=== PATIENT | female | born 2000 | race Two or more races ===

== ENCOUNTER 2023-06-27 10:07 | Emergency (ER) | payer BC, OTHER, SELFPAY ==
[2023-06-27 10:14] VITALS: BP 115/78; PULSE 109; RESP 16; TEMP 36.6; O2SAT 98; BMI 29.3
--- NOTE | 2023-06-27 10:20 | ECG_ITS ---
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
[2023-06-27 10:31] LABS: Basophils Absolute Auto 0.1 10^3/uL (0.0-0.1); Basophils Percent Auto 0.6 % (0.2-2.0); Eosinophils Absolute Auto 0.1 10^3/uL (0.0-0.7); Eosinophils Percent Auto 1.1 % (0.9-7.0); Hematocrit 45.5 % (36.0-48.0); Hemoglobin 14.8 g/dL (12.0-16.0); Immature Granulocytes Abs Auto 0.01 10^3/uL (0.00-0.03); Immature Granulocytes Pct Auto 0.1 % (0.0-0.5); Lymphocytes Absolute Auto 1.8 10^3/uL (1.2-3.8); Mean Corpuscular HGB Conc 32.5 g/dL (29.9-35.2); Mean Corpuscular Hemoglobin 27.7 pg (26.7-34.0); Mean Corpuscular Volume 85.2 fL (81.0-99.0); Mean Platelet Volume 10.1 fL (9.5-13.5); Monocytes Absolute Auto 0.4 10^3/uL (0.3-0.8); Monocytes Percent Auto 5.3 % (1.7-12.0); Neutrophils Absolute Auto 5.7 10^3/uL (1.4-6.5); Neutrophils Percent Auto 70.9 % (43.0-75.0); Platelet Count 320 10^3/uL (150-450); Red Blood Count 5.34 10^6/uL (4.20-5.40); Red Cell Distribution Width 12.5 % (11.0-15.0)
[2023-06-27 10:45] LABS: HCG Qualitative NEGATIVE (NEGATIVE)
[2023-06-27 10:54] LABS: Anion Gap 13.3; BUN Creatinine Ratio 17.2; Calcium 9.2 mg/dL (8.5-10.1); Carbon Dioxide 26.5 mmol/L (21.0-32.0); Chloride 104 mmol/L (98-107); Estimated GFR (African America >60 (>=60); Estimated GFR (Non-African Ame >60 (>=60); Glucose 93 mg/dL (74-106); Potassium 3.8 mmol/L (3.5-5.1); Sodium 140 mmol/L (136-145); Thyroid Stimulating Hormone <0.007 uIU/mL (0.358-3.740)
--- NOTE | 2023-06-27 11:06 | ED_ITS ---
HPI - General Adult General Chief complaint: Dizziness Stated complaint: FAST HEART/ DIZZINESS Time Seen by Provider: 06/27/23 10:16 Source: patient and family Mode of arrival: walk-in Limitations: no limitations History of Present Illness HPI narrative: 22-year-old female presents for palpitations. She has a history of thyroid disorder and is on medication for it. 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 She felt like her heart was racing. No fever or vomiting. She doesn't complain of chest pain or shortness of breath. Related Data Home Medications Medication Instructions Recorded Confirmed hydroxyzine HCl 25 mg tablet 25 mg PO Q8H PRN anxiety 06/27/23 06/27/23 methimazole 5 mg tablet 5 mg PO DAILY 06/27/23 06/27/23 Allergies Allergy/AdvReac Type Severity Reaction Status Date / Time No Known Drug Allergies Allergy Verified 06/27/23 10:19 Review of Systems ROS Narrative A ten point review of systems is negative except as noted above. PFSH PFSH Social History Smoking status: Never smoker Exam Narrative Exam Narrative: Nurses note and vital signs reviewed and patient is not hypoxic. General: The patient appears well and in no apparent distress. Patient is resting comfortably on cart. Skin: Warm, dry, no pallor noted. There is no rash noted. Head: Normocephalic, atraumatic Eye: Normal conjunctiva, no drainage Ears, Nose, Mouth, and Throat: oral mucosa is moist. Nares patent. Cardiovascular: Regular Rate and Rhythm, mild tachycardia Respiratory: Patient is in no distress, no accessory muscle use, lungs are clear to auscultation, no wheezing, rales or rhonchi Back: non-tender GI: soft and nontender Musculoskeletal: The patient has no evidence of calf tenderness, no pitting edema, symmetrical pulses noted bilaterally Neurological: A&O, normal speech Psychiatric: Cooperative Constitutional Vital Signs, click to edit/add: Last Vital Signs Temp 97.8 F 06/27/23 10:14 Pulse 109 H 06/27/23 10:14 Resp 16 06/27/23 10:14 BP 115/78 06/27/23 10:14 Pulse Ox 98 06/27/23 10:14 O2 Del Method Room Air 06/27/23 10:14 Course Vital Signs Vital signs: Vital Signs Temperature 97.8 F 06/27/23 10:14 Pulse Rate 109 H 06/27/23 10:14 Respiratory Rate 16 06/27/23 10:14 Blood Pressure 115/78 06/27/23 10:14 Pulse Oximetry 98 06/27/23 10:14 Oxygen Delivery Method Room Air 06/27/23 10:14 Temperature 97.8 F 06/27/23 10:14 Pulse Rate 109 H 06/27/23 10:14 Respiratory Rate 16 06/27/23 10:14 Blood Pressure 115/78 06/27/23 10:14 Pulse Oximetry 98 06/27/23 10:14 Oxygen Delivery Method Room Air 06/27/23 10:14 Medical Decision Making MDM Narrative Medical decision making narrative: Her workup is essentially negative. Thyroid-stimulating hormone is low and this is expected given her treatment. Her heart rate has come down to the 80s and 90s and she is able to be discharged home. I've no clinical suspicion of a thyroid storm. Treatment diagnosis and follow-up were discussed with the patient. Differential Diagnosis Differential Diagnosis: palpitations, anxiety, hyperthyroidism Lab Data Lab results reviewed: Yes I reviewed the patient's lab results Labs: Lab Results 06/27/23 Range/Units 10:25 WBC 8.0 (4.0-11.0) 10^3/uL RBC 5.34 (4.20-5.40) 10^6/uL Hgb 14.8 (12.0-16.0) g/dL Hct 45.5 (36.0-48.0) % MCV 85.2 (81.0-99.0) fL MCH 27.7 (26.7-34.0) pg MCHC 32.5 (29.9-35.2) g/dL RDW 12.5 (11.0-15.0) % Plt Count 320 (150-450) 10^3/uL MPV 10.1 (9.5-13.5) fL Neut % (Auto) 70.9 (43.0-75.0) % Lymph % (Auto) 22.0 (20.5-60.0) % [place] % (Auto) 5.3 (1.7-12.0) % Eos % (Auto) 1.1 (0.9-7.0) % Baso % (Auto) 0.6 (0.2-2.0) % Neut # (Auto) 5.7 (1.4-6.5) 10^3/uL Lymph # (Auto) 1.8 (1.2-3.8) 10^3/uL [place] # (Auto) 0.4 (0.3-0.8) 10^3/uL Eos # (Auto) 0.1 (0.0-0.7) 10^3/uL Baso # (Auto) 0.1 (0.0-0.1) 10^3/uL Abs Immat Gran (auto) 0.01 (0.00-0.03) 10^3/uL Imm/Tot Granulo (auto) 0.1 (0.0-0.5) % Sodium 140 (136-145) mmol/L Potassium 3.8 (3.5-5.1) mmol/L Chloride 104 (98-107) mmol/L Carbon Dioxide 26.5 (21.0-32.0) mmol/L Anion Gap 13.3 BUN 11.0 (7.0-18.0) mg/dL Creatinine 0.64 (0.55-1.02) mg/dL Est GFR ( Amer) >60 (>=60) Est GFR (Non-Af Amer) >60 (>=60) BUN/Creatinine Ratio 17.2 Glucose 93 (74-106) mg/dL Calcium 9.2 (8.5-10.1) mg/dL TSH <0.007 L (0.358-3.740) uIU/mL Serum HCG, Qual Negative (NEGATIVE) ECG Data Attestation: I personally reviewed and interpreted this ECG as follows: (EKG on my interpretation shows sinus tachycardia with a rate of 125.) Discharge Plan Discharge Chief Complaint: Dizziness Clinical Impression: Palpitations Patient Disposition: Home, Self-Care Time of Disposition Decision: 12:06 Condition: Good Mode of Transportation: Private Vehicle Prescriptions / Home Meds: No Action hydroxyzine HCl 25 mg tablet 25 mg PO Q8H PRN (Reason: anxiety) methimazole 5 mg tablet 5 mg PO DAILY Instructions: Heart Palpitations (DC) Stand Alone Forms: Portal Instructions Referrals: DEON WOODALL [Primary Care Provider] - 1 week
== END 2023-06-27 12:21 | disposition home or self-care (01) ==
PROVIDERS: Emergency Provider Emergency Medicine; PCP Nurse Practitioner Family
DX: R00.2 Palpitations (principal); E07.9 Disorder of thyroid, unspecified
CPT/HCPCS: 36415; 80048; 84443; 84703; 85025; 93005; 99284

== ENCOUNTER 2023-10-10 06:30 | Emergency (ER) | payer BC, OTHER, SELFPAY ==
[2023-10-10] VITALS (17 sets, daily range): BP systolic 118; BP diastolic 85; PULSE 59–80; RESP 12–25; TEMP 36.6; O2SAT 94–100; BMI 29.3
--- OUTSIDE RECORDS SUMMARY | 2023-10-10 07:02 | XMS_ITS | CCD ---
Author Organization [facility] Care Team Providers Care Clinical Provider Trainer Name Role Phone Tari Carmona Unavailable EMERSON ., YULIANA Admitting Unavailable EMERSON ., YULIANA Attending Unavailable GUERO ., BÁRBARA HARKINS Consulting DEON Marlow Primary Care Unavailable HARSHA HURST Consulting Unavailable DILLON ., DR DA SILVA Admitting Unavailable DILLON ., DR DA SILVA Consulting Unavailable DILLON ., DR DA SILVA Attending Unavailable TALISHA, DEON Primary Care Unavailable Deon Steinberg Primary Care Unavailable Blayne Do Attending Unavailable Blayne Do Admitting Unavailable Unavailable Primary Care Provider Kenzie Billy MDnifer Primary Care Provider DEON STEINBERG Attending Unavailab DEON Grove Referring Unavailab AURORA Ruiz Attending Unavailab CHANI Tariq Referring Unavailable DEON STEINBERG Referring Unavailab CHANI Tariq Attending Unavailable Medications Current Medications Medication Drug Class(es) Dates Sig (Normalized) Sig (Original) dextromethorphan hydrobromide 1.5 mg/ml / pyrilamine maleate 1.5 mg/ml oral solution (1 source) Uncompetitive R-mwkwhc-B-aspartate Receptor Antagonist, Sigma-1 Agonist Start: 11-09-2021 take 10 mL by mouth every eight hours [place] DM 7.5-7.5 MG/5ML 10 mL Orally every 8 hours for 5 days Oct, Active Ethinyl Estradiol / norelgestromin (1 source) Progestin, Estrogen Xulane Activ e fluticasone propionate 0.05 mg/actuat metered dose nasal spray (1 source) Corticosteroid Start: 11-09-2021 take 1 spray(s) nasal route once daily Flonase Allergy Relief 50 MCG/ACT 1 spray in each nostril Nasally Once a day for 14 day(s) Oct, Active Completed/Discontinued Medications Medication Drug Class(es) Dates Sig (Normalized) Sig (Original) [id number] 200 actuat albuterol 0.09 mg/actuat metered dose inhaler (1 source) beta2-Adrenergic Agonist Start: 07-24-2021 take 2 puff(s) by inhalation four times daily as needed Albuterol Sulfate HFA 108 (90 Base) MCG/ACT 2 puffs Inhalation qid prn Jul, Not-Taking Ethinyl Estradiol / norgestimate (7 sources) Progestin, Estrogen Start: 06-26-2023 norgestimate-ethiny l estradiol (Ortho-Cyclen) 0.25-35 MG-MCG tablet Indications: Encounter for surveillance of contraceptive pills take 1 tablet by mouth every morning 84 tablet 0 06/26/2023 Active Start: 06-26-2023 take 1 tablet by renia th once daily in the morning norgestimate 0.25 mg-ethinyl estradiol 35 mcg 0.25-35 mg-mcg per tablet Take 1 tablet by mouth every morning. 0 06/26/2023 Active Comment on above: Take 1 tablet by reina th every morning. hydrOXYzine hydrochloride 25 mg oral tablet (7 sources) Antihistamine Start: 06-17-20 23 hydrOXYzine HCl (ATARAX) 25 mg tablet Take 25 mg by mouth as needed. 0 06/17/2023 Active Comment on above: Take 25 mg by mouth as needed. methIMAzole 10 mg oral tablet (13 sources) Thyroid Hormone Synthesis Inhibitor Start: 08-20-19 24 take 1 tablet by mouth twice daily methIMAzole (TAPAZOLE) 10 mg tablet Indications: Hyperthyroidism Take 1 tablet by mouth two times a day. 60 tablet 5 08/20/2023 Active Start: 07-01-2023 take 1 tablet by reina th twice daily methIMAzole (TAPAZOLE) 10 mg tablet Indications: Hyperthyroidism Take 1 tablet by mouth two times a day. 60 tablet 5 07/01/2023 Active Start: 06-10-2023 take 1 tablet by reina th once daily in the morning methIMAzole (TAPAZOLE) 5 mg tablet Take 5 mg by mouth every morning. 0 06/10/2023 Active Comment on above: Take 5 mg by mouth e very morning. Take 1 tablet by reina th two times a day. predniSONE 20 mg oral tablet (1 source) Start: 07-24-19 take 1 tablet by mouth every twelve hours predniSONE 20 MG 1 tablet Orally bid for 5 day(s) Jul, Not-Taking 24 hr propranolol hydrochloride 60 mg extended release oral capsule (6 sources) beta-Adrenergic Coy Start: 08-20-19 take 1 capsule by mouth once daily propranolol ER (INDERAL LA) 60 mg 24 hr capsule Indications: Hyperthyroidism Take 1 capsule by mouth once daily. 30 capsule 5 08/20/2023 Active Start: 07-01-2023 take 1 capsule by mo uth once daily propranolol ER (INDERAL LA) 120 mg 24 hr capsule Indications: Hyperthyroidism Take 1 capsule by mouth once daily. 30 capsule 3 07/01/2023 Active Comment on above: Take 1 capsule by mo uth once daily. Problems Active Problems Problem Classification Problem Date Documented Da te Episodic/Chronic Acute and chronic tonsillitis (7 sources) Chronic adenotonsillitis; Translations: [Chronic tonsillitis and adenoiditis] Onset: 01-06-2023 07-01-2023 Chronic Anxiety disorders (14 sources) Anxiety; Translations: [Anxiety disorder, unspecified] Onset: 01-06-2023 07-01-2023 Chronic Heart valve disorders (7 sources) Mitral valve regurgitation; Translations: [Nonrheumatic mitral (valve) insufficiency] Onset: 01-06-2023 07-01-2023 Chronic Menstrual disorders (7 sources) Disorder of menstruation; Translations: [Irregular menstruation, unspecified] Onset: 01-06-2023 07-01-2023 Chronic Mood disorders (7 sources) Moderate major depression, single episode; Translations: [Major depressive disorder, single episode, moderate] Onset: 01-06-2023 07-01-2023 Chronic Nausea and vomiting (5 sources) Nausea with vomiting, unspecified; Translations: [NAUSEA WITH VOMITING UNSPECIFIED] Onset: 12-24-2021 Episodic Thyroid disorders (15 sources) Hyperthyroidism; Translations: [Thyrotoxicosis, unspecified without thyrotoxic crisis or storm] Onset: 01-06-2023 07-01-2023 Chronic Unclassified (1 source) CONTACT W/AND (SUSP) EXPOS COVID-19; Translations: [CONTACT W/AND (SUSP) EXPOS COVID-19] Onset: 12-24-2021 Unclassified (1 source) Contusion of right forearm, initial encounter; Translations: [Contusion of right forearm, initial encounter] Onset: 01-30-2023 Past or Other Problems Problem Classification Problem Date Documented Da te Episodic/Chronic Immunizations and screening for infectious disease (1 source) Contact with and (suspected) exposure to other viral communicable diseases Onset: 11-09-2021 Resolved: 11-09-2021 Episodic Other upper respiratory infections (5 sources) Acute upper respiratory infection, unspecified; Translations: [ACUTE UP RESPIRATORY INFECTION UNS] Onset: 11-09-2021 Resolved: 11-09-2021 Episodic Viral infection (7 sources) Verruca vulgaris; Translations: [Other viral warts] Onset: 05-29-2023 07-01-2023 Episodic Results Test Name Value Interpretation Reference Range Facility TSH BLOOD (AK,AV,EU,FV,HL,NAREN ,MM,SP)on 10-03-2023 Free T3 [Mass/Vol] 2.7 pg/mL 2.3 - 4.2 0 pg/ml [facility] Free T4 [Mass/Vol] 0.7 ng/dL Abnormal 0.83 - 1. 60 ng/dL [facility] TSH Qn 16.550 m[IU]/L Abnormal 0.270 - 4.200 mIU/L [facility] XR ABDOMEN 2 VIEWon 08-26-19 24 XR ABDOMEN 2 VIEW CLINICAL HISTORY: lower back pain, lower abdominal pain COMPARISON: FINDINGS: The bowel gas pattern is unremarkable. There are no dilated loops of bowel. There are no acute osseous changes. IMPRESSION: There are no acute intra-abdominal changes. ELECTRONICALLY SIGNED BY: Dennis Johnston MD Normal Not Available Isabel 07-31-2023 CHIDI Telephone (ENDOMN) MARÍA ANAYA ([id number]) 2 F Date Time Provider Department 07/31/23 CHANI COLES During your visit today, we recorded the following information about you: Hayes Poultry KillerAkiko 07/31/2023 10:52 AM Signed Updated labs from (location) [facility] Date labs collected 07/23/23 Date scanned in chart 07/31/23 Akiko Koo Compressed [employer] Pile Driver Operator II [facility]-F20 Allergies As of Date: 07/31/2023 (No Known Allergies) Date Reviewed: 07/01/2023 Reviewed by: Ramin Dunne Ma - Fully Assessed Reason for Visit: Outside Lab Results [753] Order(s):TSH AND FT4 MH PANEL [[id number]] Order #: [id number] Prescriptions as of 07/31/2023 - propranolol ER (INDERAL LA) 60 mg 24 hr capsule Take 1 capsule by mouth once daily. - methIMAzole (TAPAZOLE) 10 mg tablet Take 1 tablet by mouth two times a day. - hydrOXYzine HCl (ATARAX) 25 mg tablet Take 25 mg by mouth as needed. - methIMAzole (TAPAZOLE) 5 mg tablet Take 5 mg by mouth every morning. - norgestimate 0.25 mg-ethinyl estradiol 35 mcg 0.25-35 mg-mcg per tablet Take 1 tablet by mouth every morning. Problem List As Of Date 07/31/2023 Noted Resolved Anxiety [F41.9] 01/06/2023 Chronic adenotonsillitis [J35.03] 01/06/2023 Common wart [B07.8] 05/29/2023 Enlarged thyroid [E04.9] 01/06/2023 Major depressive disorder, single episode, mode*01/06/2023 Menstrual disorder [N92.6] 01/06/2023 Panic attacks [F41.0] 01/06/2023 Trace mitral regurgitation by prior echocardiog*01/07/20 23 Hyperthyroidism [E05.90] 07/01/2023 Encounter Status:Closed by CHANI COLES on 07/31/23 Normal [facility] CNPDorothy 07-28-2023 CHIDI Telephone (ENDOMN) MARÍA ANAYA ([id number]) 2 F Date Time Provider Department 07/28/23 CHANI COLES During your visit today, we recorded the following information about you: Andres Alexander 07/28/2023 3:10 PM Signed Called pt to her give number for her lab results. Pt sts she talk to the lab they have lost her has lost lab work and is looking for them now. Pt was instructed to call or send message when labs are found. pt requests a call regarding new medications prescribed pt can be reached via or number on file. Russellmadhu Rbavo Compressed [employer] Pile Driver Operator II [facility] F-20 Allergies As of Date: 07/28/2023 (No Known Allergies) Date Reviewed: 07/01/2023 Reviewed by: Ramin Dunne Ma - Fully Assessed Reason for Visit: Patient Update [1234] Prescriptions as of 07/28/2023 - hydrOXYzine HCl (ATARAX) 25 mg tablet Take 25 mg by mouth as needed. - methIMAzole (TAPAZOLE) 5 mg tablet Take 5 mg by mouth every morning. - norgestimate 0.25 mg-ethinyl estradiol 35 mcg 0.25-35 mg-mcg per tablet Take 1 tablet by mouth every morning. - methIMAzole (TAPAZOLE) 10 mg tablet Take 1 tablet by mouth two times a day. - propranolol ER (INDERAL LA) 120 mg 24 hr capsule Take 1 capsule by mouth once daily. Problem List As Of Date 07/28/2023 Noted Resolved Anxiety [F41.9] 01/06/2023 Chronic adenotonsillitis [J35.03] 01/06/2023 Common wart [B07.8] 05/29/2023 Enlarged thyroid [E04.9] 01/06/2023 Major depressive disorder, single episode, mode*01/06/2023 Menstrual disorder [N92.6] 01/06/2023 Panic attacks [F41.0] 01/06/2023 Trace mitral regurgitation by prior echocardiog*01/07/20 23 Hyperthyroidism [E05.90] 07/01/2023 Encounter Status:Closed by ANDRES ALEXANDER on 07/28/23 Normal [facility] CNCOon 07-16-2023 CNCO Letter Text [facility] CNPNon 07-16-2023 CNPN Telephone (ENDOMN) MARÍA ANAYA ([id number]) 2 F Date Time Provider Department 07/16/23 CHANI COLES ENDOMN During your visit today, we recorded the following information about you: Ania Murray 07/16/2023 10:15 AM Signed Patient requesting to go over 07/01 thyroid tests. Please call and advise at [phone] Ania Murray [employer] Pile Driver Operator II Diabetes AND Endocrinology X-20 Karyn Schuster 07/16/2023 11:48 AM Signed Received document and laboratory results from provider to send to the patient via mail. Mailed to address we have on file. KEILY MCLAUGHLIN Compressed Air Pile Driver Operator II Endocrinology AND Metabolism [place] [facility] X-20 Allergies As of Date: 07/16/2023 (No Known Allergies) Date Reviewed: 07/01/2023 Reviewed by: Ramin Dunne Ma - Fully Assessed Prescriptions as of 07/16/2023 - hydrOXYzine HCl (ATARAX) 25 mg tablet Take 25 mg by mouth as needed. - methIMAzole (TAPAZOLE) 5 mg tablet Take 5 mg by mouth every morning. - norgestimate 0.25 mg-ethinyl estradiol 35 mcg 0.25-35 mg-mcg per tablet Take 1 tablet by mouth every morning. - methIMAzole (TAPAZOLE) 10 mg tablet Take 1 tablet by mouth two times a day. - propranolol ER (INDERAL LA) 120 mg 24 hr capsule Take 1 capsule by mouth once daily. Problem List As Of Date 07/16/2023 Noted Resolved Anxiety [F41.9] 01/06/2023 Chronic adenotonsillitis [J35.03] 01/06/2023 Common wart [B07.8] 05/29/2023 Enlarged thyroid [E04.9] 01/06/2023 Major depressive disorder, single episode, mode*01/06/2023 Menstrual disorder [N92.6] 01/06/2023 Panic attacks [F41.0] 01/06/2023 Trace mitral regurgitation by prior echocardiog*01/07/20 Hyperthyroidism [E05.90] 07/01/2023 Encounter Status:Closed by KARYN SCHUSTER on 07/16/23 Normal [facility] CNCOon 07-01-2023 CNCO Letter Text Letter Text Normal [facility] CNOVon 07-01-2023 CNOV Office Visit (ENDOMN) MARÍA ANAYA ([id number]) 2 F Date Time Provider Department 07/01/23 10:10 AM CHANI COLES ENDOMN During your visit today, we recorded the following information about you: Pulse Blood pressure Weight Height 98/minute 147/76 70.3 kg 1.582 m Last Period 06/29/23 Ramin Dunne Ma 07/01/2023 9:30 AM Signed Thank you for choosing the [facility] Department of Endocrinology, Diabetes and Metabolism. Did you know that you need to call 48 hours in advance of your scheduled visit, if you are unable to make your appointment? The End[facility]inology [facility] Metabolism [place] thanks you for your commitment, because patients not showing to their appointment results in a lost opportunity for patients to receive world class health care at the [facility]. To Cancel an appointment, please choose one of the following: - Call the Appointment Call Center at [phone] - From [employer], Go to Appointments - Cancel Appts If cancelling, consider your need to reschedule to prevent further delays in your care. To Schedule an appointment, please choose one of the following: - Call the Appointment Call Center at [phone] - From [facility], Go to Appointments - Request an Appt Chani Coles MD 07/01/2023 12:35 PM Signed María Anaya is a 22 year old female who is presenting today July 01, 2023 for a Thyroid problem. Referring Physician: Deon Steinberg CNP Reason for visit: Hyperthyroidism X-rays with contrast dyes within last 3 months? no Previous laboratory results: No results found for: VITD25 , TSH , T4 , FTI , FREET4 , FREET3 , MICROSOMAB , THYG , TSI , TBI , T3 , [place] PAST MEDICAL HISTORY Diagnosis Date Hyperthyroidism 07/01/2023 FAMILY HISTORY Problem Relation Age of Onset other (type 2 DM) Mother Hypertension Mother Goiter Mother Hypertension Father other (tachycardia) Sister Thyroid Cancer Maternal Grandmother Diabetes Maternal Grandmother Diabetes Maternal Grandfather Hypertension Paternal Grandfather History reviewed. No pertinent surgical history. HPI Found to be hyperthyroid in May. Had fatigue and tremors before that that had been attributed to anxiety. Review of Systems Thyroid Pain: no Mass Effect: None Energy: reduced Moods: poor Sleep: Terminal insomnia Temp. Intolerance: Heat Intolerance Cardiac: OTHER Tachycardia CV: palpitations racing Gyne: Regular Menses on OCPs Resp: dyspnea GI: No blood in stool, pain with BM, tarry stool, persistent diarrhea or constipation Weight: decreased, 30-40 Lb in past few months Eyes: No Memory: Poor Diaphoresis: Increased. Skin: Negative M/S: negative Neuro: Frequent headaches Social History: Social History Tobacco Use Smoking status: Never Passive exposure: Never Smokeless tobacco: Never Substance Use Topics Alcohol use: Never Drug use: Never Family Hx: Thyroid disease Mother goiter, Mat GM thyroid cancer and Mat Uncle thyroid cancer PAST MEDICAL HISTORY Diagnosis Date Hyperthyroidism 07/01/2023 Physical Exam BP 147/76 Pulse 98 Ht 158.2 cm (5' 2.28 ) Wt 70.3 kg (155 lb) LMP 06/29/2023 BMI 28.09 kg/m? APPEARANCE: Well appearing, alert, in no acute distress. EYES BRAD, extra occular movements normal, 2+ upper lid edema. NECK Supple, no adenopathy; thyroid symmetric, moderately enlarged- 60 grams HEART RRR with normal S1 and S2, 2/6 systolocmurmur, no gallops, no JVD appreciated LUNGS clear to auscultation ABD bowel sounds normoactive, no bruits, soft, non-tender, non-distended, without organomegaly or palpable masses, no tenderness to palpation EXTREMITIES No deformities, No skin discoloration, and No edema NEURO Awake, alert and oriented x 3, Reflexes symmetrical, Faint tremor, Cranial nerves II-XII grossly intact SKIN Skin color, texture, turgor normal, no suspicious rashes or lesions, very mildly moist. Other: Here with her mother. IMPRESSION: Consult Patient is sent at the request of Deon Steinberg CNP for my opinion regarding Hyperthyroidism. My final recommendations will be communicated back to the requesting physician by way of a copy of today's office notes. Impression: Lab from patient phone Jun 05, 2023 TSH <0.01, T3 353 (ref [id number]). Most likely Graves disease. Has mild eye signs despite patient denying eye symptoms. Recommendations: Lab today for free T3 and TSI. Increase methimazole dose to 10 mg bid. Add propranolol-ER- 120 mg for cardiac symptoms. RTN 6 months Lab letter given to the patient to have lab drawn in 3 weeks. Chani Coles MD Endocrinology Staff CC Deon Steinberg CNP Referring Provider: DEON STEINBERG [[id number]] Allergies As of Date: 07/01/2023 (No Known Allergies) Date Reviewed: 07/01/2023 Reviewed by: Asad Dunne Ma (more content not included)... Normal [facility] Isabel 07-01-2023 ANNAN Telephone (ENDOMN) MARÍA ANAYA ([id number]) [birth year] F Date Time Provider Department 07/01/23 CHANI COLES During your visit today, we recorded the following information about you: Karyn Schuster 07/01/2023 12:48 PM Signed Patient's external provider requested patient's most recent endocrinology office notes be faxed to them. Faxed office notes from visit date 07/01/2023 to DEON STEINBERG RETAIL MANAGER IN [employer]INING [phone] Transmitted successfully. KEILY MCLAUGHLIN Compressed Air Pile Driver Operator II Endocrinology AND Metabolism [place] [facility] X-20 Allergies As of Date: 07/01/2023 (No Known Allergies) Date Reviewed: 07/01/2023 Reviewed by: Ramin Dunne Ma - Fully Assessed Reason for Visit: Request for Clinical Notes [Other] Cmt: Chart notes Request Prescriptions as of 07/01/2023 - hydrOXYzine HCl (ATARAX) 25 mg tablet Take 25 mg by mouth as needed. - methIMAzole (TAPAZOLE) 5 mg tablet Take 5 mg by mouth every morning. - norgestimate 0.25 mg-ethinyl estradiol 35 mcg 0.25-35 mg-mcg per tablet Take 1 tablet by mouth every morning. - methIMAzole (TAPAZOLE) 10 mg tablet Take 1 tablet by mouth two times a day. - propranolol ER (INDERAL LA) 120 mg 24 hr capsule Take 1 capsule by mouth once daily. Problem List As Of Date 07/01/2023 Noted Resolved Anxiety [F41.9] 01/06/2023 Chronic adenotonsillitis [J35.03] 01/06/2023 Common wart [B07.8] 05/29/2023 Enlarged thyroid [E04.9] 01/06/2023 Major depressive disorder, single episode, mode*01/06/2023 Menstrual disorder [N92.6] 01/06/2023 Panic attacks [F41.0] 01/06/2023 Trace mitral regurgitation by prior echocardiog*01/07/20 Hyperthyroidism [E05.90] 07/01/2023 Encounter Status:Closed by KARYN SCHUSTER on 07/01/23 [facility] FREE BLDon 07-01-2023 Free T3 [Mass/Vol] 11.2 pg/mL High 2.3 - 4.1 pg/mL [facility] T3Free SerPl-mCncon 07-01-20 23 Free T3 [Mass/Vol] 11.2 pg/mL High 2.3-4.1 [facility] Comment on above: Order Comment: Speci max Type: BLOOD SPECIMEN Ordering Facility: [facility] Address: [address] [place] [address] Performed By: #### 3 051-0 #### [facility] CLIA [id number] [address] [place] [address] [place] THYROID STIMULATING IMMUNOGL OBULIN BLOODon 07-01-2023 Thyroid stimulating immunoglobulins actual/normal (S) [Relative mass conc] 20.20 IU/L High <0.55 IU/L [facility] TSI Qualitative Positive Abnormal Negative [facility] Thyroid stimulating immunoglobulins actual/normal (S) [Relative mass conc] 20.20 IU/L High <0.55 [facility] Comment on above: Order Comment: Specmiky santana Type: BLOOD SPECIMEN Ordering Facility: [facility] Address: [address] [place] [address] Result Comment: Thyr oid Stimulating Immunoglobulin test is used as an aid in diagnosis of autoimmune hyperthyroidism especially in patients with Grave's orbitopathy and dermopathy. Low positive TSH receptor stimulating antibody levels may occasionally be found in patients with autoimmune hypothyroidism. Clinical correlation is required. Performed By: #### T SIGIM #### [facility] CLIA [id number] [address] [place] [address] [place] TSI QUALITATIVE Positive Abnormal Negative [facility] Comment on above: Order Comment: Speci max Type: BLOOD SPECIMEN Ordering Facility: [facility] Address: [address] [place] [address] Performed By: #### T SIGIM #### [facility] CLIA [id number] [address] [place] [address] [place] XR elbow RT min 3V*on 2022 XR elbow RT min 3V* [facility] [address] [place] [address] [place] [address] XRay Report Signed Patient: María Anaya MR#: [id number] : 2000 Acct:[id number] Age/Sex: 22 / F ADM Date: 01/30/23 Loc: ER Room: Type: [facility] ER Attending Dr: Copies to: Blayne Do PA-C Ordering Provider: Blayne Do PA-C Date of Service: 01/30/23 XR/XR elbow RT min 3V*: Extremity Injury, Upper XR elbow RT min 3V* 01/30/2023 7:29 PM SIGNS AND SYMPTOMS: Fall, pain in right elbow PROTOCOL: Frontal, lateral, and oblique radiographs of the right elbow COMPARISON: None FINDINGS: The joint spaces are preserved. There is no fracture or dislocation. No significant soft tissue swelling. No joint effusion. XR/XR elbow RT min 3V* IMPRESSION: No acute bony injury. No joint effusion or significant soft tissue swelling. Impression dictated by: Bruce Arroyo M.D.01/30/2023 8:48 PM Dictation Location: [place] [address] Transcribed By: [facility] 01/30/232047 Dictated By: Bruce Arroyo II, MD 01/30/232044 Signed By: 01/30/232047 [facility] AMYLASEon 11-23-2022 Amylase [Catalytic activity/Vol] 53 U/L Normal 25-115 [facility] Comment on above: Performed By: #### A MY, LIPA, CMP #### [facility] [address] [place] [address] Dr. Baorn Chavira CBC AUTO DIFFon 11-23-2022 BASO # 0.0 103/ul Normal 0.0-0.1 [facility] Comment on above: Performed By: #### C BC #### [facility] [address] [place] [address] Dr. Baron Chavira Basophils/100 WBC (Bld) 0.3 % Normal 0.2-2.0 [facility] Comment on above: Performed By: #### C BC #### [facility] [address] [place] [address] Dr. Baron Chavira EO # 0.1 103/ul Normal 0.0-0.7 [facility] Comment on above: Performed By: #### C BC #### [facility] [address] [place] [address] Dr. Baron Chavira Eosinophils/100 WBC (Bld) 1.4 % Normal 0.9-7.0 [facility] Comment on above: Performed By: #### C BC #### [facility] [address] [place] [address] Dr. Baron Chavira Erythrocyte distribution width (RBC) [Ratio] 12.7 % Normal 11.0-15.0 [facility] Comment on above: Performed By: #### C BC #### [facility] [address] [place] [address] Dr. Baron Chavira Hematocrit (Bld) [Volume fraction] 43.1 % Normal 36.0-48.0 [facility] Comment on above: Performed By: #### C BC #### [facility] [address] [place] [address] Dr. Baron Chavira Hemoglobin (Bld) [Mass/Vol] 14.3 g/dL Normal 12.0-16.[address] [facility] Comment on above: Performed By: #### C BC #### [facility] [address] [place] [address] Dr. Baron Chavira IG # 0.02 10e3/ul Normal 0.00-0.[address] [facility] Comment on above: Performed By: #### C BC #### [facility] [address] [place] [address] Dr. Baron Chavira IG % 0.2 % Normal 0.0-0.[address] [facility] [facility] Comment on above: Performed By: #### C BC #### [facility] [address] [place] [address] Dr. Baron Chavira LYMPH # 2.3 103/ul Normal 1.2-3.[address] [facility] Comment on above: Performed By: #### C BC #### [facility] [address] [place] [address] Dr. Baron Chavira Lymphocytes/100 WBC (Bld) 23.7 % Normal 20.5-60.0 [facility] Comment on above: Performed By: #### C BC #### [facility] [address] [place] [address] Dr. Baron Chavira MANUAL DIFF REQ NO Normal [facility] Comment on above: Performed By: #### C BC #### [facility] [address] [place] [address] Dr. Baron Chavira MCH (RBC) [Entitic mass] 28.4 pg Normal 26.7-34.0 [facility] Comment on above: Performed By: #### C BC #### [facility] [address] [place] [address] Dr. Baron Chavira MCHC (RBC) [Mass/Vol] 33.2 g/dL Normal 29.9-35.2 [facility] Comment on above: Performed By: #### C BC #### [facility] [address] [place] [address] Dr. Baron Chavira MCV (RBC) [Entitic vol] 85.7 fL Normal 81.0-99.0 [facility] Comment on above: Performed By: #### C BC #### [facility] [address] [place] [address] Dr. Baron Chavira MONO # 0.7 103/ul Normal 0.3-0.8 [facility] Comment on above: Performed By: #### C BC #### [facility] [address] [place] [address] Dr. Baron Chavira Monocytes/100 WBC (Bld) 7.2 % Normal 1.7-12.0 [facility] Comment on above: Performed By: #### C BC #### [facility] [address] [place] [address] Dr. Baron Chavira NEUT # 6.5 103/ul Normal 1.4-6.5 [facility] Comment on above: Performed By: #### C BC #### [facility] [address] [place] [address] Dr. Baron Chavira Neutrophils/100 WBC (Bld) 67.2 % Normal 43.0-75.0 [facility] Comment on above: Performed By: #### C BC #### [facility] [address] [place] [address] Dr. Baron Chavira Platelet mean volume (Bld) [Entitic vol] 10.1 fL Normal 9.5-13.5 [facility] Comment on above: Performed By: #### C BC #### [facility] [address] [place] [address] Dr. Baron Chavira PLT 265 103/ul Normal 150-450 [facility] Comment on above: Performed By: #### C BC #### [facility] [address] [place] [address] Dr. Baron Chavira RBC 5.03 106/ul Normal 4.20-5.40 [facility] Comment on above: Performed By: #### C BC #### [facility] [address] [place] [address] Dr. Baron Chavira WBC 9.7 103/ul Normal 4.0-11.0 [facility] Comment on above: Performed By: #### C BC #### [facility] [address] [place] [address] Dr. Baron Chavira LIPASEon 11-23-2022 Lipase [Catalytic activity/Vol] 120.0 U/L Normal 73.0-393.0 [facility] Comment on above: Performed By: #### A SVETLANA LIPA, CMP #### [facility] [address] [place] [address] Dr. Baron Chavira PROF 14(COMP METB)on 023 Albumin [Mass/Vol] 3.1 g/dL Critically low 3.4-5.[address] [facility] Comment on above: Performed By: #### A SVETLANA LIPA, CMP #### [facility] [address] [place] [address] Dr. Baron Chavira Albumin/Globulin [Mass ratio] 0.8 {ratio} Normal [facility] Comment on above: Performed By: #### A SVETLANA LIPAnam, CMP #### [facility] [address] [place] [address] Dr. Baron Chavira ALP [Catalytic activity/Vol] 75 U/L Normal 46-116 [facility] Comment on above: Performed By: #### A SVETLANA LIPA, CMP #### [facility] [address] [address] [address] Baron Chavira ALT [Catalytic activity/Vol] 20 U/L Normal 14-59 [facility] Comment on above: Performed By: #### A SVETLANA LIPA, CMP #### [facility] [address] [address] [address] Baron Chavira Anion gap [Moles/Vol] 11.7 mmol/L Normal [facility] Comment on above: Performed By: #### A SVETLANA LIPA, CMP #### [facility] [address] [place] [address] Dr. Baron Chavira AST [Catalytic activity/Vol] 16 U/L Normal 15-37 [facility] Comment on above: Performed By: #### A SVETLANA LIPA, CMP #### [facility] [address] [place] [address] Dr. Baron Chavira Bilirubin [Mass/Vol] 0.3 mg/dL Normal 0.2-1.0 [facility] Comment on above: Performed By: #### A SVETLANA LIPA, CMP #### [facility] [address] [place] [address] Dr. Baron Chavira Calcium [Mass/Vol] 8.7 mg/dL Normal 8.5-10.1 [facility] Comment on above: Performed By: #### A SVETLANA LIPA, CMP #### [facility] [address] [place] [address] Dr. Baron Chavira Chloride [Moles/Vol] 106 mmol/L Normal 98-107 [facility] Comment on above: Performed By: #### A SVETLANA LIPA, CMP #### [facility] [address] [place] [address] Dr. Baron Chavira CO2 [Moles/Vol] 26.8 mmol/L Normal 21.0-32.0 [facility] Comment on above: Performed By: #### A SVETLANA LIPA, CMP #### [facility] [address] [address] [address] Baron Chavira Creatinine [Mass/Vol] 0.72 mg/dL Normal 0.55-1.02 [facility] Comment on above: Performed By: #### A MY, LIPA, CMP #### [facility] [address] [address] [address] Baron Chavira EGFR-AF POLISH >60 Normal >=60 [facility] Comment on above: Performed By: #### A MY, LIPA, CMP #### [facility] [address] [address] [address] Baron Chavira EGFR-NON AF POLISH >60 Normal >=60 [facility] Comment on above: Performed By: #### A MY, LIPA, CMP #### [facility] [address] [address] [address] Baron Chavira Globulin (S) [Mass/Vol] 3.7 g/dL Normal [facility] Comment on above: Performed By: #### A MY, LIPA, CMP #### [facility] [address] [address] [address] Baron Chavira Glucose [Mass/Vol] 92 mg/dL Normal 74-106 [facility] Comment on above: Performed By: #### A MY, LIPA, CMP #### [facility] [address] [address] [address] Baron Chavira Potassium [Moles/Vol] 3.5 mmol/L Normal 3.5-5.[address] [facility] Comment on above: Performed By: #### A MY, LIPA, CMP #### [facility] [address] [address] [address] Baron Chavira Protein [Mass/Vol] 6.8 g/dL Normal 6.4-8.2 [facility] Comment on above: Performed By: #### A MY, LIPA, CMP #### [facility] [address] [address] [address] Baron Chavira Sodium [Moles/Vol] 141 mmol/L Normal 136-145 [facility] Comment on above: Performed By: #### A MY, LIPA, CMP #### [facility] [address] [place], [place] [address] Dr. Baron Chavira Urea nitrogen [Mass/Vol] 11.0 mg/dL Normal 7.0-18.0 [facility] Comment on above: Performed By: #### A MY, LIPA, CMP #### [facility] [address] [place], [place] [address] Dr. Baron Chavira Urea nitrogen/Creatinine [Mass ratio] 15.3 mg/mg Normal [facility] Comment on above: Performed By: #### A MY, LIPA, CMP #### [facility] [address] [place], [place] [address] Dr. Baron Chavira US Pelvic, Transabdominalon 06-04-2022 US Pelvic, Transabdominal FINDINGS: Uterus 6.1 x 4.9 x 2.5 cm Endometrium 3 mm Right Ovary3.3 x 2.2 x 2.0 cm Left Ovary2.1 x 2.2 x 1.7 cm The uterus is normal in size and orientation. No worrisome mass lesions are seen. Endometrium appears unremarkable. No fluid is seen within the cul-de-sac. Both ovaries appear normal for this age. IMPRESSION: Normal pelvic ultrasound appearance Report reported and signed by Silvino Dillon on 06/05/2022 0658 Normal [facility] [employer] Covid-19 PCR (CVDTB)on SARS-CoV-2 (COVID-19) RNA DEDE+probe Ql (Unsp spec) Not detected Normal NOT DETECTED [facility] Comment on above: Result Comment: When diagnostic testing is negative, the possibility of a false negative should be considered in the context of a patient's recent exposures and the presence of clinical signs and symptoms consistent with SARS-CoV-2. This test is not yet approved or cleared by the [place] FDA. When there are no FDA-approved or cleared tests available, and other criteria are met, FDA can make tests available under an emergency access mechanism called an Emergency Use Authorization (EUA). The EUA for this test is supported by the [place] of Health and Human Service's declaration that circumstances exist to justify the emergency use of in vitro diagnostics for the detection and/or diagnosis of the virus that causes COVID-19. This EUA will remain in effect for the duration of the COVID-19 declaration justifying emergency of IVDs, unless it is terminated or revoked by the FDA (after which the test may no longer be used). Performed By: #### C VDTBH #### [facility] [address] [place] [address] Dr. Baron Chavira GROUP A STREP CULTUREon S. pyogenes Ag Ql (Unsp spec) Culture Observations: NEGATIVE FOR GROUP A STREPTOCOCCUS. Normal The [facility] Comment on above: Performed By: #### S SCRN, GRASTCX #### [facility] [address] [place] [address] Dr. Baron Chavira INFLUENZA A AND B AGon 12-20 INFLUANE SEE BELOW Normal [facility] Comment on above: Result Comment: Nega tive for Flu A protein angiten. Infection due to Flu A cannot be ruled out. Flu A angiten in the sample may be below the detection limit of the test. Performed By: #### I NFLUAB #### [facility] [address] [place] [address] Dr. Baron Chavira INFLUBNEG SEE BELOW Normal [facility] Comment on above: Result Comment: Nega tive for Flu B protein antigen. Infection due to Flu B cannot be ruled out. Flu B antigen in the sample may be below the detection limit of the test. Performed By: #### I NFLUAB #### [facility] [address] [place] [address] Dr. Baron Chavira INFLUENZA A AG Negative Normal NEGATIVE SEE COMMENT [facility] Comment on above: Performed By: #### I NFLUAB #### [facility] [address] [place] [address] Dr. Baron Chavira INFLUENZA B AG Negative Normal NEGATIVE SEE COMMENT [facility] Comment on above: Performed By: #### I NFLUAB #### [facility] [address] [place] [address] Dr. Baron Chavira INTERNAL CONTROLS Within Normal Limits Normal Wi thin Normal Limits [facility] Comment on above: Performed By: #### I NFLUAB #### [facility] [address] [place], [place] [address] Dr. Baron Chavira STREPT SCREENon 12-20-2021 STREP SCREEN A Negative Normal NEGATIVE [facility] Comment on above: Performed By: #### S SCRN, GRASTCX #### [facility] [address] [place], [place] [address] Dr. Baron Chavira Quick Fluon 11-09-2021 FLUAV Ab CF (S) [Titer] Negative [employer] Other FLUBV Ab CF (S) [Titer] Negative [employer] Other US Thyroidon 08-02-2021 US Thyroid HISTORY: Enlarged thyroid gland FINDINGS: Right Lobe: 4.3 x 1.5 x 1.2 cm Left Lobe: 4.2 x 1.4 x 1.1 cm Isthmus (Thickness) 2mm Normal thyroid volume. Slight heterogeneous echotexture, no suspicious nodule or mass. Normal vascularity. IMPRESSION: 1. Slight thyroid heterogeniety, normal volume. 2. No suspicious nodule. Normal echotexture involves the thyroid gland. No significant enlargement is identified. No suspicious cystic or solid mass lesions are seen. IMPRESSION: Normal thyroid ultrasound. RECOMMENDATIONS CANCER RISK (ACR TI-RADS 2018) TR1: no FNA required TR1: 0.3% TR2: no FNA required TR2: 1.5 % TR3>: 1.5 cm follow up, >2.5 cm FNA TR3: 4.8 % Follow up 1, 3, 5 years TR4:>1.0 cm follow up >1.5 cm FNA TR4: 9.1 % Follow up: 1, 2, 3 and 5 years TR5:> 0.5 cm follow up, >1.0 cm FNA TR5: 35% Annual follow up for up to 5 years Biopsy is recommended for suspicious lesions (TR3-TR5) with the above size criteria. If there are multiple nodules, the two with the highest ACR TI-RADS grades should be sampled (rather than the two largest) Interval enlargement on follow up is felt to be significant if there is a increase of 20% and 2 mm in two dimensions, or a 50% increase in volume. If the ACR TI-RAD level increases between scans, and interval scan the following year is again recommended. Report reported and signed by Silvino Dillon on 08/02/2021 1448 Normal [facility] [employer] Vital Signs Date Time Vital Sign Value Performing Clinician Facility 07-01-2023 09:33-0500 Body height 158.2 cm Chani Coles MD Work Phone: [facility] 07-01-2023 09:33-0500 Body weight 70.31 kg Chani Coles MD Work Phone: [facility] 07-01-2023 09:33-0500 Diastolic blood pressure 76 mm[Hg] Chani Coles MD Work Phone: [facility] 07-01-2023 09:33-0500 Heart rate 98 /min Chani Coles MD Work Phone: [facility] 07-01-2023 09:33-0500 Systolic blood pressure 147 mm[Hg] Chani Coles MD Work Phone: [facility] 11-09-2021 16:20-0400 Body height 157.48 cm Tari Carmona Other [employer] Other 11-09-2021 16:20-0400 Body mass index (BMI) [Ratio] 31.64 kg/m2 Tari Carmona Other [employer] Other 11-09-2021 16:20-0400 Body temperature 98 [degF] Tari Carmona Other [employer] Other 11-09-2021 16:20-0400 Body weight 78.47 kg Tari Carmona Other [employer] Other 11-09-2021 16:20-0400 Respiratory rate 18 /min Tari Carmona Other [employer] Other 11-09-2021 16:20-0400 SaO2% (BldA) [Mass fraction] 97 % Tari Carmona Other [employer] Other Encounters Encounter Date Encounter Type Care Provider Facility Start: 10-09-2023 ambulatory Chani Coles MD Work Phone: Endocrinology Start: 10-09-2023 E-mail encounter fro m caregiver Chani Coles MD Work Phone: [facility] Start: 10-09-2023 Telephone encounter Chani prasad MD Work Phone: Endocrinology Comment on above: Outside Lab Results Start: 10-06-2023 ambulatory Chani Coles MD Work Phone: Endocrinology Comment on above: blood results Start: 09-20-2023 ambulatory Chani Coles MD Work Phone: Endocrinology Comment on above: blood work Start: 08-26-2023 End: 08-27-2023 ambulatory DEON STEINBERG Not Available Start: 08-26-2023 Chart abstracting Deon Steinberg YARD HOSTLER Work Phone: [facility] Start: 07-01-2023 Telephone encounter Chani prasad MD Work Phone: Endocrinology Comment on above: Request for Clinical Notes (Chart notes Request) Start: 07-01-2023 End: 07-02-2023 ambulatory CHANI COLES Facility:[facility] Start: 07-01-2023 End: 07-01-2023 Patient encounter procedure Chani Coles MD Work Phone: Endocrinology Comment on above: Hyperthyroidism (Sonia christiano Dx) Start: 06-25-2023 End: 06-26-2023 ambulatory AURORA FLORES Not Available Start: 01-30-2023 End: 01-30-2023 Emergency department patient visit Deon Steinberg Facility:[facility] Start: 11-23-2022 End: 11-23-[address] AVINASH CARRANZA . Facility: Start: 12-20-2021 End: 12-20-2021 ambulatory YULIANA NORMAN . Facility: Start: 11-09-2021 End: 11-09-2021 ambulatory Tari Carmona Other [employer] Other Start: 11-09-2021 Office outpatient vi sit 15 minutes Tari Carmona [facility] Procedures Date Procedure Procedure Detail Performing Clinician Start: 10-02-2023 TSH BLOOD (EU,FV,HL,NAREN,MM,SP) [facility] Provider Plan of Treatment Date Care Activity Detail Author Start: 01-30-2033 Urine microalbumin profile DTaP,Tdap,Td Vaccine (8 - Td or Tdap) [facility] Start: 01-18-2024 Influenza vaccination Influenza Vacc ine (#1) [facility] Comment on above: Postponed from 03/21 (Patient Refused) Start: 08-26-2023 End: 08-26-2023 Patient encounter procedure 08/26/2023 4:00 PM EST Office Visit [facility] [address] [place] [id number] Deon Steinberg NP [address] [place], [place] [id number] [facility] Start: 03-21-2023 Covid-19 Vaccine ( season) Covid-19 Vaccine ( season) [facility] Start: 03-21-2023 Influenza vaccination Influenza Vacc ine (#1) [facility] Start: 2022 Screening for malign ant neoplasm of cervix Pap Testing [facility] Start: 10-18-2019 Annual PCP Team Senior Etl Developer john Disease Visit Annual PCP Team Chronic Disease Visit [facility] Start: 10-18-2019 GC (Gonorrhea) Scree brittni () GC (Gonorrhea) Screening () [facility] Start: 10-18-2019 Hepatitis C screening Hepatitis C Sc reening [facility] Start: 10-18-2019 HIV screening HIV Screening [facility] Start: 10-18-2019 Screening for Chlamy harvey trachomatis Chlamydia Screening () [facility] Start: 2017 Meningococcal B Vacc ine: Consider Based On Risk (1 of 2 - Patient Seeks Protection) Meningococcal B Vaccine: Consider Based On Risk (1 of 2 - Patient Seeks Protection) [facility] Start: 2016 HPV Vaccine (1 - 3-d ose series) HPV Vaccine (1 - 3-dose series) [facility] Start: 10-18-2015 Peds To Adult Transi tion Annual Assessment Peds To Adult Transition Annual Assessment [facility] Start: 2013 Peds To Adult Transi tion Initial Discussion Peds To Adult Transition Initial Discussion [facility] Start: 2010 HPV Vaccine (1 - 2-d ose series) HPV Vaccine (1 - 2-dose series) [facility] Immunizations Immunization Date Immunization Notes Care Provider Fa cility 01-30-2023 tetanus toxoid, redu tete diphtheria toxoid, and acellular pertussis vaccine, adsorbed Chani Coles MD Work Phone: [facility] Work Phone: 01-03-2021 COVID-19 original vaccine, full dose, monovalent (MODERNA) Chani Coles MD Work Phone: [facility] Work Phone: 12-06-2020 COVID-19 original vaccine, full dose, monovalent (MODERNA) Chani Coles MD Work Phone: [facility] Work Phone: 03-02-2019 meningococcal polysaccharide (groups A, C, Y and W-135) diphtheria toxoid conjugate vaccine (MCV4P) Chani Coles MD Work Phone: [facility] Work Phone: 08-07-2017 influenza, injectabl e, quadrivalent, preservative free Chani Coles MD Work Phone: [facility] Work Phone: 08-07-2017 influenza virus vacc ine, unspecified formulation Chani Coles MD Work Phone: [facility] 10-29-2013 diphtheria, tetanus toxoids and pertussis vaccine Chani Coles MD Work Phone: [facility] Work Phone: 10-29-2013 hepatitis A vaccine, pediatric/adolescent dosage, 2 dose schedule Chani Coles MD Work Phone: [facility] Work Phone: 10-29-2013 meningococcal ACWY vaccine, unspecified formulation Chani Coles MD Work Phone: [facility] Work Phone: 02-02-2007 diphtheria, tetanus toxoids and acellular pertussis vaccine, unspecified formulation Chani Coles MD Work Phone: [facility] Work Phone: 02-02-2007 measles, mumps and rubella virus vaccine Chani Coles MD Work Phone: [facility] Work Phone: 02-02-2007 poliovirus vaccine, inactivated Chani Coles MD Work Phone: [facility] Work Phone: 05-10-2003 diphtheria, tetanus toxoids and acellular pertussis vaccine, unspecified formulation Chani Coles MD Work Phone: [facility] Work Phone: 05-10-2003 poliovirus vaccine, inactivated Chani Coles MD Work Phone: [facility] Work Phone: 01-28-2003 haemophilus influenz ae type b vaccine, HbOC conjugate Chani Coles MD Work Phone: [facility] Work Phone: 01-28-2003 pneumococcal conjuga te vaccine, 7 valent Chani Coles MD Work Phone: [facility] Work Phone: 10-29-2002 hepatitis B vaccine, pediatric or pediatric/adolescent dosage Chani Coles MD Work Phone: [facility] Work Phone: 10-29-2002 measles, mumps and rubella virus vaccine Chani Coles MD Work Phone: [facility] Work Phone: 10-29-2002 pneumococcal conjuga te vaccine, 7 valent Chani Coles MD Work Phone: [facility] Work Phone: 05-26-2002 diphtheria, tetanus toxoids and acellular pertussis vaccine, unspecified formulation Chani Coles MD Work Phone: [facility] Work Phone: 05-26-2002 haemophilus influenz ae type b vaccine, HbOC conjugate Chani Coles MD Work Phone: [facility] Work Phone: 05-26-2002 pneumococcal conjuga te vaccine, 7 valent Chani Coles MD Work Phone: [facility] Work Phone: 04-02-2002 diphtheria, tetanus toxoids and acellular pertussis vaccine, unspecified formulation Chani Coles MD Work Phone: [facility] Work Phone: 04-02-2002 haemophilus influenz ae type b vaccine, HbOC conjugate Chani Coles MD Work Phone: [facility] Work Phone: 04-02-2002 pneumococcal conjuga te vaccine, 7 valent Chani Coles MD Work Phone: [facility] Work Phone: 04-02-2002 poliovirus vaccine, inactivated Chani Coles MD Work Phone: [facility] Work Phone: 01-22-2002 diphtheria, tetanus toxoids and acellular pertussis vaccine, unspecified formulation Chani Coles MD Work Phone: [facility] Work Phone: 01-22-2002 haemophilus influenz ae type b conjugate and Hepatitis B vaccine Chani Coles MD Work Phone: [facility] Work Phone: 01-22-2002 poliovirus vaccine, inactivated Chani Coles MD Work Phone: [facility] Work Phone: 2001 hepatitis B vaccine, pediatric or pediatric/adolescent dosage Chani Coles MD Work Phone: [facility] Work Phone: Payers Date Payer Category Payer Self-pay 2022 Private Health Insurance [id number] 2021 Unknown [id number] 2001 Unknown [id number] 2001 Unknown [id number] 2001 Unknown [id number] 2001 Unknown [id number] 2001 Unknown [id number] 1959 [facility] [id number] 1959 Unknown [id number] 1959 Unknown [id number] Unknown [id number] Social History Date Type Detail Facility Unknown if ever smoked [employer] Other Start: 07-01-2023 End: 08-25-2023 [facility]igned At [facility] Start: 05-29-2023 End: 07-01-2023 Tobacco smoking status NHIS Never smoked tobacco [facility] Start: 05-29-2023 End: 07-01-2023 Tobacco use and exposure Smokeless tobacco non-user [facility] Start: 07-01-2023 Alcohol intake Lifetime non-d cynthia (finding) [facility] Start: 07-01-2023 End: 08-25-2023 History of Social function [facility] Healthcare National Score (1-100), lower number is lower risk 65 [facility] Start: 2000 Sex Assigned At Not on file [facility] Start: 06-25-2023 Alcohol intake Ex-drinker (finding) [facility] Healthcare Are you now , , , , never or living with a partner? Refused [facility] Healthcare (I/We) worried whether (my/our) food would run out before (I/we) got money to buy more. DK or Refused [facility] Healthcare Start: 10-02-2022 Gender identity Identifies as female gender (finding) [facility] Healthcare NEGATED: Highlighted rowStart: SALOF History of tobacco use Passive smoker [facility] Clinical Notes 11-09-2021 to 10-09-2023 Telephone Encounter - Chani Coles MD - 10/09/2023 7:01 AM EDTTelephone Encounter - Theresa Trejo - 10/09/2023 6:45 AM EDTTelephone Encounter - Radha Adames RN - 09/22/2023 7:22 AM EST Note Date & Type Note Facility 10-09-2023 Miscellaneous Notes Your thyroid is now low. Reduce methimazole to 1/2 tab daily. Chani Coles MD documented in this encounter [facility] 10-09-2023 Miscellaneous Notes Updated labs from (location) [facility]. Date labs collected 10/02/23. Date scanned in chart 10/09/23. 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 documented in this encounter [facility] 07-01-2023 Miscellaneous Notes Patient's external provider requested patient's most recent endocrinology office notes be faxed to them. Faxed office notes from visit date 07/01/2023 to DEON STEINBERG CNP [phone] Transmitted successfully. KEILY MCLAUGHLIN Compressed [employer] Pile Driver Operator Endocrinology & Metabolism [facility] X-20 documented in this encounter [facility] 07-01-2023 Note HNO ID: [id number] Author: Chani Coles MD Service: ? Author Type: Physician Type: Progress Notes Filed: 07/01/2023 12:35 PM Note Text: María Anaya is a 22 year old female who is presenting today July 01, 2023 for a Thyroid problem. Referring Physician: Deon Steinberg CNP Reason for visit: Hyperthyroidism X-rays with contrast dyes within last 3 months? no Previous laboratory results: No results found for: VITD25 , TSH , T4 , FTI , FREET4 , FREET3 , MICROSOMAB , THYG , TSI , TBI , T3 , [place] PAST MEDICAL HISTORY Diagnosis Date Hyperthyroidism 07/01/2023 FAMILY HISTORY Problem Relation Age of Onset other (type 2 DM) Mother Hypertension Mother Goiter Mother Hypertension Father other (tachycardia) Sister Thyroid Cancer Maternal Grandmother Diabetes Maternal Grandmother Diabetes Maternal Grandfather Hypertension Paternal Grandfather History reviewed. No pertinent surgical history. HPI Found to be hyperthyroid in May. Had fatigue and tremors before that that had been attributed to anxiety. Review of Systems Thyroid Pain: no Mass Effect: None Energy: reduced Moods: poor Sleep: Terminal insomnia Temp. Intolerance: Heat Intolerance Cardiac: OTHER Tachycardia CV: palpitations racing Gyne: Regular Menses on OCPs Resp: dyspnea GI: No blood in stool, pain with BM, tarry stool, persistent diarrhea or constipation Weight: decreased, 30-40 Lb in past few months Eyes: No Memory: Poor Diaphoresis: Increased. Skin: Negative M/S: negative Neuro: Frequent headaches Social History: Social History Tobacco Use Smoking status: Never Passive exposure: Never Smokeless tobacco: Never Substance Use Topics Alcohol use: Never Drug use: Never Family Hx: Thyroid disease Mother goiter, Mat GM thyroid cancer and Mat Uncle thyroid cancer PAST MEDICAL HISTORY Diagnosis Date Hyperthyroidism 07/01/2023 Physical Exam BP 147/76 Pulse 98 Ht 158.2 cm (5' 2.28 ) Wt 70.3 kg (155 lb) LMP 06/29/2023 BMI 28.09 kg/m? APPEARANCE: Well appearing, alert, in no acute distress. EYES BRAD, extra occular movements normal, 2+ upper lid edema. NECK Supple, no adenopathy; thyroid symmetric, moderately enlarged- 60 grams HEART RRR with normal S1 and S2, 2/6 systolocmurmur, no gallops, no JVD appreciated LUNGS clear to auscultation ABD bowel sounds normoactive, no bruits, soft, non-tender, non-distended, without organomegaly or palpable masses, no tenderness to palpation EXTREMITIES No deformities, No skin discoloration, and No edema NEURO Awake, alert and oriented x 3, Reflexes symmetrical, Faint tremor, Cranial nerves II-XII grossly intact SKIN Skin color, texture, turgor normal, no suspicious rashes or lesions, very mildly moist. Other: Here with her mother. IMPRESSION: Consult Patient is sent at the request of Deon Steinberg CNP for my opinion regarding Hyperthyroidism. My final recommendations will be communicated back to the requesting physician by way of a copy of today's office notes. Impression: Lab from patient phone Jun 05, 2023 TSH <0.01, T3 353 (ref [id number]). Most likely Graves disease. Has mild eye signs despite patient denying eye symptoms. Recommendations: Lab today for free T3 and TSI. Increase methimazole dose to 10 mg bid. Add propranolol-ER- 120 mg for cardiac symptoms. RTN 6 months Lab letter given to the patient to have lab drawn in 3 weeks. Chani Coles MD Endocrinology Staff CC Deon Steinberg CNP [facility] 07-01-2023 History of Presen t illness Narrative María Anaya is a 22 year old female who is presenting today July 01, 2023 for a Thyroid problem. Referring Physician: Deon Steinberg CNP Reason for visit: Hyperthyroidism X-rays with contrast dyes within last 3 months? no Previous laboratory results: No results found for: VITD25 , TSH , T4 , FTI , FREET4 , FREET3 , MICROSOMAB , THYG , TSI , TBI , T3 , [place] PAST MEDICAL HISTORY Diagnosis Date Hyperthyroidism 07/01/2023 FAMILY HISTORY Problem Relation Age of Onset other (type 2 DM) Mother Hypertension Mother Goiter Mother Hypertension Father other (tachycardia) Sister Thyroid Cancer Maternal Grandmother Diabetes Maternal Grandmother Diabetes Maternal Grandfather Hypertension Paternal Grandfather History reviewed. No pertinent surgical history. HPI Found to be hyperthyroid in May. Had fatigue and tremors before that that had been attributed to anxiety. Review of Systems Thyroid Pain: no Mass Effect: None Energy: reduced Moods: poor Sleep: Terminal insomnia Temp. Intolerance: Heat Intolerance Cardiac: OTHER Tachycardia CV: palpitations racing Gyne: Regular Menses on OCPs Resp: dyspnea GI: No blood in stool, pain with BM, tarry stool, persistent diarrhea or constipation Weight: decreased, 30-40 Lb in past few months Eyes: No Memory: Poor Diaphoresis: Increased. Skin: Negative M/S: negative Neuro: Frequent headaches Social History: Social History Tobacco Use Smoking status: Never Passive exposure: Never Smokeless tobacco: Never Substance Use Topics Alcohol use: Never Drug use: Never Family Hx: Thyroid disease Mother goiter, Mat GM thyroid cancer and Mat Uncle thyroid cancer PAST MEDICAL HISTORY Diagnosis Date Hyperthyroidism 07/01/2023 Physical Exam BP 147/76 Pulse 98 Ht 158.2 cm (5' 2.28 ) Wt 70.3 kg (155 lb) LMP 06/29/2023 BMI 28.09 kg/m APPEARANCE: Well appearing, alert, in no acute distress. EYES BRAD, extra occular movements normal, 2+ upper lid edema. NECK Supple, no adenopathy; thyroid symmetric, moderately enlarged- 60 grams HEART RRR with normal S1 and S2, 2/6 systolocmurmur, no gallops, no JVD appreciated LUNGS clear to auscultation ABD bowel sounds normoactive, no bruits, soft, non-tender, non-distended, without organomegaly or palpable masses, no tenderness to palpation EXTREMITIES No deformities, No skin discoloration, and No edema NEURO Awake, alert and oriented x 3, Reflexes symmetrical, Faint tremor, Cranial nerves II-XII grossly intact SKIN Skin color, texture, turgor normal, no suspicious rashes or lesions, very mildly moist. Other: Here with her mother. IMPRESSION: Consult Patient is sent at the request of Deon Steinberg CNP for my opinion regarding Hyperthyroidism. My final recommendations will be communicated back to the requesting physician by way of a copy of today's office notes. Impression: Lab from patient phone Jun 05, 2023 TSH <0.01, T3 353 (ref [id number]). Most likely Graves disease. Has mild eye signs despite patient denying eye symptoms. Recommendations: Lab today for free T3 and TSI. Increase methimazole dose to 10 mg bid. Add propranolol-ER- 120 mg for cardiac symptoms. RTN 6 months Lab letter given to the patient to have lab drawn in 3 weeks. Chani Coles MD Endocrinology Staff CC Deon Steinberg CNP documented in this encounter [facility] 07-01-2023 Instructions Uzair Craven, Ramin - 07/01/2023 9:30 AM EST Thank you for choosing the [facility] Department of Endocrinology, Diabetes and Metabolism. Did you know that you need to call 48 hours in advance of your scheduled visit, if you are unable to make your appointment? The Endocrinology and Metabolism [facility] thanks you for your commitment, because patients not showing to their appointment results in a lost opportunity for patients to receive world class health care at the [facility]. To Cancel an appointment, please choose one of the following: - Call the Appointment Call Center at [phone] - From [facility], Go to Appointments - Cancel Appts If cancelling, consider your need to reschedule to prevent further delays in your care. To Schedule an appointment, please choose one of the following: - Call the Appointment Call Center at [phone] - From [facility], Go to Appointments - Request an Appt documented in this encounter [facility] 07-08-2022 Note PROCEDURE: [employer] VCT 64, 5 mm slice axial images were acquired with coronal reconstruction through the abdomen and pelvis without IV contrast HISTORY: Nausea, right lower quadrant pain, FINDINGS: Small to moderate volume of colon stool normally distributed throughout the abdomen and pelvis. Unremarkable small bowel including terminal ileum. Small air filled structure within the right lower quadrant likely reflects a normal appearing appendix. No significant appendiceal inflammation or abscess formation, bowel inflammation or obstruction. No ascites or pelvic fluid. Unremarkable lung bases, liver, spleen, gallbladder, biliary tree, pancreas, adrenal glands. Unremarkable kidneys, collecting systems and bladder. IMPRESSION 1. No significant bowel inflammation, mass or obstruction. Report reported and signed by Silvino Dillon on 07/09/2022 0731 [facility] Sewing Demonstrator 12-20-2021 Note PROCEDURE: XR CHEST 1 V REASON FOR STUDY/CLINICAL HISTORY: COUGH. COMPARISON STUDY: 12/08/2011 TECHNIQUE: Single view(s) of the chest presented for interpretation. FINDINGS: Mild areas of atelectasis and bronchial wall thickening at the right greater than left infrahilar region and lung bases can be appreciated. Normal cardiomediastinal silhouette. No focal consolidation, edema, or large pleural effusion. No pneumothorax. No acute appearing focal significant bony abnormality. IMPRESSION: Mild bibasilar and infrahilar bronchial thickening as described with subtle adjacent atelectatic change. No consolidation, large pleural effusion, or pneumothorax. Electronically authenticated by: HARSHA HURST Date: 2021-12-20 20:[address] [facility] 11-09-2021 Evaluation note Encounter Date Diagnosis Assessment Notes Oct, Contact with and (suspected) exposure to other viral communicable diseases (ICD-10 - Z20.828) Oct, Viral URI with cough (ICD-10 - J06.9) Advised patient that Influenza A/B, rapid COVID antigen, and Strep test were negative today in office. Discussed diagnosis with patient. Will send in rx of [place] and Flonase to use as directed. Encouraged supportive care, including Tylenol/Motrin as needed for body aches/fever, increase fluids and rest, use of cool mist humidifier. Follow-up with PCP tif symptoms do not improve. Immediate eval if respiratory distress, SOB, difficulty breathing, severe headache and neck pain/stiffness, rash, abdominal pain, N/V, poor PO intake, dehydration (should be urinating every 3-6 hours) lethargy, fevers that do not reduce with antipyretic or if any other concerning symptoms arise. Patient verbalizes understanding and is agreeable to treatment plan. Patient left in stable condition Oct, Other Additional time spent conducting pre-visit phone call, screening for symptoms, instructions on social distancing, application and removal of PPE, and cleaning of examination room, equipment and supplies was preformed. Patient education given for testing methodology and results. Patient care instructions given in writting by [facility] Care At Home document [employer] Other Evaluation note* Diagnosis Hyperthyroidism- Primary Thyrotoxicosis without mention of goiter or other cause, without mention of thyrotoxic crisis or storm documented in this encounter [facility] general Narrative - Reported* Type Description Date Medical History Asthma with status a sthmaticus, unspecified asthma severity Surgical History wisdom teeth Hospitalization History pneumonia [employer] Other Summary Purpose Family History No Family History Records FoundNo Family History Records FoundNo Family History Records FoundNo Family History Records FoundNo Family History Records Found Advance Directives No Advanced Directives Records FoundNo Advanced Directives Records FoundNo Advanced Directives Records FoundNo Advanced Directives Records FoundNo Advanced Directives Records Found Additional Source Comments REASON FOR VISIT (unrecogniz ed section and content) Reason Comments Thyroid Problem Reason Comments Request for Clinical Notes Chart notes R equest Reason Comments Outside Lab Results INFORMATION SOURCE (unrecogn ized section and content) DATE CREATED AUTHOR 07/12/2022 [facility] dical Specialist DATE CREATED AUTHOR AUTHOR'S ORGANIZ ATION 11/28/2022 [facility] DATE CREATED AUTHOR AUTHOR'S ORGANIZ ATION 02/13/2023 [facility] DATE CREATED AUTHOR AUTHOR'S ORGANIZ ATION 08/31/2023 [facility] dical Specialists [facility] DATE CREATED AUTHOR AUTHOR'S ORGANIZ ATION 09/22/2023 [facility] Source Comments (unrecognize d section and content) In the event this informatio n is protected by the Federal Confidentiality of Alcohol and Drug Abuse Patient Records regulations: The Federal rules restrict any use of the information to criminally investigate or prosecute any alcohol or drug abuse patient.[facility] the event this information is protected by the Federal Confidentiality of Alcohol and Drug Abuse Patient Records regulations: The Federal rules restrict any use of the information to criminally investigate or prosecute any alcohol or drug abuse patient.[facility] the event this information is protected by the Federal Confidentiality of Alcohol and Drug Abuse Patient Records regulations: The Federal rules restrict any use of the information to criminally investigate or prosecute any alcohol or drug abuse patient.[facility] the event this information is protected by the Federal Confidentiality of Alcohol and Drug Abuse Patient Records regulations: The Federal rules restrict any use of the information to criminally investigate or prosecute any alcohol or drug abuse patient.[facility] the event this information is protected by the Federal Confidentiality of Alcohol and Drug Abuse Patient Records regulations: The Federal rules restrict any use of the information to criminally investigate or prosecute any alcohol or drug abuse patient.[facility] the event this information is protected by the Federal Confidentiality of Alcohol and Drug Abuse Patient Records regulations: The Federal rules restrict any use of the information to criminally investigate or prosecute any alcohol or drug abuse patient.[facility] Care Teams (unrecognized sec tion and content) Clinical Provider Trainer Relationship Specialty Start Date End Date Evelin Gold MD [address] [place] [address] PCP - General Family Medicine 11/26/22 FOR RECORDS PERTAINING TO PATIENTS WHO ARE OR HAVE BEEN ENROLLED IN A CHEMICAL DEPENDENCY/SUBSTANCEABUSE PROGRAM, SOME INFORMATION MAY BE OMITTED. This clinical summary was aggregated from multiple sources. Caution should be exercised in using it in the provision of clinical care. This summary normalizes information from multiple sources, and as a consequence, information in this document may materially change the coding, format and clinical context of patient data. In addition, data may be omitted in some cases. CLINICAL DECISIONS SHOULD BE BASED ON THE PRIMARY CLINICAL RECORDS. [employer] [facility]. provides no warranty or guarantee of the accuracy or completeness of information in this document.
--- NOTE | 2023-10-10 07:15 | ECG_ITS ---
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
--- NOTE | 2023-10-10 07:15 | XR_ITS ---
The [address] [address] Patient Name: MOHINDER ANAYA MRN: [id number] date: 2000 Sex: F Assigned Patient Location: ER Current Patient Location: ER Accession/Order Number: [id number] Exam Date: 10/10/2023 07:47 Report Date: 10/10/2023 08:02 At the request of: AVINASH CARRANZA Procedure: XR chest 1V EXAMINATION: XR chest 1V HISTORY: chest pain COMPARISON: XR chest 12/20/2021 FINDINGS: LUNGS: No significant pulmonary parenchymal abnormalities. VASCULATURE: No increased pulmonary vasculature. PLEURA: No pneumothorax, effusion, or pleural thickening. CARDIAC: No cardiomegaly or cardiac silhouette abnormality. MEDIASTINUM: No visible mass or adenopathy. BONES: No fracture or visible bone lesion. OTHER: Negative. XR/XR chest 1V IMPRESSION: 1. No acute cardiopulmonary process. Electronically authenticated by: BRIGETTE GARZA Date: 10/10/2023 08:02
--- NOTE | 2023-10-10 07:29 | ED_ITS ---
HPI - General Adult General Chief complaint: Recheck/Abnormal Lab/Rx Stated complaint: SHAKES Time Seen by Provider: 10/10/23 06:52 Source: patient Mode of arrival: walk-in Limitations: no limitations History of Present Illness HPI narrative: Patient was diagnosed with Graves' disease in July and has been on methimazole To control her hyperthyroidism. She states that she had previously been on 10 mg twice daily and had been doing well with the T3 and T4 in a normal range. She said that recently her motor boss decreased her dose from 10 mg twice daily to 5 mg daily because the patient's TSH had changed. About a week ago the patient developed intermittent palpitations and shakiness as well as some flushing and feeling hot . She has no chest pain now but admits to feeling more shaky over the last couple of days. She does not take in much caffeine. She does not take any additional stimulants. Related Data Home Medications ?Medication ?Instructions ?Recorded ?Confirmed hydroxyzine HCl 25 mg tablet 25 mg PO Q8H PRN anxiety 06/27/23 10/10/23 methimazole 5 mg tablet 5 mg PO DAILY 06/27/23 10/10/23 norgestimate 0.25 mg-ethinyl tab 10/10/23 estradiol 35 mcg tablet propranolol 60 mg capsule,24 mg PO 10/10/23 hr,extended release Allergies Allergy/AdvReac Type Severity Reaction Status Date / Time No Known Drug Allergies Allergy Verified 10/10/23 06:35 [facility] Medical History (Updated 10/10/23 @ 09:02 by Campbell Cook) Graves disease ?E05.00 - Thyrotoxicosis with diffuse goiter without thyrotoxic crisis or storm (ICD-10) Social History Smoking status: Never smoker Exam Narrative Exam Narrative: Nurses notes and vital signs reviewed and patient is not hypoxic. Afebrile General: Well-appearing and in no apparent distress. Skin: Warm, dry, no pallor noted. No rash. Eye: Pupils are equal, round and EOMI. No scleral icterus. Ears, Nose, Mouth, and Throat: Oral mucosa is moist Cardiovascular: Regular Rate and Rhythm without murmur, gallop or rub. Respiratory: No accessory muscle use or respiratory distress. Lungs are clear to auscultation, no wheezing, rales or rhonchi Musculoskeletal: normal ROM GI: Abdomen is soft, non-distended. Normal bowel sounds. No tenderness to palpation. No rebound, guarding, or rigidity noted. Neurological: A&O x4. No cranial nerve dysfunction observed. No truncal ataxia. Moves all extremities. Sensation intact. Psychiatric: Cooperative and interactive. Normal mood and affect. Constitutional Vital Signs, click to edit/add: Last Vital Signs Temp 97.8 F 10/10/23 06:35 Pulse 68 10/10/23 06:35 Resp 18 10/10/23 06:35 BP 118/85 10/10/23 06:35 Pulse Ox 97 10/10/23 06:35 O2 Del Method Room Air 10/10/23 06:35 Course Vital Signs Vital signs: Vital Signs Temperature 97.8 F 10/10/23 06:35 Pulse Rate 68 10/10/23 06:35 Respiratory Rate 18 10/10/23 06:35 Blood Pressure 118/85 10/10/23 06:35 Pulse Oximetry 97 10/10/23 06:35 Oxygen Delivery Method Room Air 10/10/23 06:35 Temperature 97.8 F 10/10/23 06:35 Pulse Rate 68 10/10/23 06:35 Respiratory Rate 18 10/10/23 06:35 Blood Pressure 118/85 10/10/23 06:35 Pulse Oximetry 97 10/10/23 06:35 Oxygen Delivery Method Room Air 10/10/23 06:35 Medical Decision Making MDM Narrative Medical decision making narrative: 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 Blood drawn and sent for evaluation, Including T3 and T4. The patient received a liter of normal saline IV fluid. TSH elevated at 41. T4 low at 0.64. T3 normal. Patient will send results to her motor boss this morning and see if her med dose needs adjustment. ED return if she worsens but endocrinology follow up was recommended. Lab Data Lab results reviewed: Yes I reviewed the patient's lab results Labs: Lab Results 10/10/23 Range/Units 07:39 WBC 9.5 (4.0-11.0) 10^3/uL RBC 4.66 (4.20-5.40) 10^6/uL Hgb 13.8 (12.0-16.0) g/dL Hct 42.2 (36.0-48.0) % MCV 90.6 (81.0-99.0) fL MCH 29.6 (26.7-34.0) pg MCHC 32.7 (29.9-35.2) g/dL RDW 14.3 (11.0-15.0) % Plt Count 254 (150-450) 10^3/uL MPV 10.9 (9.5-13.5) fL Neut % (Auto) 64.2 (43.0-75.0) % Lymph % (Auto) 28.0 (20.5-60.0) % Franklin % (Auto) 4.5 (1.7-12.0) % Eos % (Auto) 2.5 (0.9-7.0) % Baso % (Auto) 0.6 (0.2-2.0) % Neut # (Auto) 6.1 (1.4-6.5) 10^3/uL Lymph # (Auto) 2.7 (1.2-3.8) 10^3/uL Franklin # (Auto) 0.4 (0.3-0.8) 10^3/uL Eos # (Auto) 0.2 (0.0-0.7) 10^3/uL Baso # (Auto) 0.1 (0.0-0.1) 10^3/uL Abs Immat Gran (auto) 0.02 (0.00-0.03) 10^3/uL Imm/Tot Granulo (auto) 0.2 (0.0-0.5) % Sodium 140 (136-145) mmol/L Potassium 3.6 (3.5-5.1) mmol/L Chloride 102 (98-107) mmol/L Carbon Dioxide 26.1 (21.0-32.0) mmol/L Anion Gap 15.5 BUN 13.0 (7.0-18.0) mg/dL Creatinine 0.91 (0.55-1.02) mg/dL Est GFR ( Amer) >60 (>=60) Est GFR (Non-Af Amer) >60 (>=60) BUN/Creatinine Ratio 14.3 Glucose 95 (74-106) mg/dL Calcium 8.7 (8.5-10.1) mg/dL TSH 41.066 H (0.358-3.740) uIU/mL Free T4 0.64 L (0.76-1.46) ng/dL Free T3 2.92 (2.18-3.98) pg/mL ECG Data Attestation: I personally reviewed and interpreted this ECG as follows: Interpretation: EKG interpretation: Emergency Department physician interpretation. Normal sinus rhythm at 66bpm. Low QRS voltage in chest leads. T wave inversion in lead V2. Normal axis, normal intervals and no ST segment elevation or depression. Discharge Plan Discharge Stand Alone Forms: Portal Instructions Chief Complaint: Recheck/Abnormal Lab/Rx Clinical Impression: Graves' disease Patient Disposition: Home, Self-Care Time of Disposition Decision: 09:02 Prescriptions / Home Meds: No Action norgestimate-ethinyl estradiol 0.25-35 mg-mcg tablet propranolol 60 mg capsule,extended release 24 hr PO hydroxyzine HCl 25 mg tablet 25 mg PO Q8H PRN (Reason: anxiety) methimazole 5 mg tablet 5 mg PO DAILY Print Language: Italian Instructions: Graves Disease (ED) Referrals: DEON WOODALL [Primary Care Provider] - 1 week
[2023-10-10] MEDS: 0.9 % SODIUM CHLORIDE 1,000 ML 999 ML IV (07:38)
[2023-10-10 08:08] LABS: Basophils Absolute Auto 0.1 10^3/uL (0.0-0.1); Basophils Percent Auto 0.6 % (0.2-2.0); Eosinophils Absolute Auto 0.2 10^3/uL (0.0-0.7); Eosinophils Percent Auto 2.5 % (0.9-7.0); Hematocrit 42.2 % (36.0-48.0); Hemoglobin 13.8 g/dL (12.0-16.0); Immature Granulocytes Abs Auto 0.02 10^3/uL (0.00-0.03); Immature Granulocytes Pct Auto 0.2 % (0.0-0.5); Lymphocytes Absolute Auto 2.7 10^3/uL (1.2-3.8); Mean Corpuscular HGB Conc 32.7 g/dL (29.9-35.2); Mean Corpuscular Hemoglobin 29.6 pg (26.7-34.0); Mean Corpuscular Volume 90.6 fL (81.0-99.0); Mean Platelet Volume 10.9 fL (9.5-13.5); Monocytes Absolute Auto 0.4 10^3/uL (0.3-0.8); Monocytes Percent Auto 4.5 % (1.7-12.0); Neutrophils Absolute Auto 6.1 10^3/uL (1.4-6.5); Neutrophils Percent Auto 64.2 % (43.0-75.0); Platelet Count 254 10^3/uL (150-450); Red Blood Count 4.66 10^6/uL (4.20-5.40); Red Cell Distribution Width 14.3 % (11.0-15.0); White Blood Count 9.5 10^3/uL (4.0-11.0)
[2023-10-10 08:09] LABS: Anion Gap 15.5; BUN Creatinine Ratio 14.3; Calcium 8.7 mg/dL (8.5-10.1); Carbon Dioxide 26.1 mmol/L (21.0-32.0); Chloride 102 mmol/L (98-107); Estimated GFR (African America >60 (>=60); Estimated GFR (Non-African Ame >60 (>=60); Glucose 95 mg/dL (74-106); Potassium 3.6 mmol/L (3.5-5.1); Sodium 140 mmol/L (136-145)
[2023-10-10 08:21] LABS: Thyroid Stimulating Hormone 41.066 uIU/mL (0.358-3.740)
[2023-10-10 08:24] LABS: Free T3 2.92 pg/mL (2.18-3.98)
[2023-10-10 08:58] LABS: Free T4 0.64 ng/dL (0.76-1.46)
== END 2023-10-10 09:09 | disposition home or self-care (01) ==
PROVIDERS: Emergency Provider Emergency Medicine; PCP Nurse Practitioner Family
DX: E05.00 Thyrotoxicosis with diffuse goiter without thyrotoxic crisis or storm (principal); Z79.899 Other long term (current) drug therapy
CPT/HCPCS: 36415; 71045; 80048; 84439; 84443; 84481; 85025; 93005; 99285

== ENCOUNTER 2024-02-24 09:28 | Emergency (ER) | payer BC, OTHER, SELFPAY ==
[2024-02-24 09:36] VITALS: BP 119/87; PULSE 78; TEMP 37; O2SAT 100; BMI 30.5
--- OUTSIDE RECORDS SUMMARY | 2024-02-24 10:19 | XMS_ITS | CCD ---
Author Organization [facility] Care Team Providers Care Repairer Wood Furniture Name Role Phone Tari Carmona Unavailable EMERSON Farmer, YULIANA Admitting Unavailable EMERSON Farmer, YULIANA Attending Unavailable GUERO ., BÁRBARA HARKINS Consulting UnavailDEON Redding Primary Care Unavailable HARSHA HURST Consulting Unavailable DILLON ., DR DA SILVA Admitting Unavailable HAY ., DR DA SILVA Consulting Unavailable DILLON ., DR DA SILVA Attending Unavailable IDRIS, DEON Primary Care Unavailable Idris, Deon Primary Care Unavailable Blayne Do Attending Unavailable Blayne Do Admitting Unavailable Unavailable Primary Care Provider Kristen Gold MD, Evelin Primary Care Provider DEON STEINBERG Attending Unavailab DEON [place] Referring Unavailab AURORA Ruiz Attending Unavailab le Unavailable Primary Care Provider UnavailCHANI Malagon Attending Unavailable CHANI COLES Referring Unavailable DEON STEINBERG Referring Unavailab CHANI Tariq Attending Unavailable Medications Current Medications Medication Drug Class(es) Dates Sig (Normalized) Sig (Original) dextromethorphan hydrobromide 1.5 mg/ml / pyrilamine maleate 1.5 mg/ml oral solution (1 source) Uncompetitive G-msdfoe-D-asparta te Receptor Antagonist, Sigma-1 Agonist Start: 11-09-2021 take 10 mL by mouth every eight hours [facility] DM 7.5-7.5 MG/5ML 10 mL Orally every 8 hours for 5 days Oct, Active Ethinyl Estradiol / norelgestromin (1 source) Progestin, Estrogen Xulane Active Ethinyl Estradiol / norgestimate (15 sources) Progestin, Estrogen Start: 06-26-2023 norgestimate-ethin yl estradiol (Ortho-Cyclen) 0.25-35 MG-MCG tablet Indications: Encounter for surveillance of contraceptive pills take 1 tablet by mouth every morning 84 tablet 0 06/26/2023 Active Start: 06-26-2023 take 1 tablet by reina th once daily in the morning norgestimate 0.25 mg-ethinyl estradiol 35 mcg 0.25-35 mg-mcg per tablet Take 1 tablet by mouth every morning. 0 06/26/2023 Active Comment on above: Take 1 tablet by reina th every morning. fluticasone propionate 0.05 mg/actuat metered dose nasal spray (1 source) Corticosteroid Start: 022 take 1 spray(s) nasal route once daily Flonase Allergy Relief 50 MCG/ACT 1 spray in each nostril Nasally Once a day for 14 day(s) Oct, Active hydrOXYzine hydrochloride 25 mg oral tablet (15 sources) Antihistamine Start: 023 hydrOXYzine HCl (ATARAX) 25 mg tablet Take 25 mg by mouth as needed. 0 06/17/2023 Active Comment on above: Take 25 mg by mouth as needed. methIMAzole 10 mg oral tablet (20 sources) Thyroid Hormone Synthesis Inhibitor Start: 024 take 1 tablet by mouth twice daily [...] by reina th two times a day. 24 hr propranolol hydrochloride 60 mg extended release oral capsule (15 sources) beta-Adrenergic Coy Start: 08-20-19 24 End: 12-30-19 24 take 1 capsule by mouth once daily propranolol ER (INDERAL LA) 60 mg 24 hr capsule Indications: Hyperthyroidism Take 1 capsule by mouth once daily. 90 capsule 3 12/30/2023 Active Start: 07-01-2023 take 1 capsule by mo uth once daily propranolol ER (INDERAL LA) 120 mg 24 hr capsule Indications: Hyperthyroidism Take 1 capsule by mouth once daily. 30 capsule 3 07/01/2023 Active Comment on above: Take 1 capsule by mo uth once daily. Completed/Discontinued Medications Medication Drug Class(es) Dates Sig (Normalized) Sig (Original) [id number] 200 actuat albuterol 0.09 mg/actuat metered dose inhaler (1 source) beta2-Adrenergic Agonist Start: 07-24-2021 take 2 puff(s) by inhalation four times daily as needed Albuterol Sulfate HFA 108 (90 Base) MCG/ACT 2 puffs Inhalation qid prn Jul, Not-Taking predniSONE 20 mg oral tablet (1 source) Start: 07-24-2021 take 1 tablet by mouth every twelve hours predniSONE 20 MG 1 tablet Orally bid for 5 day(s) Jul, Not-Taking Problems Active Problems Problem Classification Problem Date Documented Da te Episodic/Chronic Acute and chronic tonsillitis (15 sources) Chronic adenotonsillitis; Translations: [Chronic tonsillitis and adenoiditis] Onset: 01-06-2023 07-01-2023 Chronic Anxiety disorders (20 sources) Anxiety; Translations: [Anxiety disorder, unspecified] Onset: 01-06-2023 07-01-2023 Chronic Heart valve disorders (15 sources) Mitral valve regurgitation; Translations: [Nonrheumatic mitral (valve) insufficiency] Onset: 01-06-2023 07-01-2023 Chronic Mood disorders (15 sources) Moderate major depression, single episode; Translations: [Major depressive disorder, single episode, moderate] Onset: 01-06-2023 07-01-2023 Chronic Nausea and vomiting (5 sources) Nausea with vomiting, unspecified; Translations: [NAUSEA WITH VOMITING UNSPECIFIED] Onset: 12-24-2021 Episodic Nutritional deficiencies (1 source) Vitamin D deficiency; Translations: [Vitamin D deficiency, unspecified] 12-30-2023 Chronic Other nutritional; endocrine; and metabolic disorders (1 source) Obese class I; Translations: [Obesity, unspecified] 12-30-2023 Chronic Thyroid disorders (20 sources) Hyperthyroidism; Translations: [Thyrotoxicosis, unspecified without thyrotoxic crisis or storm] Onset: 01-06-2023 07-01-2023 Chronic Unclassified (1 source) CONTACT W/AND (SUSP) EXPOS COVID-19; Translations: [CONTACT W/AND (SUSP) EXPOS COVID-19] Onset: 12-24-2021 Unclassified (1 source) Contusion of right forearm, initial encounter; Translations: [Contusion of right forearm, initial encounter] Onset: 01-30-2023 Past or Other Problems Problem Classification Problem Date Documented Da te Episodic/Chronic Cardiac dysrhythmias (1 source) Palpitations; Translations: [Palpitations] Onset: 06-27-2023 12-30-2023 Episodic Immunizations and screening for infectious disease (1 source) Contact with and (suspected) exposure to other viral communicable diseases Onset: 11-09-2021 Resolved: 11-09-2021 Episodic Menstrual disorders (15 sources) Disorder of menstruation; Translations: [Irregular menstruation, unspecified] Onset: 01-06-2023 Resolved: 12-30-2023 07-01-2023 Chronic Other upper respiratory infections (5 sources) Acute upper respiratory infection, unspecified; Translations: [ACUTE UP RESPIRATORY INFECTION UNS] Onset: 11-09-2021 Resolved: 11-09-2021 Episodic Viral infection (15 sources) Verruca vulgaris; Translations: [Other viral warts] Onset: 05-29-2023 Resolved: 12-30-2023 07-01-2023 Episodic Results Test Name Value Interpretation Reference Range Facility [facility] 12-30-2023 CNOV Office Visit (ENDOMN) MARÍA ANAYA ([id number]) 2 F Date Time Provider Department 12/30/23 9:40 AM CHANI COLES During your visit today, we recorded the following information about you: Pulse Blood pressure Weight 70/minute 127/64 75.8 kg Ramin DunneCHARITY 12/30/2023 9:13 AM Signed Thank you for choosing the [facility] Department of Endocrinology, Diabetes and Metabolism. Did you know that you need to call 48 hours in advance of your scheduled visit, if you are unable to make your appointment? The [facility]inology [facility] thanks you for your commitment, because patients not showing to their appointment results in a lost opportunity for patients to receive [facility] health care at the [facility]. To Cancel an appointment, please choose one of the following: - Call the Appointment Call Center at [phone] - From [facility], Go to Appointments - Cancel Appts If cancelling, consider your need to reschedule to prevent further delays in your care. To Schedule an appointment, please choose one of the following: - Call the Appointment Call Center at [phone] - From [facility], Go to Appointments - Request an Appt Chani Coles MD 12/30/2023 10:25 AM Signed Answers submitted by the patient for this visit: Core Review of Systems (Submitted on 12/24/2023) Fever : No Night sweats: Yes Recent unintentional weight change: Yes Nasal Congestion: No Hearing Loss: No Vision Disturbance: No A cough: No Difficulty Breathing?: No Chest pain: No Irregular heartbeat: No Leg Swelling: No Nausea: No Diarrhea: No Black tarry stools: No Difficulty Urinating?: No Awaken at Night More Than Once to Urinate?: No Joint pain or stiffness: No Muscle aches: No Leg or Foot Discomfort at Night?: No A rash: No Dizziness: Yes Headaches: Yes Memory Loss: No Seizures: No María Anaya is a 23 year old female who is presenting today December 30, 2023 for a Thyroid problem. Social History Tobacco Use Smoking status: Never Passive exposure: Never Smokeless tobacco: Never Substance Use Topics Alcohol use: Never Drug use: Never Reason for visit: Grave's Disease Previous laboratory results: TSH Date Value 11/10/2023 2.46 IU/ml 10/02/2023 16.550 mIU/L 10/02/2023 16.55 IU/ml 07/23/2023 <0.01 IU/ml Free T4 Date Value 12/10/2023 1.1 ng/dL 11/10/2023 1.2 ng/dL 10/02/2023 0.7 ng/ml 07/23/2023 1.2 FREE T4 (ng/dL) Date Value 10/02/2023 0.7 Free T3 Date Value 11/10/2023 3.1 PG/Ml 10/02/2023 2.7 pg/ml 07/23/2023 2.9 pg/mL 07/01/2023 11.2 pg/mL TSI (IU/L) Date Value 07/01/2023 20.20 Subjective: Weight: increased, 12 Lb in past 6 months Energy: reduced but improving Moods: fair some irritability Sleep: Normal sleep pattern; Temp. Intolerance: Heat Intolerance Diaphoresis: Increased; Memory: Good improving Thyroid Pain: no; Mass Effect: None CV: palpitations racing 90s random or hs Resp: No cough, hemoptysis, asthma, recent chest infection, wheezing; GI: No blood in stool, pain with BM, tarry stool, persistent diarrhea or constipation; REPRODUCTIVE: cycle 28 days on OCPs Eyes: Dryness, Itching, tearing, and pressure; Skin: Very dry. Notes hair loss. M/S: negative ; Neuro: frequent headaches every other day Physical Exam BP 127/64 Pulse 70 Wt 75.8 kg (167 lb) LMP 06/29/2023 BMI 30.27 kg/m? APPEARANCE: Well appearing, alert, in no acute distress, mildly Obese EYES BRAD, extra occular movements normal NECK Supple, no adenopathy; thyroid moderately enlarged HEART RRR with normal S1 and S2, no murmurs, no gallops, no JVD appreciated LUNGS clear to auscultation ABD central adiposity EXTREMITIES No deformities, No skin discoloration, and No edema NEURO Awake, alert and oriented x 3, Reflexes symmetrical and Cranial nerves II-XII grossly intact, No longer has tremor. SKIN Skin color, texture, turgor normal, no suspicious rashes or lesions Impression: This 23 yo is seen in follow-up for hyperthyroidism due to Graves disease. She had lab last month that was euthyroid on methimazole 5 mg daily. She remains on propranolol 60 ER mg. She notes hair loss and has had vitamin D deficiency. Recommendations: Continue methimazole 5 mg daily and propranolol ER 60 mg daily.. Begin Vitamin D 2000 units daily. Repeat lab in 3 months- Lab letter given for outside lab. Can take biotin but hold 3 days prior to lab draw. RTN 6 months. Chani Coles MD Endocrinology Staff Allergies As of Date: 12/30/2023 (No Known Allergies) Date Reviewed: 12/30/2023 Reviewed by: Ramin Dunne MA - Fully Assessed Reason for Visit: Thyroid Problem [110] Cmt: F/u Primary Visit Diagnosis:Hyperthyro idism [E05.90] Other Visit Diagnoses:Class 1 obesity [E66.9] Vitamin D deficiency [E55.9] Order(s):propra (more content not included)... Normal [facility] CNPNon 12-05-2023 CNPN Telephone (ENDOMN) MARÍA ANAYA ([id number]) 2 F Date Time Provider Department 12/05/23 CHANI COLES During your visit today, we recorded the following information about you: Hayes HoAkshat Kathleen 12/05/2023 2:27 PM Signed Mailed lab letter to patients home address on file. Akshat Koo Cut Off Worker II [facility]-F20 Allergies As of Date: 12/05/2023 (No Known Allergies) Date Reviewed: 07/01/2023 Reviewed by: Ramin Dunne MA - Fully Assessed Reason for Visit: lab letter [Other] Prescriptions as of 12/05/2023 - propranolol ER (INDERAL LA) 60 mg [...] every morning. Problem List As Of Date 12/05/2023 Noted Resolved Anxiety [F41.9] 01/06/2023 Chronic adenotonsillitis [J35.03] 01/06/2023 Common wart [B07.8] 05/29/2023 Enlarged thyroid [E04.9] 01/06/2023 Major depressive disorder, single episode, mode*01/06/2023 Menstrual disorder [N92.6] 01/06/2023 Panic attacks [F41.0] 01/06/2023 Trace mitral regurgitation by prior echocardiog*01/07/20 Hyperthyroidism [E05.90] 07/01/2023 Encounter Status:Closed by HAYES HO AKSHAT Wang on 12/05/23 Normal [facility] TSH BLOOD (AK,AV,EU,FV,HL,NAREN ,MM,SP)on 11-11-2023 Free T3 3.1 PG/Ml 2.3 - 4.2 PG/Ml [facility] Free T4 [Mass/Vol] 1.2 ng/dL 0.8 - 1.8 ng/dL [facility] TSH Qn 2.46 m[IU]/L [facility] CNPNon 10-09-2023 CNPN Telephone (ENDOMN) MARÍA ANAYA ([id number]) 2 F Date Time Provider Department 10/09/23 CHANI COLES During your visit today, we recorded the following information about you: Theresa Trejo 10/09/2023 6:47 AM Signed Updated labs from (location) [facility]. Date labs collected 10/02/23. Date scanned in chart 10/09/23. Theresa Dsouza Cut Off Worker [facility], F20 Allergies As of Date: 10/09/2023 (No Known Allergies) Date Reviewed: 07/01/2023 Reviewed by: Ramin Dunne MA - Fully Assessed Reason for Visit: Outside Lab Results [753] Order(s):TSH BLOOD (AK,AV,EU,FV,HL,NAREN,M M,SP) [[id number]] Order #: [id number] Prescriptions as of 10/09/2023 - methIMAzole (TAPAZOLE) 10 mg tablet Take 1 tablet by mouth two times a day. - propranolol ER (INDERAL LA) 60 mg 24 hr capsule Take 1 capsule by mouth once daily. - hydrOXYzine HCl (ATARAX) 25 mg tablet Take 25 mg by mouth as needed. - methIMAzole (TAPAZOLE) 5 mg tablet Take 5 mg by mouth every morning. - norgestimate 0.25 mg-ethinyl estradiol 35 mcg 0.25-35 mg-mcg per tablet Take 1 tablet by mouth every morning. Problem List As Of Date 10/09/2023 Noted Resolved Anxiety [F41.9] 01/06/2023 Chronic adenotonsillitis [J35.03] 01/06/2023 Common wart [B07.8] 05/29/2023 Enlarged thyroid [E04.9] 01/06/2023 Major depressive disorder, single episode, mode*01/06/2023 Menstrual disorder [N92.6] 01/06/2023 Panic attacks [F41.0] 01/06/2023 Trace mitral regurgitation by prior echocardiog*01/07/20 23 Hyperthyroidism [E05.90] 07/01/2023 Encounter Status:Closed by CHANI COLES on 10/09/23 Normal [facility] Laboratory - Chemistry and C hemistry - challengeon 10-03-2023 Free T3 [Mass/Vol] 2.7 pg/mL 2.3 - 4.2 pg/ml [facility] TSH (OUTSIDE )on Free T4 [Mass/Vol] 0.7 ng/ml Abnormal 0.8 - 1.8 0 ng/ml [facility] TSH 16.55 IU/ml Abnormal 0.2 - 5.6 IU/ml [facility] TSH BLOOD (AK,AV,EU,FV,HL,NAREN ,MM,SP)on 10-03-2023 Free T4 [Mass/Vol] 0.7 ng/dL Abnormal 0.83 - 1. 60 ng/dL [facility] TSH Qn 16.550 m[IU]/L Abnormal 0.270 - 4.200 mIU/L [facility] XR ABDOMEN 2 VIEWon 08-26-19 XR ABDOMEN 2 VIEW CLINICAL HISTORY: lower back pain, lower abdominal pain COMPARISON: FINDINGS: The bowel gas pattern is unremarkable. There are no dilated loops of bowel. There are no acute osseous changes. IMPRESSION: There are no acute intra-abdominal changes. ELECTRONICALLY SIGNED BY: Dennis Johnston MD Normal Not Available CNPNon 07-31-2023 CNPN Telephone (ENDOMN) MARÍA ANAYA ([id number]) 2 F Date Time Provider Department 07/31/23 CHANI COLES ENDOMN During your visit today, we recorded the following information about you: Hayes Nurseryman AssistantAkshat Kathleen 07/31/2023 10:52 AM Signed Updated labs from (location) [facility] Date labs collected 07/23/23 Date scanned in chart 07/31/23 Akshat Koo Cut Off Worker II [facility] Allergies As of Date: 07/31/2023 (No Known Allergies) Date Reviewed: 07/01/2023 Reviewed by: Ramin Dunne Ma - Fully Assessed Reason for Visit: Outside Lab Results [753] Order(s):TSH AND FT4 PANEL [[id number]] Order #: [id number] Prescriptions as of 07/31/2023 - propranolol ER [...] Encounter Status:Closed by CHANI COLES on 07/31/23 [facility] Telephone (ENDOMN) MARÍA ANAYA ([id number]) 2 F Date Time Provider Department 07/28/23 CHANI COLES ENDOMN During your visit today, [...] be reached via or number on file. Andres Bravo Cut Off Worker II [facility] F-20 Allergies As of Date: 07/28/2023 (No [...] Status:Closed by ANDRES ALEXANDER on 07/28/23 Normal [facility] CNCOon 07-16-2023 CNCO Letter Text [facility] CNPNon 07-16-2023 CNPN Telephone (ENDOMN) MARÍA ANAYA ([id number]) 2 F Date Time Provider Department 07/16/23 CHANI COLES During your visit today, we recorded the following information about you: Ania Murray 07/16/2023 10:15 AM Signed Patient requesting to go over 07/01 thyroid tests. Please call and advise at [phone] Ania Murray Cut Off Worker II Diabetes [facility] Endocrinology X-20 Karyn Schuster 07/16/2023 11:48 AM Signed Received document and laboratory results from provider to send to the patient via mail. Mailed to address we have on file. KEILY MCLAUGHLIN Cut Off Worker II Endocrinology AND Metabolism [facility] X-20 Allergies As of Date: 07/16/2023 (No [...] 23 Hyperthyroidism [E05.90] 07/01/2023 Encounter Status:Closed by KARYN SCHUSTER on 07/16/23 Normal [facility] CNCOon 07-01-2023 CNCO Letter Text Letter Text [facility] CNOVon 07-01-2023 CNOV Office Visit (ENDOMN) MARÍA ANAYA ([id number]) 2 F Date Time Provider Department 07/01/23 10:10 AM CHANI COLES During your visit today, we recorded the following information about you: Pulse Blood pressure Weight Height 98/minute 147/76 70.3 kg 1.582 m Last Period 06/29/23 Ramin Dunne Ma 07/01/2023 9:30 AM Signed Thank you for choosing the [facility] Department of Endocrinology, Diabetes and Metabolism. Did you know that you need to call 48 hours in advance of your scheduled visit, if you are unable to make your appointment? The End[facility]inology [facility] Metabolism [facility] thanks you for your commitment, because patients not showing to their appointment results in a lost opportunity for patients to receive [facility] health care at the [facility]. To Cancel an appointment, please choose one of the following: - Call the Appointment Call Center at [phone] - From [facility], Go to Appointments - Cancel Appts If cancelling, consider your need to reschedule to prevent further delays in your care. To Schedule an appointment, please choose one of the following: - Call the Appointment Call Center at [phone] - From [facility], Go to Appointments - Request an Appt Chani oCles MD 07/01/2023 12:35 PM Signed María Anaya [...] 05, 2023 TSH <0.01, T3 353 (ref [id number]). Most likely Graves disease. Has mild eye [...] Deon Steinberg CNP Referring Provider: DEON STEINBERG [[id number]] Allergies As of Date: 07/01/2023 (No Known Allergies) Date Reviewed: 07/01/2023 Reviewed by: Asad Dunne Ma (more content not included)... Normal [facility] 07-01-2023 CNPN Telephone (ENDOMN) MARÍA ANAYA ([id number]) 2 F Date Time Provider Department 07/01/23 CHANI COLES ENDOMN During your visit today, we recorded the following information about you: Karyn Schuster 07/01/2023 12:48 PM Signed Patient's external provider requested patient's most recent endocrinology office notes be faxed to them. Faxed office notes from visit date 07/01/2023 to DEON STEINBERG [facility] [phone] Transmitted successfully. KEILY MCLAUGHLIN Cut Off Worker II Endocrinology AND Metabolism [facility] X-20 Allergies As of Date: 07/01/2023 (No [...] echocardiog*01/07/20 Hyperthyroidism [E05.90] 07/01/2023 Encounter Status:Closed by KAYRN SCHUSTER on 07/01/23 Normal [facility] T3 FREE BLDon 07-01-2023 Free T3 [Mass/Vol] 11.2 pg/mL High 2.3 - 4.1 pg/mL [facility] T3Free SerPl-mCncon 07-01-20 Free T3 [Mass/Vol] 11.2 pg/mL High 2.3-4.1 [facility] Comment on above: Order Comment: Speci men Type: BLOOD SPECIMENOrdering Facility: [facility] Address: [address] [place] [address] Performed By: #### 3 [id number] ####[facility] LABCLIA [id number] [place] [address] [place] THYROID STIMULATING IMMUNOGL OBULIN BLOODon 07-01-2023 Thyroid stimulating immunoglobulins actual/normal (S) [Relative mass conc] 20.20 IU/L High <0.55 IU/L [facility] TSI Qualitative Positive Abnormal Negative [facility] Thyroid stimulating immunoglobulins actual/normal (S) [Relative mass conc] 20.20 IU/L High <0.55 [facility] Comment on above: Order Comment: Speci men Type: BLOOD SPECIMENOrdering Facility: [facility] Address: [address] [place] [address] Result Comment: Thyr oid Stimulating Immunoglobulin test is used as an aid in diagnosis of autoimmune hyperthyroidism especially in patients with Grave's orbitopathy and dermopathy. Low positive TSH receptor stimulating antibody levels may occasionally be found in patients with autoimmune hypothyroidism. Clinical correlation is required. Performed By: #### T SIGIM ####[facility] LABCLIA [id number] [place] [address] [place] TSI QUALITATIVE Positive Abnormal Negative [facility] Comment on above: Order Comment: Speci men Type: BLOOD SPECIMENOrdering Facility: [facility] Address: [address] [place] [address] Performed By: #### T SIGIM ####[facility] LABCLIA [id number] [place] [address] [place] XR elbow RT min 3V*on 2022 XR elbow RT min 3V* [facility] [place] [address] [place] [address] XRay Report Signed Patient: María Anaya MR#: [id number] : 2000 Acct:[id number] Age/Sex: 22 / F ADM Date: 01/30/23 Loc: ER Room: Type: [facility] ER Attending Dr: Copies to: Blayne Do [...] Bruce Arroyo M.D.01/30/2023 8:48 PM Dictation Location: [place] [address] Transcribed By: SHREYA 01/30/232047 Dictated By: Bruce Arroyo II, MD 01/30/232044 Signed By: 01/30/232047 Normal [facility] AMYLASEon 11-23-2022 Amylase [Catalytic activity/Vol] 53 U/L Normal 25-115 [facility] Comment on above: Performed By: #### A MY, LIPA, CMP #### [facility] [address] [place] [address] [address] Baron Chavira CBC AUTO DIFFon 11-23-2022 BASO # 0.0 103/ul Normal 0.0-0.1 [facility] Comment on above: Performed By: #### C BC #### [facility] [address] [place] [address] Dr. Baron Chavira Basophils/100 WBC (Bld) 0.3 % Normal 0.2-2.0 [facility] Comment on above: Performed By: #### C BC #### [facility] [address] [place] [address] Dr. Baron Chavira EO # 0.1 103/ul Normal 0.0-0.7 [facility] Comment on above: Performed By: #### C BC #### [facility] [address] [place] [address] Dr. Baron Chavira Eosinophils/100 WBC (Bld) 1.4 % Normal 0.9-7.0 [facility] Comment on above: Performed By: #### C BC #### [facility] [address] [place] [address] Dr. Baron Chavira Erythrocyte distribution width (RBC) [Ratio] 12.7 % Normal 11.0-15.0 [facility] Comment on above: Performed By: #### C BC #### [facility] [address] [place] [address] Dr. Baron Chavira Hematocrit (Bld) [Volume fraction] 43.1 % Normal 36.0-48.0 [facility] Comment on above: Performed By: #### C BC #### [facility] [address] [place] [address] Dr. Baron Chavira Hemoglobin (Bld) [Mass/Vol] 14.3 g/dL Normal 12.0-16.0 [facility] Comment on above: Performed By: #### C BC #### [facility] [address] [place] [address] Dr. Baron Chavira IG # 0.02 10e3/ul Normal 0.00-0.03 [facility] Comment on above: Performed By: #### C BC #### [facility] [address] [place] [address] Dr. Baron Chavira IG % 0.2 % Normal 0.0-0.5 [facility] Comment on above: Performed By: #### C BC #### [facility] [address] [place] [address] Dr. Baron Chavira LYMPH # 2.3 103/ul Normal 1.2-3.8 [facility] Comment on above: Performed By: #### C BC #### [facility] [address] [place] [address] Dr. Baron Chavira Lymphocytes/100 WBC (Bld) 23.7 % Normal 20.5-60.0 [facility] Comment on above: Performed By: #### C BC #### [facility] [address] [place] [address] Dr. Baron Chavira MANUAL DIFF REQ NO Normal [facility] Comment on above: Performed By: #### C BC #### [facility] [address] [place] [address] Dr. Baron Chavira MCH (RBC) [Entitic mass] 28.4 pg Normal 26.7-34.0 [facility] Comment on above: Performed By: #### C BC #### [facility] [address] [place] [address] Dr. Baron Chavira MCHC (RBC) [Mass/Vol] 33.2 g/dL Normal 29.9-35.2 [facility] Comment on above: Performed By: #### C BC #### [facility] [address] [place] [address] Dr. Baron Chavira MCV (RBC) [Entitic vol] 85.7 fL Normal 81.0-99.0 [facility] Comment on above: Performed By: #### C BC #### [facility] [address] [place] [address] Dr. Baron Chavira MONO # 0.7 103/ul Normal 0.3-0.8 [facility] Comment on above: Performed By: #### C BC #### [facility] [address] [place] [address] Dr. Baron Chavira Monocytes/100 WBC (Bld) 7.2 % Normal 1.7-12.0 [facility] Comment on above: Performed By: #### C BC #### [facility] [address] [place] [address] Dr. Baron Chavira NEUT # 6.5 103/ul Normal 1.4-6.5 [facility] Comment on above: Performed By: #### C BC #### [facility] [address] [place] [address] Dr. Baron Chavira Neutrophils/100 WBC (Bld) 67.2 % Normal 43.0-75.0 [facility] Comment on above: Performed By: #### C BC #### [facility] [address] [place] [address] Dr. Baron Chavira Platelet mean volume (Bld) [Entitic vol] 10.1 fL Normal 9.5-13.5 [facility] Comment on above: Performed By: #### C BC #### [facility] [address] [place] [address] Dr. Baron Chavira PLT 265 103/ul Normal 150-450 [facility] Comment on above: Performed By: #### C BC #### [facility] [address] [place] [address] Dr. Baron Chavira RBC 5.03 106/ul Normal 4.20-5.40 [facility] Comment on above: Performed By: #### C BC #### [facility] [address] [place] [address] Dr. Baron Chavira WBC 9.7 103/ul Normal 4.0-11.0 [facility] Comment on above: Performed By: #### C BC #### [facility] [address] [place] [address] Dr. Baron Chavira LIPASEon 05-06-2023 Lipase [Catalytic activity/Vol] 120.0 U/L Normal 73.0-393.0 [facility] Comment on above: Performed By: #### A MY, LIPA, CMP #### [facility] [address] [address] [address] Baron Chavira PROF 14(COMP METB)on 023 Albumin [Mass/Vol] 3.1 g/dL Critically low 3.4-5.0 [facility] Comment on above: Performed By: #### A MY, LIPA, CMP #### [facility] [address] [address] [address] Baron Chavira Albumin/Globulin [Mass ratio] 0.8 {ratio} Normal [facility] Comment on above: Performed By: #### A MY, LIPA, CMP #### [facility] [address] [address] [address] Baron Chavira ALP [Catalytic activity/Vol] 75 U/L Normal 46-116 [facility] Comment on above: Performed By: #### A MY, LIPA, CMP #### [facility] [address] [address] [address] Baron Chavira ALT [Catalytic activity/Vol] 20 U/L Normal 14-59 [facility] Comment on above: Performed By: #### A MY, LIPA, CMP #### [facility] [address] [address] [address] Baron Chavira Anion gap [Moles/Vol] 11.7 mmol/L Normal [facility] Comment on above: Performed By: #### A MY, LIPA, CMP #### [facility] [address] [address] [address] Baron Chavira AST [Catalytic activity/Vol] 16 U/L Normal 15-37 [facility] Comment on above: Performed By: #### A MY, LIPA, CMP #### [facility] [address] [address] [address] Baron Chavira Bilirubin [Mass/Vol] 0.3 mg/dL Normal 0.2-1.0 [facility] Comment on above: Performed By: #### A MY LIPA, CMP #### [facility] [address] [address] [address] Baron Chavira Calcium [Mass/Vol] 8.7 mg/dL Normal 8.5-10.1 [facility] Comment on above: Performed By: #### A MY, LIPA, CMP #### [facility] [address] [place] [address] Dr. Baron Chavira Chloride [Moles/Vol] 106 mmol/L Normal 98-107 [facility] Comment on above: Performed By: #### A MY LIPA, CMP #### [facility] [address] [place] [address] Dr. Baron Chavira CO2 [Moles/Vol] 26.8 mmol/L Normal 21.0-32.0 [facility] Comment on above: Performed By: #### A MY LIPA, CMP #### [facility] [address] [place] [address] Dr. Baron Chavira Creatinine [Mass/Vol] 0.72 mg/dL Normal 0.55-1.02 [facility] Comment on above: Performed By: #### A SVETLANA LIPA, CMP #### [facility] [address] [place] [address] Dr. Baron Chavira EGFR-AF POLISH >60 Normal >=[address] [facility] Comment on above: Performed By: #### A SVETLANA LIPA, CMP #### [facility] [address] [place] [address] Dr. Baron Chavira EGFR-NON AF POLISH >60 Normal >=60 [facility] Comment on above: Performed By: #### A MY LIPA, CMP #### [facility] [address] [place] [address] Dr. Baron Chavira Globulin (S) [Mass/Vol] 3.7 g/dL Normal [facility] Comment on above: Performed By: #### A MY LIPA, CMP #### [facility] [address] [place] [address] Dr. Baron Chavira Glucose [Mass/Vol] 92 mg/dL Normal 74-106 [facility] Comment on above: Performed By: #### A ARLENE MOTA, CMP #### [facility] [address] [place] [address] Dr. Baron Chavira Potassium [Moles/Vol] 3.5 mmol/L Normal 3.5-5.1 [facility] Comment on above: Performed By: #### A ARLENE MOTA, CMP #### [facility] [address] [address] [address] Baron Chavira Protein [Mass/Vol] 6.8 g/dL Normal 6.4-8.2 [facility] Comment on above: Performed By: #### A ARLENE MOTA, CMP #### [facility] [address] [place] [address] Dr. Baron Chavira Sodium [Moles/Vol] 141 mmol/L Normal 136-145 [facility] Comment on above: Performed By: #### A ARLENE MOTA, CMP #### [facility] [address] [place] [address] Dr. Baron Chavira Urea nitrogen [Mass/Vol] 11.0 mg/dL Normal 7.0-18.0 [facility] Comment on above: Performed By: #### A ARLENE MOTA, CMP #### [facility] [address] [place] [address] Dr. Baron Chavira Urea nitrogen/Creatinine [Mass ratio] 15.3 mg/mg Normal [facility] Comment on above: Performed By: #### A ARLENE MOTA, CMP #### [facility] [address] [place] [address] Dr. 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 Performed By: #### C VDTBH #### [facility] [address] [place] [address] Dr. Baron Chavira GROUP A STREP CULTUREon S. pyogenes Ag Ql (Unsp spec) Culture Observations: NEGATIVE FOR GROUP A STREPTOCOCCUS. Normal [facility] Comment on above: Performed By: #### S SCRN, GRASTCX #### [facility] [address] [place] [address] Dr. Baron Chavira INFLUENZA A AND B AGon 12-20 [facility] SEE BELOW Normal [facility] Comment on above: Result Comment: Nega tive for Flu A protein angiten. Infection due to Flu A cannot be ruled out. Flu A angiten in the sample may be below the detection limit of the test. Performed By: #### I NFLUAB #### [facility] [address] [place] [address] Dr. Baron Chavira INFLUBNEGH SEE BELOW Normal [facility] Comment on above: Result Comment: Nega tive for Flu B protein antigen. Infection due to Flu B cannot be ruled out. Flu B antigen in the sample may be below the detection limit of the test. Performed By: #### I NFLUAB #### [facility] [address] [place] [address] Dr. Baron Chavira INFLUENZA A AG Negative Normal NEGATIVE SEE COMMENT [facility] Comment on above: Performed By: #### I NFLUAB #### [facility] [address] [place] [address] Dr. Baron Chavira INFLUENZA B AG Negative Normal NEGATIVE SEE COMMENT [facility] Comment on above: Performed By: #### I NFLUAB #### [facility] [address] [place] [address] Dr. Baron Chavira INTERNAL CONTROLS Within Normal Limits Normal Wi thin Normal Limits [facility] Comment on above: Performed By: #### I NFLUAB #### [facility] [address] [place] [address] Dr. Baron Chavira STREPT SCREENon 12-20-2021 STREP SCREEN A Negative Normal NEGATIVE [facility] Comment on above: Performed By: #### S SCRN, GRASTCX #### [facility] [address] [place] [address] Dr. Baron Chavira Quick Fluon 11-09-2021 FLUAV Ab CF (S) [Titer] Negative [employer] Other FLUBV Ab CF (S) [Titer] Negative [employer] [facility] [employer] Other [place] Thyroidon 08-02-2021 US Thyroid HISTORY: [...] by Silvino Dillon on 08/02/2021 1448 Normal [facility] [employer] Work[employer] Vital Signs Date Time Vital Sign Value Performing Clinician Facility 12-30-2023 09:13-0400 Body mass index (BMI) [Ratio] 30.27 kg/m2 Chani Coles MD Work Phone: [facility] 12-30-2023 09:13-0400 Body weight 75.75 kg Chani Coles MD Work Phone: [facility] 12-30-2023 09:13-0400 Diastolic blood pressure 64 mm[Hg] Chani Coles MD Work Phone: [facility] 12-30-2023 09:13-0400 Heart rate 70 /min Chani Coles MD Work Phone: [facility] 12-30-2023 09:13-0400 Systolic blood pressure 127 mm[Hg] Chani Coles MD Work Phone: [facility] 07-01-2023 09:33-0500 Body height 158.2 cm Chani Coles MD Work Phone: [facility] 07-01-2023 09:33-0500 Body weight 70.31 kg Chani Coles MD Work Phone: [facility] 07-01-2023 09:33-0500 Diastolic blood pressure 76 mm[Hg] Chani Coles MD Work Phone: [facility] 07-01-2023 09:33-0500 Heart rate 98 /min Chani Coles MD Work Phone: [facility] 07-01-2023 09:33-0500 Systolic blood pressure 147 mm[Hg] Chani Coles MD Work Phone: [facility] 11-09-2021 16:20-0400 Body height 157.48 cm Tari Carmona Other [employer] Other 11-09-2021 16:20-0400 Body mass index (BMI) [Ratio] 31.64 kg/m2 Tari Carmona Other [employer] Other 11-09-2021 16:20-0400 Body temperature 98 [degF] Tari Carmona Other [employer] Other 11-09-2021 16:20-0400 Body weight 78.47 kg Tari Carmona Other [employer] Other 11-09-2021 16:20-0400 Respiratory rate 18 /min Tari Carmona Other [employer] Other 11-09-2021 16:20-0400 SaO2% (BldA) [Mass fraction] 97 % Tari Carmona Other [employer] Other Encounters Encounter Date Encounter Type Care Provider Facility Start: 12-30-2023 End: 12-30-2023 ambulatory CHANI COLES Facility:[facility] Start: 12-30-2023 End: 12-30-2023 Patient encounter procedure Chani Coles MD Work Phone: Endocrinology Comment on above: Hyperthyroidism (Sonia christiano Dx); Class 1 obesity; Vitamin D deficiency Start: 12-05-2023 ambulatory Chani Coles MD Work Phone: Endocrinology Comment on above: blood work Start: 12-05-2023 Telephone encounter Chani prasad MD Work Phone: Endocrinology Comment on above: lab letter Start: 12-04-2023 ambulatory Chani Coles MD Work Phone: Endocrinology Comment on above: eyes Start: 11-26-2023 Refill Chani Coles MD Work Phone: Endocrinology Comment on above: Refill Request Start: 11-17-2023 ambulatory Chani Coles MD Work Phone: Endocrinology Comment on above: blood work Start: 10-09-2023 ambulatory Chani Coles MD Work Phone: Endocrinology Start: 10-09-2023 E-mail encounter fro m caregiver Chani Coles MD Work Phone: [facility] Start: 10-09-2023 Telephone encounter Chani prasad MD Work Phone: Endocrinology Comment on above: Outside Lab Results Start: 10-06-2023 ambulatory Chani Coles MD Work Phone: Endocrinology Comment on above: blood results Start: 09-20-2023 ambulatory Chani Coles MD Work Phone: Endocrinology Comment on above: blood work Refill Request Start: 08-26-2023 End: 08-27-2023 ambulatory DEON STEINBERG Not Available Start: 08-26-2023 Chart abstracting Deon Steinberg NUCLEAR MEDICINE SPECIALIST Work Phone: [facility] Start: 07-31-2023 ambulatory Chani Coles MD Work Phone: Endocrinology Comment on above: Thyroid Start: 07-31-2023 E-mail encounter fro m caregiver Chani Coles MD Work Phone: [facility] Start: 07-01-2023 Telephone encounter Chani prasad MD Work Phone: Endocrinology Comment on above: Request for Clinical Notes (Chart notes Request) Start: 07-01-2023 End: 07-01-2023 Patient encounter procedure Chani Coles MD Work Phone: Endocrinology Comment on above: Hyperthyroidism (Sonia christiano Dx) Start: 07-01-2023 End: 07-01-2023 ambulatory CHANI COLES Facility:[facility] Start: 06-25-2023 End: 06-26-2023 ambulatory AURORA FLORES Not Available Start: 01-30-2023 End: 01-30-2023 Emergency department patient visit Deon Steinberg Facility:[facility] Start: 11-23-2022 End: 11-23-[address] AVINASH CARRANZA . Facility:[facility] Start: 12-20-2021 End: 12-20-2021 ambulatory YULIANA NORMAN . Facility:[facility] Start: 11-09-2021 End: 11-09-2021 ambulatory Tari Carmona Other [employer] Other Start: 11-09-2021 Office outpatient vi sit 15 minutes Tari Carmona [facility] Procedures Date Procedure Procedure Detail Performing Clinician Start: 11-10-2023 TSH BLOOD (EU,FV,HL,NAREN,MM,SP) [facility] Start: 10-02-2023 Thyrotropin [Units/v olume] in Serum or Plasma [facility] Start: 10-02-2023 TSH BLOOD (EU,FV,HL,NAREN,MM,SP) [facility] Provider Plan of Treatment Date Care Activity Detail Author Start: 01-30-2033 Urine microalbumin profile DTaP,Tdap,Td Vaccine (8 - Td or Tdap) [facility] Start: 06-22-2024 End: 06-22-2024 Patient encounter procedure 06/22/2024 11:40 AM EST Office Visit Endocrinology [address] [place], [place] [id number] Chani Coles MD [address] [place] [address] 6m follow up Endocrinology Comment on above: 6m follow up Start: 03-21-2024 Influenza vaccination Influenz a Vaccine (Season Ended) [facility] Start: 01-18-2024 Influenza vaccination Influenza Vacc ine (#1) [facility] Comment on above: Postponed from 03/21 (Patient Refused) Start: 12-30-2023 End: 12-30-2023 Patient encounter procedure 12/30/2023 9:40 AM EDT Office Visit Endocrinology [address] [place] [address] Chani Coles MD [address] [place] [address] 6 month follow up Endocrinology Comment on above: 6 month follow up Start: 12-10-2023 End: 12-10-2023 Patient encounter procedure 12/10/2023 2:00 PM EDT Office Visit [facility] [address] [place] [address] Driss Hartman MD [address] [place] [address] Graves' eye disease [E05.00] Ophthalmology Comment on above: Graves' eye disease [E05.00] Start: 08-26-2023 End: 08-26-2023 Patient encounter procedure 08/26/2023 4:00 PM EST Office Visit [facility] [address] [place] [address] Deon Steinberg NP [address] [place] [address] [facility] Start: 03-21-2023 Covid-19 Vaccine ( season) Covid-19 Vaccine ( season) [facility] Start: 03-21-2023 Influenza vaccination Influenza Vacc ine (#1) [facility] Start: 2022 Screening for malign ant neoplasm of cervix [facility] Start: 10-18-2019 Annual PCP Team [employer] john Disease Visit Annual PCP Team Chronic Disease Visit [facility] Start: 10-18-2019 GC (Gonorrhea) Chelsey elkins (18-24) GC (Gonorrhea) Screening (18-24) [facility] Start: 10-18-2019 Hepatitis C screening Hepatitis C Sc reening [facility] Start: 10-18-2019 HIV screening HIV Screening [facility] Start: 10-18-2019 Screening for Chlamy harvey trachomatis Chlamydia Screening () [facility] Start: 2017 Meningococcal B Vacc ine: Consider Based On Risk (1 of 2 - Patient Seeks Protection) Meningococcal B Vaccine: Consider Based On Risk (1 of 2 - Patient Seeks Protection) [facility] Start: 2016 HPV Vaccine (1 - 3-d ose series) HPV Vaccine (1 - 3-dose series) [facility] Start: 10-18-2015 Peds To Adult Transi tion Annual Assessment Peds To Adult Transition Annual Assessment [facility] Start: 2013 Peds To Adult Transi tion Initial Discussion Peds To Adult Transition Initial Discussion [facility] Start: 2010 HPV Vaccine (1 - 2-d ose series) HPV Vaccine (1 - 2-dose series) [facility] Immunizations Immunization Date Immunization Notes Care Provider Fa cility 01-30-2023 tetanus toxoid, redu tete diphtheria toxoid, and acellular pertussis vaccine, adsorbed Chani Coles MD Work Phone: [facility] Work Phone: 01-03-2021 COVID-19 original vaccine, full dose, monovalent (MODERNA) Chani Coles MD Work Phone: [facility] Work Phone: 12-06-2020 COVID-19 original vaccine, full dose, monovalent (MODERNA) Chani Coles MD Work Phone: [facility] Work Phone: 03-02-2019 meningococcal polysaccharide (groups A, C, Y and W-135) diphtheria toxoid conjugate vaccine (MCV4P) Chani Coles MD Work Phone: [facility] Work Phone: 08-07-2017 influenza, injectabl e, quadrivalent, preservative free Chani Coles MD Work Phone: [facility] Work Phone: 08-07-2017 influenza virus vacc ine, unspecified formulation Chani Coles MD Work Phone: [facility] 10-29-2013 diphtheria, tetanus toxoids and pertussis vaccine Chani Coles MD Work Phone: [facility] Work Phone: 10-29-2013 hepatitis A vaccine, pediatric/adolescent dosage, 2 dose schedule Chani Coles MD Work Phone: [facility] Work Phone: 10-29-2013 meningococcal ACWY vaccine, unspecified formulation Chani Coles MD Work Phone: [facility] Work Phone: 02-02-2007 diphtheria, tetanus toxoids and acellular pertussis vaccine, unspecified formulation Chani Coles MD Work Phone: [facility] Work Phone: 02-02-2007 measles, mumps and rubella virus vaccine Chani Coles MD Work Phone: [facility] Work Phone: 02-02-2007 poliovirus vaccine, inactivated Chani Coles MD Work Phone: [facility] Work Phone: 05-10-2003 diphtheria, tetanus toxoids and acellular pertussis vaccine, unspecified formulation Chani Coles MD Work Phone: [facility] Work Phone: 05-10-2003 poliovirus vaccine, inactivated Chani Coles MD Work Phone: [facility] Work Phone: 01-28-2003 haemophilus influenz ae type b vaccine, HbOC conjugate Chani Coles MD Work Phone: [facility] Work Phone: 01-28-2003 pneumococcal conjuga te vaccine, 7 valent Chani Coles MD Work Phone: [facility] Work Phone: 10-29-2002 hepatitis B vaccine, pediatric or pediatric/adolescent dosage Chani Coles MD Work Phone: [facility] Work Phone: 10-29-2002 measles, mumps and rubella virus vaccine Chani Coles MD Work Phone: [facility] Work Phone: 10-29-2002 pneumococcal conjuga te vaccine, 7 valent Chani Coles MD Work Phone: [facility] Work Phone: 05-26-2002 diphtheria, tetanus toxoids and acellular pertussis vaccine, unspecified formulation Chani Colse MD Work Phone: [facility] Work Phone: 05-26-2002 haemophilus influenz ae type b vaccine, HbOC conjugate Chani Coles MD Work Phone: [facility] Work Phone: 05-26-2002 pneumococcal conjuga te vaccine, 7 valent Chani Coles MD Work Phone: [facility] Work Phone: 04-02-2002 diphtheria, tetanus toxoids and acellular pertussis vaccine, unspecified formulation Chani Coles MD Work Phone: [facility] Work Phone: 04-02-2002 haemophilus influenz ae type b vaccine, HbOC conjugate Chani Coles MD Work Phone: [facility] Work Phone: 04-02-2002 pneumococcal conjuga te vaccine, 7 valent Chani Coles MD Work Phone: [facility] Work Phone: 04-02-2002 poliovirus vaccine, inactivated Chani Coles MD Work Phone: [facility] Work Phone: 01-22-2002 diphtheria, tetanus toxoids and acellular pertussis vaccine, unspecified formulation Chani Coles MD Work Phone: [facility] Work Phone: 01-22-2002 haemophilus influenz ae type b conjugate and Hepatitis B vaccine Chani Coles MD Work Phone: [facility] Work Phone: 01-22-2002 poliovirus vaccine, inactivated Chani Coles MD Work Phone: [facility] Work Phone: 2001 hepatitis B vaccine, pediatric or pediatric/adolescent dosage Chani Coles MD Work Phone: [facility] Work Phone: Payers Date Payer Category Payer Self-pay 2022 Private Health Insurance [id number] 2021 Unknown [id number] 2001 Unknown [id number] 2000 Unknown [id number] 2.16.84 [id number] 2001 Unknown [id number] 2.16.84 [id number] 2001 Unknown [id number] 2.16.84 [id number] 2001 Unknown [id number] 1958 [facility] ANNEL [id number] 1958 Unknown [id number]. [id number] 1958 Unknown [id number] Unknown [id number] 2.16.8 [id number] Social History Date Type Detail Facility Unknown if ever smoked [facility] Other Start: 07-01-2023 End: 12-30-2023 Sex Assigned At [facility] Start: 05-29-2023 End: 07-01-2023 Tobacco smoking status NHIS Never smoked tobacco [facility] Start: 05-29-2023 End: 07-01-2023 Tobacco use and exposure Smokeless tobacco non-user [facility] Start: 07-01-2023 End: 12-30-2023 Alcohol intake Lifetime non-drinker (finding) [facility] Start: 07-01-2023 End: 12-30-2023 History of Social function [facility] National Score (1-100), lower number is lower risk 65 [facility] Start: 2001 Sex Assigned At Not on file [facility] Start: 06-25-2023 Alcohol intake Ex-drinker (finding) [facility] Are you now , , , , never or living with a partner? Refused [facility] (I/We) worried whether (my/our) food would run out before (I/we) got money to buy more. DK or Refused [facility] Start: 10-02-2022 Gender identity Identifies as female gender (finding) [facility] NEGATED: Highlighted rowStart: JILLIAN History of tobacco use Passive smoker [facility] Clinical Notes 11-09-2021 to 12-30-2023 Chani Coles MD - 12/30/2023 9:31 AM EDTPatient InstructionsTelefouzia Koo Nurseryman AssistantAkshat Ho - 12/05/2023 2:25 PM EDTTelephone Encounter - Theresa Trejo - 10/09/2023 6:45 AM EDT Note Date & Type Note Facility 12-30-2023 Note HNO ID: [id number] Author: CHANI COLES MD Service: ? Author Type: Physician Type: Progress Notes Filed: 12/30/2023 10:25 Note Text: Answers submitted by the patient for this visit: Core Review of Systems (Submitted on 12/24/2023) Fever : No Night sweats: Yes Recent unintentional weight change: Yes Nasal Congestion: No Hearing Loss: No Vision Disturbance: No A cough: No Difficulty Breathing?: No Chest pain: No Irregular heartbeat: No Leg Swelling: No Nausea: No Diarrhea: No Black tarry stools: No Difficulty Urinating?: No Awaken at Night More Than Once to Urinate?: No Joint pain or stiffness: No Muscle aches: No Leg or Foot Discomfort at Night?: No A rash: No Dizziness: Yes Headaches: Yes Memory Loss: No Seizures: No María Anaya is a 23 year old female who is presenting today December 30, 2023 for a Thyroid problem. Social History Tobacco Use Smoking status: Never Passive exposure: Never Smokeless tobacco: Never Substance Use Topics Alcohol use: Never Drug use: Never Reason for visit: Grave's Disease Previous laboratory results: TSH Date Value 11/10/2023 2.46 IU/ml 10/02/2023 16.550 mIU/L 10/02/2023 16.55 IU/ml 07/23/2023 <0.01 IU/ml Free T4 Date Value 12/10/2023 1.1 ng/dL 11/10/2023 1.2 ng/dL 10/02/2023 0.7 ng/ml 07/23/2023 1.2 FREE T4 (ng/dL) Date Value 10/02/2023 0.7 Free T3 Date Value 11/10/2023 3.1 PG/Ml 10/02/2023 2.7 pg/ml 07/23/2023 2.9 pg/mL 07/01/2023 11.2 pg/mL TSI (IU/L) Date Value 07/01/2023 20.20 Subjective: Weight: increased, 12 Lb in past 6 months Energy: reduced but improving Moods: fair some irritability Sleep: Normal sleep pattern; Temp. Intolerance: Heat Intolerance Diaphoresis: Increased; Memory: Good improving Thyroid Pain: no; Mass Effect: None CV: palpitations racing 90s random or hs Resp: No cough, hemoptysis, asthma, recent chest infection, wheezing; GI: No blood in stool, pain with BM, tarry stool, persistent diarrhea or constipation; REPRODUCTIVE: cycle 28 days on OCPs Eyes: Dryness, Itching, tearing, and pressure; Skin: Very dry. Notes hair loss. M/S: negative ; Neuro: frequent headaches every other day Physical Exam BP 127/64 Pulse 70 Wt 75.8 kg (167 lb) LMP 06/29/2023 BMI 30.27 kg/m? APPEARANCE: Well appearing, alert, in no acute distress, mildly Obese EYES BRAD, extra occular movements normal NECK Supple, no adenopathy; thyroid moderately enlarged HEART RRR with normal S1 and S2, no murmurs, no gallops, no JVD appreciated LUNGS clear to auscultation ABD central adiposity EXTREMITIES No deformities, No skin discoloration, and No edema NEURO Awake, alert and oriented x 3, Reflexes symmetrical and Cranial nerves II-XII grossly intact, No longer has tremor. SKIN Skin color, texture, turgor normal, no suspicious rashes or lesions Impression: This 23 yo is seen in follow-up for hyperthyroidism due to Graves disease. She had lab last month that was euthyroid on methimazole 5 mg daily. She remains on propranolol 60 ER mg. She notes hair loss and has had vitamin D deficiency. Recommendations: Continue methimazole 5 mg daily and propranolol ER 60 mg daily.. Begin Vitamin D 2000 units daily. Repeat lab in 3 months- Lab letter given for outside lab. Can take biotin but hold 3 days prior to lab draw. RTN 6 months. Chani Coles MD Endocrinology Staff [facility] 12-30-2023 History of Presen t illness Narrative Answers submitted by the patient for this visit: Core Review of Systems (Submitted on 12/24/2023) Fever : No Night sweats: Yes Recent unintentional weight change: Yes Nasal Congestion: No Hearing Loss: No Vision Disturbance: No A cough: No Difficulty Breathing?: No Chest pain: No Irregular heartbeat: No Leg Swelling: No Nausea: No Diarrhea: No Black tarry stools: No Difficulty Urinating?: No Awaken at Night More Than Once to Urinate?: No Joint pain or stiffness: No Muscle aches: No Leg or Foot Discomfort at Night?: No A rash: No Dizziness: Yes Headaches: Yes Memory Loss: No Seizures: No María Anaya is a 23 year old female who is presenting today December 30, 2023 for a Thyroid problem. Social History Tobacco Use Smoking status: Never Passive exposure: Never Smokeless tobacco: Never Substance Use Topics Alcohol use: Never Drug use: Never Reason for visit: Grave's Disease Previous laboratory results: TSH Date Value 11/10/2023 2.46 IU/ml 10/02/2023 16.550 mIU/L 10/02/2023 16.55 IU/ml 07/23/2023 <0.01 IU/ml Free T4 Date Value 12/10/2023 1.1 ng/dL 11/10/2023 1.2 ng/dL 10/02/2023 0.7 ng/ml 07/23/2023 1.2 FREE T4 (ng/dL) Date Value 10/02/2023 0.7 Free T3 Date Value 11/10/2023 3.1 PG/Ml 10/02/2023 2.7 pg/ml 07/23/2023 2.9 pg/mL 07/01/2023 11.2 pg/mL TSI (IU/L) Date Value 07/01/2023 20.20 Subjective: Weight: increased, 12 Lb in past 6 months Energy: reduced but improving Moods: fair some irritability Sleep: Normal sleep pattern; Temp. Intolerance: Heat Intolerance Diaphoresis: Increased; Memory: Good improving Thyroid Pain: no; Mass Effect: None CV: palpitations racing 90s random or hs Resp: No cough, hemoptysis, asthma, recent chest infection, wheezing; GI: No blood in stool, pain with BM, tarry stool, persistent diarrhea or constipation; REPRODUCTIVE: cycle 28 days on OCPs Eyes: Dryness, Itching, tearing, and pressure; Skin: Very dry. Notes hair loss. M/S: negative ; Neuro: frequent headaches every other day Physical Exam BP 127/64 Pulse 70 Wt 75.8 kg (167 lb) LMP 06/29/2023 BMI 30.27 kg/m APPEARANCE: Well appearing, alert, in no acute distress, mildly Obese EYES BRAD, extra occular movements normal NECK Supple, no adenopathy; thyroid moderately enlarged HEART RRR with normal S1 and S2, no murmurs, no gallops, no JVD appreciated LUNGS clear to auscultation ABD central adiposity EXTREMITIES No deformities, No skin discoloration, and No edema NEURO Awake, alert and oriented x 3, Reflexes symmetrical and Cranial nerves II-XII grossly intact, No longer has tremor. SKIN Skin color, texture, turgor normal, no suspicious rashes or lesions Impression: This 23 yo is seen in follow-up for hyperthyroidism due to Graves disease. She had lab last month that was euthyroid on methimazole 5 mg daily. She remains on propranolol 60 ER mg. She notes hair loss and has had vitamin D deficiency. Recommendations: Continue methimazole 5 mg daily and propranolol ER 60 mg daily.. Begin Vitamin D 2000 units daily. Repeat lab in 3 months- Lab letter given for outside lab. Can take biotin but hold 3 days prior to lab draw. RTN 6 months. Chani Coles MD Endocrinology Staff documented in this encounter [facility] 12-30-2023 Instructions Ramin Dunne MA - 12/30/2023 9:13 AM EDT Thank you for choosing the [facility] Department of Endocrinology, Diabetes and Metabolism. Did you know that you need to call 48 hours in advance of your scheduled visit, if you are unable to make your appointment? [facility] thanks you for your commitment, because patients not showing to their appointment results in a lost opportunity for patients to receive world class health care at the [facility]. To Cancel an appointment, please choose one of the following: - Call the Appointment Call Center at [phone] - From [facility], Go to Appointments - Cancel Appts If cancelling, consider your need to reschedule to prevent further delays in your care. To Schedule an appointment, please choose one of the following: - Call the Appointment Call Center at [phone] - From [facility], Go to Appointments - Request an Appt documented in this encounter [facility] 12-05-2023 Telephone encounter Note Mailed lab letter to patients home address on file. Akshat Koo Cut Off Worker II [facility] 12-05-2023 Miscellaneous Notes Mailed lab letter to patients home address on file. Akshat Koo Cut Off Worker II [facility] documented in this encounter [facility] 11-27-2023 Telephone encounter Note Requester: Pharmacy Patients last Endocrinology visit occurred 07/01/23. Follow-up evaluation has been established Upcoming Endocrinology Appointments - Next 365 Days Visit Type Date Time Department EST MANJULA PATIENT 12/30/2023 9:40 AM ENDO MAIN . Requested Prescriptions Pending Prescriptions Disp Refills propranolol ER (INDERAL LA) 60 mg 24 hr capsule 30 capsule 5 Sig: Take 1 capsule by mouth once daily. If patient is due for an appointment please route to provider for refill consideration and also to the endo scheduling pool. PSS NOTE: Patient needs scheduled appointment No [facility] 11-27-2023 Miscellaneous Notes Requester: Pharmacy Patients last Endocrinology visit occurred 07/01/23. Follow-up evaluation has been established Upcoming Endocrinology Appointments - Next 365 Days Visit Type Date Time Department EST MANJULA PATIENT 12/30/2023 9:40 AM ENDO MAIN . Requested Prescriptions Pending Prescriptions Disp Refills propranolol ER (INDERAL LA) 60 mg 24 hr capsule 30 capsule 5 Sig: Take 1 capsule by mouth once daily. If patient is due for an appointment please route to provider for refill consideration and also to the endo scheduling pool. PSS NOTE: Patient needs scheduled appointment No documented in this encounter [facility] 10-09-2023 Miscellaneous Notes Your thyroid is now low. Reduce methimazole to 1/2 tab daily. Chani Coles MD documented in this encounter [facility] 10-09-2023 Miscellaneous Notes Updated labs from (location) [facility]. Date labs collected 10/02/23. Date scanned in chart 10/09/23. Theresa Dsouza Cut Off Worker [facility], F20 documented in this encounter [facility] 09-22-2023 Miscellaneous Notes Sent patient letter for repeat thyroid labs. documented in this encounter [facility] 07-01-2023 Miscellaneous Notes Patient's external provider requested patient's most recent endocrinology office notes be faxed to them. Faxed office notes from visit date 07/01/2023 to DEON STEINBERG CNP [phone] Transmitted successfully. KEILY MCLAUGHLIN Cut Off Worker II [facility]ology [facility] X-20 documented in this encounter [facility] 07-01-2023 Note HNO ID: [id number] Author: Chani Coles MD Service: ? Author [...] 05, 2023 TSH <0.01, T3 353 (ref [id number]). Most likely Graves disease. Has mild eye signs despite patient denying eye symptoms. Recommendations: Lab today for free T3 and TSI. Increase methimazole dose to 10 mg bid. Add propranolol-ER- 120 mg for cardiac symptoms. RTN 6 months Lab letter given to the patient to have lab drawn in 3 weeks. Chani Coles MD Endocrinology Staff CC Deon Steinberg CNP [facility] 07-01-2023 History of Presen t illness [...] 05, 2023 TSH <0.01, T3 353 (ref [id number]). Most likely Graves disease. Has mild eye [...] Deon Steinberg CNP documented in this encounter [facility] 07-01-2023 Instructions Ramin Dunne Ma - 07/01/2023 9:30 AM EST Thank you for choosing the [facility] Department of Endocrinology, Diabetes and Metabolism. Did you know that you need to call 48 hours in advance of your scheduled visit, if you are unable to make your appointment? [facility] thanks you for your commitment, because patients not showing to their appointment results in a lost opportunity for patients to receive [facility] health care at the [facility]. To Cancel an appointment, please choose one of the following: - Call the Appointment Call Center at [phone] - From [facility], Go to Appointments - Cancel Appts If cancelling, consider your need to reschedule to prevent further delays in your care. To Schedule an appointment, please choose one of the following: - Call the Appointment Call Center at [phone] - From [facility], Go to Appointments - Request an Appt documented in this encounter [facility] 07-08-2022 Note PROCEDURE: [employer] VCT 64, 5 mm slice axial images [...] signed by Silvino Dillon on 07/09/2022 0731 [facility] Cinder Worker 12-20-2021 Note PROCEDURE: XR CHEST 1 V [...] by: HARSHA HURST Date: 2021-12-20 20:47 [facility] 11-09-2021 Evaluation note Encounter Date Diagnosis Assessment Notes Oct, Contact with and (suspected) exposure to other viral communicable diseases (ICD-10 - Z20.828) Oct, Viral URI with cough (ICD-10 - J06.9) Advised patient that Influenza A/B, rapid COVID antigen, and Strep test were negative today in office. Discussed diagnosis with patient. Will send in rx of [facility] and Flonase to use as directed. Encouraged [...] Patient care instructions given in writting by [facility] document [facility] Other Evaluation note* Diagnosis Hyperthyroidism- Primary Thyrotoxicosis without mention of goiter or other cause, without mention of thyrotoxic crisis or storm [facility] Diagnosis Hyperthyroidism Thyrotoxicosis without mention of goiter or other cause, without mention of thyrotoxic crisis or storm [facility] Diagnosis Hyperthyroidism Thyrotoxicosis without mention of goiter or other cause, without mention of thyrotoxic crisis or storm [facility] Diagnosis Graves' eye disease- Primary Toxic diffuse goiter without mention of thyrotoxic crisis or storm Hyperthyroidism Thyrotoxicosis without mention of goiter or other cause, without mention of thyrotoxic crisis or storm [facility] Diagnosis Hyperthyroidism- Primary Thyrotoxicosis without mention of goiter or other cause, without mention of thyrotoxic crisis or storm Class 1 obesity Vitamin D deficiency Unspecified vitamin D deficiency documented in this encounter [facility] general Narrative - Reported* Type Description Date Medical History Asthma with status a sthmaticus, unspecified asthma severity Surgical History wisdom teeth Hospitalization History pneumonia [facility] Other Summary Purpose Family History No Family History Records FoundNo Family History Records FoundNo Family History Records FoundNo Family History Records FoundNo Family History Records Found Advance Directives No Advanced Directives Records FoundNo Advanced Directives Records FoundNo Advanced Directives Records FoundNo Advanced Directives Records FoundNo Advanced Directives Records Found Reason for Referral Specialty Diagnoses / Procedures Referred By Ginna parikh Referred To Contact Ophthalmology Diagnoses Hyperthyroidism Graves' eye disease Procedures CONSULT TO OPHTHALMOLOGY OFFICE/OUTPATIENT [facility] 60 MINUTES Chani Coles MD [address] [place] [address] Referral ID Status Reason Start Date Expiration Date Visits Requested Visits Authorized [id number] Authorized PCP Requested Referral 12/05/2023 12/04/2024 1 1 Additional Source Comments REASON FOR VISIT (unrecogniz ed section and content) Reason Comments Thyroid Problem Reason Comments Request for Clinical Notes Chart notes R equest Reason Comments Outside Lab Results Reason Onset Date Comments Refill Request 09/20/2023 Reason Onset Date Comments Refill Request 11/26/2023 Reason Comments lab letter Reason Comments Thyroid Problem F/u INFORMATION SOURCE (unrecogn ized section and content) DATE CREATED AUTHOR 07/12/2022 [facility] dical Specialist DATE CREATED AUTHOR AUTHOR'S ORGANIZ ATION 11/28/2022 [facility] DATE CREATED AUTHOR AUTHOR'S ORGANIZ ATION 02/13/2023 [facility] DATE CREATED AUTHOR AUTHOR'S ORGANIZ ATION 08/31/2023 [facility] dical Specialists [facility] DATE CREATED AUTHOR AUTHOR'S ORGANIZ ATION 12/31/2023 [facility] Source Comments (unrecognize d section and content) In the event this informatio n is protected by the Federal Confidentiality of Alcohol and Drug Abuse Patient Records regulations: The Federal rules restrict any use of the information to criminally investigate or prosecute any alcohol or drug abuse patient.[facility] the event this information is protected by the Federal Confidentiality of Alcohol and Drug Abuse Patient Records regulations: The Federal rules restrict any use of the information to criminally investigate or prosecute any alcohol or drug abuse patient.[facility] the event this information is protected by the Federal Confidentiality of Alcohol and Drug Abuse Patient Records regulations: The Federal rules restrict any use of the information to criminally investigate or prosecute any alcohol or drug abuse patient.[facility] the event this information is protected by the Federal Confidentiality of Alcohol and Drug Abuse Patient Records regulations: The Federal rules restrict any use of the information to criminally investigate or prosecute any alcohol or drug abuse patient.[facility] the event this information is protected by the Federal Confidentiality of Alcohol and Drug Abuse Patient Records regulations: The Federal rules restrict any use of the information to criminally investigate or prosecute any alcohol or drug abuse patient.[facility] the event this information is protected by the Federal Confidentiality of Alcohol and Drug Abuse Patient Records regulations: The Federal rules restrict any use of the information to criminally investigate or prosecute any alcohol or drug abuse patient.[facility] the event this information is protected by the Federal Confidentiality of Alcohol and Drug Abuse Patient Records regulations: The Federal rules restrict any use of the information to criminally investigate or prosecute any alcohol or drug abuse patient.[facility] the event this information is protected by the Federal Confidentiality of Alcohol and Drug Abuse Patient Records regulations: The Federal rules restrict any use of the information to criminally investigate or prosecute any alcohol or drug abuse patient.[facility] the event this information is protected by the Federal Confidentiality of Alcohol and Drug Abuse Patient Records regulations: The Federal rules restrict any use of the information to criminally investigate or prosecute any alcohol or drug abuse patient.[facility] the event this information is protected by the Federal Confidentiality of Alcohol and Drug Abuse Patient Records regulations: The Federal rules restrict any use of the information to criminally investigate or prosecute any alcohol or drug abuse patient.[facility] the event this information is protected by the Federal Confidentiality of Alcohol and Drug Abuse Patient Records regulations: The Federal rules restrict any use of the information to criminally investigate or prosecute any alcohol or drug abuse patient.[facility] the event this information is protected by the Federal Confidentiality of Alcohol and Drug Abuse Patient Records regulations: The Federal rules restrict any use of the information to criminally investigate or prosecute any alcohol or drug abuse patient.[facility] the event this information is protected by the Federal Confidentiality of Alcohol and Drug Abuse Patient Records regulations: The Federal rules restrict any use of the information to criminally investigate or prosecute any alcohol or drug abuse patient.[facility] the event this information is protected by the Federal Confidentiality of Alcohol and Drug Abuse Patient Records regulations: The Federal rules restrict any use of the information to criminally investigate or prosecute any alcohol or drug abuse patient.[facility] Care Teams (unrecognized sec tion and content) Repairer [employer] Furniture Relationship Specialty Start Date End Date Evelin Gold MD [address] [place] [address] PCP - General Family Medicine 11/26/22 FOR [...] BE BASED ON THE PRIMARY CLINICAL RECORDS. [employer] [facility]. provides no warranty or guarantee of the accuracy or completeness of information in this document.
--- NOTE | 2024-02-24 12:12 | ED_ITS ---
HPI HPI - General Adult General Chief complaint: Nausea/Vomiting/Diarrhea Stated complaint: URTI COMPLAINTS/ SHORTNESS OF BREATH Time Seen by Provider: 02/24/24 09:41 Source: patient Mode of arrival: walk-in Limitations: no limitations History of Present Illness HPI narrative: 23-year-old female with history of asthma to the emergency department chief complaint of nasal congestion, sore throat, cough. She reports that she has had some mild wheezing. She reports that the drainage and coughing has made her vomit once. She denies . Does not usually use any medications for as thma. No hospitalizations for asthma. She denies any fever, sweats, chills. She denies any chest pain or shortness of breath. Related Data Home Medications ?Medication ?Instructions ?Recorded ?Confirmed hydroxyzine HCl 25 mg tablet 25 mg PO Q8H PRN anxiety 06/27/23 02/24/24 methimazole 5 mg tablet 5 mg PO DAILY 06/27/23 02/24/24 norgestimate 0.25 mg-ethinyl 1 tab PO DAILY 10/10/23 02/24/24 estradiol 35 mcg tablet propranolol 60 mg capsule,24 60 mg PO Q24H 10/10/23 02/24/24 hr,extended release Previous Rx's ?Medication ?Instructions ?Recorded albuterol sulfate 90 mcg/actuation 2 inh inhalation Q4H PRN shortness 02/24/24 aerosol inhaler (Ventolin HFA) of breath or wheezing #8.5 grams bdezmycvlruolxv-ixkqlbuweemaxus-OF 5 ml PO Q4H PRN cold symptoms #118 02/24/24 2 mg-30 mg-10 mg/5 mL oral syrup mL (Bromfed DM) ondansetron 4 mg disintegrating 4 mg PO Q8H PRN nausea and 02/24/24 tablet vomiting 4 days #16 tabs prednisone 20 mg tablet 40 mg (2 x 20 mg) PO DAILY 5 days 02/24/24 #10 tabs Allergies Allergy/AdvReac Type Severity Reaction Status Date / Time No Known Drug Allergies Allergy Verified 10/10/23 06:35 Opioid HPI Opioid Management Most Recent Opioid Data: No Data to Display Review of Systems ROS Status of ROS 10 or more systems reviewed and unremark able except as noted in history and below [facility] Medical History (Updated 02/24/24 @ 09:47 by Kareem Maloney MD) Graves disease ?E05.00 - Thyrotoxicosis with diffuse goiter without thyrotoxic crisis or storm (ICD-10) Social History Smoking status: Never smoker Exam Narrative Exam Narrative: VITALS: I have reviewed the triage vital signs. GENERAL: Well developed, well appearing adult female in no acute distress. NEURO: Alert and oriented. Moves all extremities. Face is symmetric and expressive. EYES: PERRL. No scleral icterus or conjunctival injection. No discharge. HENT: Normocephalic, atraumatic. Hearing is grossly intact. Nasal congestion with clear discharge. Mild posterior pharyngeal erythema. Mucous membranes moist. NECK: No JVD. Patient moves neck without restriction. CARDIO: Rhythm regular. Normal rate. No murmur, rub, or gallop. Pulses equal bilaterally in the upper and lower extremity. No lower extremity edema. PULM: trace Wheezing. No conversational dyspnea. No splinting, stridor, or accessory muscle use. GI/: Abdomen is soft and non-tender. Normoactive bowel sounds. EXTREMITIES: Symmetric muscle bulk. No joint swelling. No clubbing, cyanosis, or deformity. SKIN: Warm and dry. Normal turgor. No rash or lesions appreciated. PSYCH: Mood, affect, and interaction is appropriate to the setting. Constitutional Vital Signs, click to edit/add: Last Vital Signs Temp 98.6 F 02/24/24 09:36 Pulse 78 02/24/24 09:36 Resp 18 02/24/24 09:36 BP 119/87 02/24/24 09:36 Pulse Ox 100 02/24/24 09:36 O2 Del Method Room Air 02/24/24 09:36 Course Vital Signs Vital signs: Vital Signs Temperature 98.6 F 02/24/24 09:36 Pulse Rate 78 02/24/24 09:36 Respiratory Rate 18 02/24/24 09:36 Blood Pressure 119/87 02/24/24 09:36 Pulse Oximetry 100 02/24/24 09:36 Oxygen Delivery Method Room Air 02/24/24 09:36 Temperature 98.6 F 02/24/24 09:36 Pulse Rate 78 02/24/24 09:36 Respiratory Rate 18 02/24/24 09:36 Blood Pressure 119/87 02/24/24 09:36 Pulse Oximetry 100 02/24/24 09:36 Oxygen Delivery Method Room Air 02/24/24 09:36 Medical Decision Making MDM Narrative Medical decision making narrative: Well-appearing 23-year-old female to the emergency department chief complaint of URI symptoms. Onset 3 days ago. Vital stable, the patient is afebrile. She does have some very trace wheezing on exam. No indication for antibiotics at this time. Symptomatic medications for home. Prednisone and albuterol for her mild asthma exacerbation. Bromfed for symptoms. Zofran for her nausea and vomiting. Return precautions were discussed. All questions were answered. The patient was discharged home [facility] DATA #[id number]: Appropriate Treatment for Patients with URI [x] The patient was diagnosed with upper respiratory infection and was not prescribed or dispensed an antibiotic. [[facility]ATIS[facility] PERFORMANCE] Medical Records Medical records reviewed: Yes I reviewed the patient's medical records Discharge Plan Discharge Stand Alone Forms: Portal Instructions Chief Complaint: Nausea/Vomiting/Diarrhea Clinical Impression: Asthma exacerbation, Upper respiratory infection Patient Disposition: Home, Self-Care Time of Disposition Decision: 09:47 Condition: Good Mode of Transportation: Private Vehicle Prescriptions / Home Meds: New prednisone 20 mg tablet 40 mg PO DAILY 5 Days Qty: 10 0RF ondansetron 4 mg tablet,disintegrating 4 mg PO Q8H PRN (Reason: nausea and vomiting) 4 Days Qty: 16 0RF albuterol sulfate [Ventolin HFA] 90 mcg/actuation HFA aerosol inhaler 2 inh inhalation Q4H PRN (Reason: shortness of breath or wheezing) Qty: 8.5 0RF ashpozhoehkhzhs-kaksmhivb-QB [Bromfed DM] 2-30-10 mg/5 mL syrup 5 ml PO Q4H PRN (Reason: cold symptoms) Qty: 118 0RF No Action norgestimate-ethinyl estradiol 0.25-35 mg-mcg tablet 1 tab PO DAILY propranolol 60 mg capsule,extended release 24 hr 60 mg PO Q24H hydroxyzine HCl 25 mg tablet 25 mg PO Q8H PRN (Reason: anxiety) methimazole 5 mg tablet 5 mg PO DAILY Print Language: Pashto Instructions: Upper Respiratory Infection (ED), Acute Bronchitis (ED) Additional Instructions: Call the office of your primary care doctor to arrange for follow-up within the above-stated timeframe. Your ED visit was focused on your acute issue and does not replace primary care. You should review your labs, imaging, and diagnoses from this ED visit with your primary care physician. There may be non-emergent/ incidental findings that need further evaluation. You should review your vital signs including blood pressure with your PCP. If you were prescribed medications you should discuss possible side-effects and drug interactions with your pharmacist. Call 911 or go to the nearest Emergency Department if you develop any new or worsening symptoms. Seek immediate medical attention if you develop: worsening shortness of breath, difficulty breathing, chest pain, nausea, vomiting, weakness, numbness, tingling, excessive sweating, loss of motion in your arms or legs, or any new or worsening symptoms. Referrals: DEON WOODALL [Primary Care Provider] - 1 week Discharge Date/Time: 02/24/24 10:23
== END 2024-02-24 10:23 | disposition home or self-care (01) ==
LOC: ER 10:07
PROVIDERS: Emergency Provider Student in an Organized Health Care Education/Training Program; PCP Nurse Practitioner Family
DX: J06.9 Acute upper respiratory infection, unspecified (principal); J45.901 Unspecified asthma with (acute) exacerbation
CPT/HCPCS: 99283

== ENCOUNTER 2024-10-26 11:30 | Emergency (ER) | payer BC, OTHER, SELFPAY ==
[2024-10-26 11:40] VITALS: BP 126/94; PULSE 64; TEMP 36.6; O2SAT 99; BMI 30.5
--- NOTE | 2024-10-26 11:57 | ED_ITS ---
HPI HPI - General Adult General Chief complaint: Nausea/Vomiting/Diarrhea Stated complaint: VOMITING, DIARRHEA, ABDOMINAL PAIN Time Seen by Provider: 10/26/24 11:37 Source: patient Mode of arrival: walk-in History of Present Illness HPI narrative: 24-year-old female presents to the emergency department for nausea vomiting and diarrhea. It started 2 days ago and she thinks it might be due to a medication, semaglutide, that she took an injection of the day it started. She has not been around any ill people. She has been on that medication previously but a different type and this was the first dose of this particular medication. No hematemesis or fever. Related Data Home Medications ?Medication ?Instructions ?Recorded ?Confirmed methimazole 5 mg tablet 5 mg PO DAILY 06/27/23 10/26/24 propranolol 60 mg capsule,24 60 mg PO Q24H 10/10/23 10/26/24 hr,extended release Previous Rx's ?Medication ?Instructions ?Recorded ondansetron 4 mg disintegrating 4 mg PO Q6H PRN nausea and 10/26/24 tablet vomiting #20 tabs Allergies Allergy/AdvReac Type Severity Reaction Status Date / Time No Known Drug Allergies Allergy Verified 10/26/24 11:40 Opioid HPI Opioid Management Most Recent Opioid Data: No Data to Display Review of Systems ROS Narrative A ten point review of systems is negative except as noted above. [facility] Medical History (Updated 10/26/24 @ 13:28 by Lonnie Russell MD) Graves disease ?E05.00 - Thyrotoxicosis with diffuse goiter without thyrotoxic crisis or storm (ICD-10) Social History Smoking status: Never smoker Little interest or pleasure in doing things: not at all Feeling down, depressed, or hopeless: not at all Exam Narrative Exam Narrative: Nurses note and vital signs reviewed and patient is not hypoxic. General: The patient appears well and in no apparent distress. Patient is resting comfortably on cart. Skin: Warm, dry, no pallor noted. There is no rash noted. Head: Normocephalic, atraumatic Eye: Normal conjunctiva, no drainage Ears, Nose, Mouth, and Throat: oral mucosa is moist. Nares patent. Cardiovascular: Regular Rate and Rhythm Respiratory: Patient is in no distress, no accessory muscle use, lungs are clear to auscultation, no wheezing, rales or rhonchi Back: non-tender GI: Soft and nontender Musculoskeletal: The patient has no evidence of calf tenderness, no pitting edema, symmetrical pulses noted bilaterally Neurological: A&O, normal speech Psychiatric: Cooperative Constitutional Vital Signs, click to edit/add: Last Vital Signs Temp 98 F 10/26/24 11:40 Pulse 64 10/26/24 11:40 Resp 16 10/26/24 11:40 BP 126/94 H 10/26/24 11:40 Pulse Ox 99 10/26/24 11:40 O2 Del Method Room Air 10/26/24 11:40 Course Vital Signs Vital signs: Vital Signs Temperature 98 F 10/26/24 11:40 Pulse Rate 64 10/26/24 11:40 Respiratory Rate 16 10/26/24 11:40 Blood Pressure 126/94 H 10/26/24 11:40 Pulse Oximetry 99 10/26/24 11:40 Oxygen Delivery Method Room Air 10/26/24 11:40 Temperature 98 F 10/26/24 11:40 Pulse Rate 64 10/26/24 11:40 Respiratory Rate 16 10/26/24 11:40 Blood Pressure 126/94 H 10/26/24 11:40 Pulse Oximetry 99 10/26/24 11:40 Oxygen Delivery Method Room Air 10/26/24 11:40 Medical Decision Making MDM Narrative Medical decision making narrative: Laboratory analysis is unremarkable. She is feeling improved with IV fluids and Zofran and she was given a prescription for Zofran. The possibility that this is due to the semaglutide is discussed with the patient. She will follow-up with her physician. Treatment diagnosis and follow-up were discussed thoroughly. Differential Diagnosis Differential Diagnosis: Dehydration, acute kidney injury, gastroenteritis, medication side effect Lab Data Lab results reviewed: Yes I reviewed the patient's lab results Labs: Lab Results 10/26/24 Range/Units 12:05 WBC 13.8 H (4.0-11.0) 10^3/uL RBC 5.30 (4.20-5.40) 10^6/uL Hgb 16.2 H (12.0-16.0) g/dL Hct 46.9 (36.0-48.0) % MCV 88.5 (81.0-99.0) fL MCH 30.6 (26.7-34.0) pg MCHC 34.5 (29.9-35.2) g/dL RDW 12.3 (11.0-15.0) % Plt Count 343 (150-450) 10^3/uL MPV 9.8 (9.5-13.5) fL Neut % (Auto) 80.7 H (43.0-75.0) % Lymph % (Auto) 13.5 L (20.5-60.0) % [place] % (Auto) 4.9 (1.7-12.0) % Eos % (Auto) 0.4 L (0.9-7.0) % Baso % (Auto) 0.3 (0.2-2.0) % Neut # (Auto) 11.1 H (1.4-6.5) 10^3/uL Lymph # (Auto) 1.9 (1.2-3.8) 10^3/uL [place] # (Auto) 0.7 (0.3-0.8) 10^3/uL Eos # (Auto) 0.1 (0.0-0.7) 10^3/uL Baso # (Auto) 0.0 (0.0-0.1) 10^3/uL Abs Immat Gran (auto) 0.03 (0.00-0.03) 10^3/uL Imm/Tot Granulo (auto) 0.2 (0.0-0.5) % Sodium 138 (136-145) mmol/L Potassium 3.2 L (3.5-5.1) mmol/L Chloride 101 (98-107) mmol/L Carbon Dioxide 24.1 (21.0-32.0) mmol/L Anion Gap 16.1 BUN 16.0 (7.0-18.0) mg/dL Creatinine 1.01 (0.55-1.02) mg/dL Est GFR ( Amer) >60 (>=60 mL/min/1.73m^2) Est GFR (Non-Af Amer) >60 (>=60 mL/min/1.73m^2) BUN/Creatinine Ratio 15.8 Glucose 85 (74-106) mg/dL Calcium 9.4 (8.5-10.1) mg/dL Serum HCG, Qual Negative (NEGATIVE) Discharge Plan Discharge Chief Complaint: Nausea/Vomiting/Diarrhea Clinical Impression: Nausea, vomiting, and diarrhea Patient Disposition: Home, Self-Care Time of Disposition Decision: 13:28 Condition: Good Mode of Transportation: Private Vehicle Prescriptions / Home Meds: New ondansetron 4 mg tablet,disintegrating 4 mg PO Q6H PRN (Reason: nausea and vomiting) Qty: 20 0RF No Action propranolol 60 mg capsule,extended release 24 hr 60 mg PO Q24H methimazole 5 mg tablet 5 mg PO DAILY Print Language: Slovak Instructions: Acute Nausea and Vomiting (ED), Acute Diarrhea (ED) Referrals: DEON WOODALL [Primary Care Provider] - 1 week
--- OUTSIDE RECORDS SUMMARY | 2024-10-26 11:59 | XMS_ITS | CCD ---
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 Comment on above: Performed By: #### C BC #### [facility] [address] [place] [address] Dr. Baron Chavira Hematocrit (Bld) [Volume fraction] 43.1 % Normal 36.0-48.0 [facility] Comment on above: Performed By: #### C BC #### [facility] [address] [place] [address] Dr. Baron Chavira Hemoglobin (Bld) [Mass/Vol] 14.3 g/dL Normal 12.0-16.0 [facility] Comment on above: Performed By: #### C BC #### [facility] [address] [place] [address] Dr. Baron Chavira IG # 0.02 10e3/ul Normal 0.00-0.03 [facility] Comment on above: Performed By: #### C BC #### [facility] [address] [place] [address] Dr. Baron Chavira IG % 0.2 % Normal 0.0-0.5 [facility] Comment on above: Performed By: #### C BC #### [facility] [address] [place] [address] Dr. Baron Chavira LYMPH # 2.3 103/ul Normal 1.2-3.8 [facility] Comment on above: Performed By: #### C BC #### [facility] [address] [place] [address] Dr. Baron Chavira Lymphocytes/100 WBC (Bld) 23.7 % Normal 20.5-60.0 [facility] Comment on above: Performed By: #### C BC #### [facility] [address] [place] [address] Dr. Baron Chavira MANUAL DIFF REQ NO Normal [facility] Comment on above: Performed By: #### C BC #### [facility] [address] [place] [address] Dr. Baron Chavira MCH (RBC) [Entitic mass] 28.4 pg Normal 26.7-34.0 [facility] Comment on above: Performed By: #### C BC #### [facility] [address] [place] [address] Dr. Baron Chavira MCHC (RBC) [Mass/Vol] 33.2 g/dL Normal 29.9-35.2 [facility] Comment on above: Performed By: #### C BC #### [facility] [address] [place] [address] Dr. Baron Chavira MCV (RBC) [Entitic vol] 85.7 fL Normal 81.0-99.0 [facility] Comment on above: Performed By: #### C BC #### [facility] [address] [place] [address] Dr. Baron Chavira MONO # 0.7 103/ul Normal 0.3-0.8 [facility] Comment on above: Performed By: #### C BC #### [facility] [address] [place] [address] Dr. Baron Chavira Monocytes/100 WBC (Bld) 7.2 % Normal 1.7-12.0 [facility] Comment on above: Performed By: #### C BC #### [facility] [address] [place] [address] Dr. Baron Chavira NEUT # 6.5 103/ul Normal 1.4-6.5 [facility] Comment on above: Performed By: #### C BC #### [facility] [address] [place] [address] Dr. Baron Chavira Neutrophils/100 WBC (Bld) 67.2 % Normal 43.0-75.0 [facility] Comment on above: Performed By: #### C BC #### [facility] [address] [place] [address] Dr. Baron Chavira Platelet mean volume (Bld) [Entitic vol] 10.1 fL Normal 9.5-13.5 [facility] Comment on above: Performed By: #### C BC #### [facility] [address] [place] [address] Dr. Baron Chavira PLT 265 103/ul Normal 150-450 [facility] Comment on above: Performed By: #### C BC #### [facility] [address] [place] [address] Dr. Baron Chavira RBC 5.03 106/ul Normal 4.20-5.40 [facility] Comment on above: Performed By: #### C BC #### [facility] [address] [place] [address] Dr. Baron Chavira WBC 9.7 103/ul Normal 4.0-11.0 [facility] Comment on above: Performed By: #### C BC #### [facility] [address] [place] [address] Dr. Baron Chavira LIPASEon 11-23-2022 Lipase [Catalytic activity/Vol] 120.0 U/L Normal 73.0-393.0 [facility] Comment on above: Performed By: #### A MY, LIPA, CMP #### [facility] [address] [place] [address] Dr. Baron Chavira PROF 14(COMP METB)on 023 Albumin [Mass/Vol] 3.1 g/dL Critically low 3.4-5.0 [facility] e [facility] Comment on above: Performed By: #### A MY, LIPA, CMP #### [facility] [address] [place] [address] Dr. Baron Chavira Albumin/Globulin [Mass ratio] 0.8 {ratio} Normal [facility] Comment on above: Performed By: #### A MY, LIPA, CMP #### [facility] [address] [place] [address] Dr. Baron Chavira ALP [Catalytic activity/Vol] 75 U/L Normal 46-116 [facility] Comment on above: Performed By: #### A MY, LIPA, CMP #### [facility] [address] [place] [address] Dr. Baron Chavira ALT [Catalytic activity/Vol] 20 U/L Normal 14-59 [facility] Comment on above: Performed By: #### A MY, LIPA, CMP #### [facility] [address] [place] [address] Dr. Baron Chavira Anion gap [Moles/Vol] 11.7 mmol/L Normal [facility] Comment on above: Performed By: #### A MY, LIPA, CMP #### [facility] [address] [place] [address] Dr. Baron Chavira AST [Catalytic activity/Vol] 16 U/L Normal 15-37 [facility] Comment on above: Performed By: #### A MY, LIPA, CMP #### [facility] [address] [place] [address] Dr. Baron Chavira Bilirubin [Mass/Vol] 0.3 mg/dL Normal 0.2-1.0 [facility] Comment on above: Performed By: #### A MY, LIPA, CMP #### [facility] [address] [place] [address] Dr. Baron Chavira Calcium [Mass/Vol] 8.7 mg/dL Normal 8.5-10.1 [facility] Comment on above: Performed By: #### A MY, LIPA, CMP #### [facility] [address] [place] [address] Dr. Baron Chavira Chloride [Moles/Vol] 106 mmol/L Normal 98-107 [facility] Comment on above: Performed By: #### A MY, LIPA, CMP #### [facility] [address] [place] [address] Dr. Baron Chavira CO2 [Moles/Vol] 26.8 mmol/L Normal 21.0-32.0 [facility] Comment on above: Performed By: #### A SVETLANA LIPA, CMP #### [facility] [address] [address] [address] Baron Chavira Creatinine [Mass/Vol] 0.72 mg/dL Normal 0.55-1.02 [facility] Comment on above: Performed By: #### A SVETLANA LIPA, CMP #### [facility] [address] [address] [address] Baron Chavira EGFR-AF KAZAKH >60 Normal >=60 [facility] Comment on above: Performed By: #### A SVETLANA LIPA, CMP #### [facility] [address] [address] [address] Baron Chavira EGFR-NON AF KAZAKH >60 Normal >=60 [facility] Comment on above: Performed By: #### A SVETLANA LIPA, CMP #### [facility] [address] [address] [address] Baron Chavira Globulin (S) [Mass/Vol] 3.7 g/dL Normal [facility] Comment on above: Performed By: #### A SVETLANA LIPA, CMP #### [facility] [address] [address] [address] Baron Chavira Glucose [Mass/Vol] 92 mg/dL Normal 74-106 [facility] Comment on above: Performed By: #### A SVETLANA LIPA, CMP #### [facility] [address] [address] [address] Baron Chavira Potassium [Moles/Vol] 3.5 mmol/L Normal 3.5-5.1 [facility] Comment on above: Performed By: #### A SVETLANA LIPA, CMP #### [facility] [address] [address] [address] Baron Chavira Protein [Mass/Vol] 6.8 g/dL Normal 6.4-8.2 [facility] Comment on above: Performed By: #### A MY, LIPA, CMP #### [facility] [address], [place] [address] Dr. Baron Chavira Sodium [Moles/Vol] 141 mmol/L Normal 136-145 [facility] Comment on above: Performed By: #### A MY LIPA, CMP #### [facility] [address], [place] [address] Dr. Baron Chavira Urea nitrogen [Mass/Vol] 11.0 mg/dL Normal 7.0-18.0 [facility] Comment on above: Performed By: #### A MY, LIPA, CMP #### [facility] [address], [place] [address] Dr. Baron Chavira Urea nitrogen/Creatinine [Mass ratio] 15.3 mg/mg Normal [facility] Comment on above: Performed By: #### A MY LIPA, CMP #### [facility] [address], [place] [address] Dr. Baron Chavira US Pelvic, Transabdominalon 06-04-2022 [...] by Silvino Dillon on 06/05/2022 0658 Normal [facility] [employer] Board Certified Orthotist Covid-19 PCR (CVDTBH)on SARS-CoV-2 (COVID-19) RNA DEDE+probe Ql (Unsp spec) Not detected Normal NOT DETECTED [facility] Comment on above: Result Comment: When diagnostic [...] for this test is supported by the [employer] of Health and Human Service's declaration that [...] used). Performed By: #### C VDTBH #### [facility] [address] [place] [address] Dr. Baron Chavira GROUP A STREP CULTUREon S. pyogenes Ag Ql (Unsp spec) Culture Observations: NEGATIVE FOR GROUP A STREPTOCOCCUS. Normal [facility] Comment on above: Performed By: #### S SCRN, GRASTCX #### [facility] [address] [place] [address] Dr. Baron Chavira INFLUENZA A AND B AGon 12-20 INFLUANEGH SEE BELOW Normal [facility] Comment on above: Result Comment: Nega tive for Flu A protein angiten. Infection due to Flu A cannot be ruled out. Flu A angiten in the sample may be below the detection limit of the test. Performed By: #### I NFLUAB #### [facility] [address] [place] [address] Dr. aBron Chavira INFLUBNEG SEE BELOW Normal [facility] Comment on above: Result Comment: Nega tive for Flu B protein antigen. Infection due to Flu B cannot be ruled out. Flu B antigen in the sample may be below the detection limit of the test. Performed By: #### I NFLUAB #### [facility] [address] [place] [address] Dr. Baron Chavira INFLUENZA A AG Negative Normal NEGATIVE SEE COMMENT [facility] Comment on above: Performed By: #### I NFLUAB #### [facility] [address] [place] [address] Dr. Baron Chavira INFLUENZA B AG Negative Normal NEGATIVE SEE COMMENT [facility] Comment on above: Performed By: #### I NFLUAB #### [facility] [address], [place] [address] Dr. Baron Chavira INTERNAL CONTROLS Within Normal Limits Normal Wi thin Normal Limits [facility] Comment on above: Performed By: #### I NFLUAB #### [facility] [address], [place] [address] Dr. Baron Chavira STREPT SCREENon 12-20-2021 STREP SCREEN A Negative Normal NEGATIVE [facility] Comment on above: Performed By: #### S SCRN, GRASTCX #### [facility] [address], [place] [address] Dr. Baron Chavira Quick Fluon 11-09-2021 FLUAV Ab CF (S) [Titer] Negative [employer] Other FLUBV Ab CF (S) [Titer] Negative [employer] Other [place] Thyroidon 08-02-2021 [place] Thyroid HISTORY: [...] by Silvino Dillon on 08/02/2021 1448 Normal [facility] Specialist Vital Signs Date Time Vital Sign Value Performing Clinician Facility 08-18-2024 14:33-0500 Body mass index (BMI) [Ratio] 32.01 kg/m2 Radha George [facility] Work Phone: [facility] 08-18-2024 14:33-0500 Body temperature 97.5 [degF] Radha George [facility] Work Phone: [facility] 08-18-2024 14:33-0500 Body weight 79.38 kg Radha Hoffmanntrick [facility] Work Phone: [facility] 08-18-2024 14:33-0500 Diastolic blood pressure 74 mm[Hg] Rdaha George [facility] Work Phone: [facility] 08-18-2024 14:33-0500 Systolic blood pressure 122 mm[Hg] Radha Barrettk [facility] Work Phone: [facility] 06-22-2024 11:06-0500 Body mass index (BMI) [Ratio] 32.13 kg/m2 Chani Coles MD Work Phone: [facility] 06-22-2024 11:06-0500 Body weight 80.4 kg Chani Coles MD Work Phone: [facility] 06-22-2024 11:06-0500 Diastolic blood pressure 65 mm[Hg] Chani Coles MD Work Phone: [facility] 06-22-2024 11:06-0500 Heart rate 62 /min Chani Coles MD Work Phone: [facility] 06-22-2024 11:06-0500 Systolic blood pressure 122 mm[Hg] Chani Coles MD Work Phone: [facility] 05-04-2024 16:01-0400 Body mass index (BMI) [Ratio] 32.37 kg/m2 Radha George [facility] Work Phone: [facility] 05-04-2024 16:01-0400 Body temperature 97.39 [degF] Radha George [facility] Work Phone: [facility] 05-04-2024 16:01-0400 Body weight 80.29 kg Radha George [facility] Work Phone: [facility] 05-04-2024 16:01-0400 Diastolic blood pressure 74 mm[Hg] Radha George [facility] Work Phone: [facility] 05-04-2024 16:01-0400 Systolic blood pressure 118 mm[Hg] Radha George [facility] Work Phone: [facility] 04-07-2024 09:57-0400 Body mass index (BMI) [Ratio] 31.75 kg/m2 Radha George [facility] Work Phone: [facility] 04-07-2024 09:57-0400 Body temperature 97.39 [degF] Radha George [facility] Work Phone: [facility] 04-07-2024 09:57-0400 Body weight 78.74 kg Radha George [facility] Work Phone: [facility] 04-07-2024 09:57-0400 Diastolic blood pressure 74 mm[Hg] Radha George [facility] Work Phone: [facility] 04-07-2024 09:57-0400 Systolic blood pressure 116 mm[Hg] Radha George [facility] Work Phone: [facility] 12-30-2023 09:13-0400 Body mass index (BMI) [Ratio] 30.27 kg/m2 Chani Coles MD Work Phone: [facility] 12-30-2023 09:13-0400 Body weight 75.75 kg Chani Coles MD Work Phone: [facility] 12-30-2023 09:13-0400 Diastolic blood pressure 64 mm[Hg] Chani Coles MD Work Phone: [facility] 12-30-2023 09:13-0400 Heart rate 70 /min Chani Coles MD Work Phone: [facility] 12-30-2023 09:13-0400 Systolic blood pressure 127 mm[Hg] Chani Coles MD Work Phone: [facility] 07-01-2023 09:33-0500 Body height 158.2 cm Chani Coles MD Work Phone: [facility] 07-01-2023 09:33-0500 Body weight 70.31 kg Chani Coles MD Work Phone: [facility] 07-01-2023 09:33-0500 Diastolic blood pressure 76 mm[Hg] Chani Coles MD Work Phone: [facility] 07-01-2023 09:33-0500 Heart rate 98 /min Chani Coles MD Work Phone: [facility] 07-01-2023 09:33-0500 Systolic blood pressure 147 mm[Hg] Chani Coles MD Work Phone: [facility] 11-09-2021 16:20-0400 Body height 157.48 cm Tari Carmona Other [employer] Other 11-09-2021 16:20-0400 Body mass index (BMI) [Ratio] 31.64 kg/m2 Tari Carmona Other [employer] Other 11-09-2021 16:20-0400 Body temperature 98 [degF] Tari Carmona Other [employer] Other 11-09-2021 16:20-0400 Body weight 78.47 kg Tari Carmona Other [employer] Other 11-09-2021 16:20-0400 Respiratory rate 18 /min Tari Carmona Other [employer] Other 11-09-2021 16:20-0400 SaO2% (BldA) [Mass fraction] 97 % Tari Carmona Other [employer] Other Encounters Encounter Date Encounter Type Care Provider Facility Start: 10-25-2024 End: 10-25-2024 ambulatory Chani Coles MD Work Phone: Endocrinology Comment on above: nausea Start: 10-21-2024 End: 10-22-2024 Refill Chani Coles MD Work Phone: Endocrinology Comment on above: Refill Request Start: 10-06-2024 End: 10-06-2024 ambulatory Chani Coles MD Work Phone: Endocrinology Comment on above: blood work Start: 09-16-2024 End: 09-16-2024 Refill Chani Coles MD Work Phone: Endocrinology Comment on above: Refill Request Start: 09-16-2024 End: 09-16-2024 Refill Chani Coles MD Work Phone: Endocrinology Comment on above: Refill Request Start: 08-18-2024 End: 08-18-2024 ambulatory RADHA GEORGE Not Available Start: 08-18-2024 End: 08-18-2024 Office outpatient visit 25 minutes Radha George NP Work Phone: [facility] Comment on above: Influenza A (Primary Dx); Pain of toe, unspecified laterality; Right foot pain; Wheezing Start: 08-18-2024 End: 08-18-2024 ambulatory RADHA GEORGE Not Available Start: 08-17-2024 End: 08-17-2024 Emergency department patient visit EVELIN Pyle MAO [facility] Start: 08-07-2024 End: 08-09-2024 Refill Chani Coles MD Work Phone: Endocrinology Comment on above: Refill Request Start: 07-28-2024 End: 07-28-2024 ambulatory Chani Coles MD Work Phone: Endocrinology Comment on above: medication Start: 07-07-2024 End: 07-07-2024 Refill Chani Coles MD Work Phone: Endocrinology Comment on above: Refill Request Start: 06-22-2024 End: 06-22-2024 ambulatory CHANI COLES Facility:[facility] Start: 06-22-2024 End: 06-22-2024 Patient encounter procedure Chani Coles MD Work Phone: Endocrinology Comment on above: Hyperthyroidism (Sonia christiano Dx); Graves disease; 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 Start: 05-04-2024 End: 05-04-2024 Office outpatient visit 25 minutes Radha George [facility] Work Phone: [facility] Comment on above: Insomnia, unspecifie d type (Primary Dx); Major depressive disorder, single episode, moderate (HCC) (CMS/HCC); Anxiety; Graves disease (CMS/HCC) Start: 05-04-2024 End: 05-04-2024 ambulatory RADHA GEORGE Not Available Start: 05-04-2024 End: 05-04-2024 Bamboo flowsheet Radha George [facility] Work Phone: [facility] Start: 05-04-2024 End: 05-04-2024 Bamboo flowsheet Radha George [facility] Work Phone: [facility] Start: 04-30-2024 End: 04-30-2024 Telephone encounter Chani Coles MD Work Phone: Endocrinology Comment on above: Results Start: 04-15-2024 End: 04-15-2024 Telephone encounter Britney Garland [facility] Comment on above: Results Start: 04-13-2024 End: 04-13-2024 ambulatory RADHA Anam GEORGE Not Available Start: 04-07-2024 End: 04-07-2024 Bamboo flowsheet Radha A George [facility] Work Phone: [facility] Start: 04-07-2024 End: 04-07-2024 Bamboo flowsheet Radha A George [facility] Work Phone: [facility] Start: 04-07-2024 End: 04-07-2024 Office outpatient visit 25 minutes Radha A George [facility] Work Phone: [facility] Comment on above: Enlarged thyroid (CM S/HCC) (Primary Dx); Graves disease (CMS/HCC); Major depressive disorder, single episode, moderate (HCC) (CMS/HCC) Start: 04-07-2024 End: 04-07-2024 ambulatory RADHA WARDPATRICK Not Available Start: 03-30-2024 End: 03-31-2024 ambulatory Chani Coles MD Work Phone: Endocrinology Comment on above: vitamins Start: 03-22-2024 End: 03-24-2024 ambulatory Chani Coles MD Work Phone: Endocrinology Comment on above: blood work Start: 12-30-2023 End: 12-30-2023 ambulatory CHANI COLES Facility:[facility] Start: 12-30-2023 End: 12-30-2023 Patient encounter procedure [...] m caregiver Chani Coles MD Work Phone: [facility] Start: 10-09-2023 Telephone encounter Chani prasad MD Work Phone: Endocrinology Comment on above: Outside Lab Results Start: 10-06-2023 ambulatory Chani Coles MD Work Phone: Endocrinology Comment on above: blood results Start: 09-20-2023 ambulatory Chani Coles MD Work Phone: Endocrinology Comment on above: blood work Refill Request Start: 08-26-2023 End: 08-26-2023 ambulatory DEON STEINBERG Not Available Start: 08-26-2023 Chart abstracting Deon Steinberg [facility] Work Phone: [facility] Start: 07-31-2023 ambulatory Chani Coles MD Work Phone: Endocrinology Comment on above: Thyroid Start: 07-31-2023 E-mail encounter fro m caregiver Chani Coles MD Work Phone: [facility] Start: 07-01-2023 Telephone encounter Chani prasad MD Work Phone: Endocrinology Comment on above: Request for Clinical Notes (Chart notes Request) Start: 07-01-2023 End: 07-01-2023 Patient encounter procedure Chani Coles MD Work Phone: Endocrinology Comment on above: Hyperthyroidism (Sonia christiano Dx) Start: 01-30-2023 End: 01-30-2023 Emergency department patient visit Deon Steinberg Facility:[facility] Start: 11-23-2022 End: 11-23-[address] AVINASH CARRANZA . Facility:[facility] Start: 12-20-2021 End: 12-20-2021 ambulatory YULIANA NORMAN . Facility:[facility] Start: 11-09-2021 End: 11-09-2021 ambulatory Tari Carmona Other [employer] Other Start: 11-09-2021 Office outpatient vi sit 15 minutes Tari Carmona [facility] Procedures Date Procedure Procedure Detail Performing Clinician Start: 08-18-2024 STATUS COVID-19/FLU Chr isty A Doris [facility] Work Phone: Start: 11-10-2023 TSH BLOOD (EU,FV,HL,NAREN,MM,SP) [facility] Provider Start: 10-02-2023 Thyrotropin [Units/volume] in Serum or Plasma [facility] Provider Start: 10-02-2023 TSH BLOOD (EU,FV,HL,NAREN,MM,SP) [facility] Provider Plan of Treatment Date Care Activity Detail Author Start: 01-30-2033 Urine microalbumin profile DTaP,Tdap,Td Vaccine (8 - Td or Tdap) [facility] Start: 12-21-2024 End: 12-21-2024 Patient encounter procedure 12/21/2024 11:10 AM EDT Office Visit Endocrinology [address] [place] [address] Chani Coles MD [address] [id number] 6 months (around 12/21/2024) for graves, obesity Endocrinology Comment on above: 6 months (around 12/21/2024) for graves, o besity Start: 12-21-2024 End: 12-21-2024 Patient encounter procedure Endocrinology Comment on above: 6 months (around 12/21/2024) for graves, o besity Start: 08-18-2024 End: 08-18-2025 XR Foot - right 3 Views XR foot 3+ views right Imaging Routine Right foot pain Expected: 08/18/2024, Expires: 08/18/2025 [facility] Work Phone: Comment on above: Expected: 08/18/2024, Expires: Start: 06-22-2024 End: 06-22-2024 Patient encounter procedure 06/22/2024 11:40 AM EST Office Visit Endocrinology [id number] [place] [address] Chani Coles MD [address] [place] [address] 6m follow up Endocrinology Comment on above: 6m follow up Start: 06-02-2024 Influenza vaccination Influenza Vaccine (#1) [facility] Comment on above: Postponed from 03/21/2024 (Patient Refus ed) Start: 05-04-2024 End: 05-04-2024 Patient encounter procedure 05/04/2024 4:00 PM EDT Office Visit [facility] [address] [place] [id number] Radha George NP [address] [place] [address] Arrived [facility] Comment on above: Arrived Start: 04-07-2024 End: 04-07-2025 US Thyroid gland US thyroid Imaging Routine Enlarged thyroid (CMS/HCC) Expected: 04/07/2024, Expires: 04/07/2025 [facility] Work Phone: Comment on above: Expected: 04/07/2024, Expires: Start: 04-07-2024 End: 04-07-2024 Patient encounter procedure 04/07/2024 10:00 AM EDT Office Visit [facility] [address] [place] [address] Radha George NP [address] [place] [address] Arrived [facility] Comment on above: Arrived Start: 03-24-2024 End: 06-23-2024 THYROID STIMULATING IMMUNOGLOBULIN BLOOD THYROID STIMULATING IMMUNOGLOBULIN BLOOD Lab Routine Hyperthyroidism Expected: 03/24/2024 (Approximate), Expires: 06/23/2024 [facility] Comment on above: Expected: 03/24/2024 (Approximate), Expi res: 06/23/2024 Start: 03-24-2024 End: 06-23-2024 Thyrotropin [Units/volume] in Serum or Plasma THYROID STIMULATING HORMONE Lab Routine Hyperthyroidism Expected: 03/24/2024 (Approximate), Expires: 06/23/2024 [facility] Work Phone: Comment on above: Expected: 03/24/2024 (Approximate), Expi res: 06/23/2024 Start: 03-24-2024 End: 06-23-2024 Thyroxine (T4) free [Mass/volume] in Serum or Plasma T4 FREE/FREE THYROXINE Lab Routine Hyperthyroidism Expected: 03/24/2024 (Approximate), Expires: 06/23/2024 [facility] Comment on above: Expected: 03/24/2024 (Approximate), Expi res: 06/23/2024 Start: 03-24-2024 End: 06-23-2024 Triiodothyronine (T3) Free [Mass/volume] in Serum or Plasma T3, FREE Lab Routine Hyperthyroidism Expected: 03/24/2024 (Approximate), Expires: 06/23/2024 [facility] Comment on above: Expected: 03/24/2024 (Approximate), Expi res: 06/23/2024 Start: 03-21-2024 Covid-19 Vaccine ( season) Covid-19 Vaccine () [facility] Start: 03-21-2024 Covid-19 Vaccine () Covid-19 Vaccine ( season) [facility] Start: 03-21-2024 Influenza vaccination [facility] Start: 01-18-2024 Influenza vaccination Influenza Vaccine (#1) [facility] Comment on above: Postponed from 03/21/2023 (Patient Refus ed) Start: 12-30-2023 End: 12-30-2023 Patient encounter procedure 12/30/2023 9:40 AM EDT Office Visit Endocrinology [address] [place] [address] Chani Coles MD [address] [place] [address] 6 month follow up Endocrinology Comment on above: 6 month follow up Start: 12-10-2023 End: 12-10-2023 Patient encounter procedure 12/10/2023 2:00 PM EDT Office Visit [facility] [address] [id number] Driss Hartman MD [address] [place] [address] Graves' eye disease [E05.00] Ophthalmology Comment on above: Graves' eye disease [E05.00] Start: 08-26-2023 End: 08-26-2023 Patient encounter procedure 08/26/2023 4:00 PM EST Office Visit [facility] [address] [place] [address] Deon Steinberg NP [address], [place] [id number] [facility] Start: 03-21-2023 Covid-19 Vaccine ( season) Covid-19 Vaccine ( season) [facility] Start: 03-21-2023 Influenza vaccination Influenza Vaccine (#1) [facility] Start: 2022 Screening for malignant neoplasm of cervix [facility] Start: 10-18-2019 Annual PCP Team Chronic Disease Visit Annual PCP Team Chronic Disease Visit [facility] Start: 10-18-2019 GC (Gonorrhea) Screening (18-24) GC (Gonorrhea) Screening (18-24) [facility] Start: 10-18-2019 Hepatitis C screening Hepatitis C Screening [facility] Start: 10-18-2019 HIV screening HIV Screening [facility] Start: 10-18-2019 Screening for Chlamydia trachomatis Chlamydia Screening (18-24) [facility] Start: 2017 Meningococcal B Vaccine (1 of 2 - Standard) Meningococcal B Vaccine (1 of 2 - Standard) [facility] Start: 2017 Meningococcal B Vaccine: Consider Based On Risk (1 of 2 - Patient Seeks Protection) Meningococcal B Vaccine: Consider Based On Risk (1 of 2 - Patient Seeks Protection) [facility] Start: 2016 HPV Vaccine (1 - 3-dose series) HPV Vaccine (1 - 3-dose series) [facility] Start: 10-18-2015 Peds To Adult Transition Annual Assessment Peds To Adult Transition Annual Assessment [facility] Start: 2013 Peds To Adult Transition Initial Discussion Peds To Adult Transition Initial Discussion [facility] Start: 2010 HPV Vaccine (1 - 2-dose series) HPV Vaccine (1 - 2-dose series) [facility] Immunizations Immunization Date Immunization Notes Care Provider [facility] 01-30-2023 tetanus toxoid, redu tete diphtheria toxoid, and acellular pertussis vaccine, adsorbed Chani Coles MD Work Phone: [facility] Work Phone: 01-03-2021 COVID-19 original vaccine, full dose, monovalent (MODERNA) Chani Coles MD Work Phone: [facility] Work Phone: 12-06-2020 COVID-19 original vaccine, full dose, monovalent (MODERNA) Chani Coles MD Work Phone: [facility] Work Phone: 03-02-2019 meningococcal polysaccharide (groups A, C, Y and W-135) diphtheria toxoid conjugate vaccine (MCV4P) Chani Coles MD Work Phone: [facility] Work Phone: 08-07-2017 influenza, injectabl e, quadrivalent, preservative free Chani Coles MD Work Phone: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 the last 12 months IGF: None on file in the last 12 months Prolactin: None on file in the last 12 months [facility] 07-07-2024 Miscellaneous Notes Images from the original note were not included. Rx sent to a different pharmacy with a year of refills 12/2023. Most recent Endocrinology visit: Last encounter Visit on 06/22/2024 (with Chani Coles) 07/01/2023 in ENDO MAIN with CHANI COLES for Hyperthyroidism 12/30/2023 in ENDO MAIN with CHANI COLES for Hyperthyroidism 06/22/2024 in ENDO MAIN with CHANI COLES for Hyperthyroidism Upcoming Endocrinology Appointments - Next 365 Days Visit Type Date Time Department EST MANJULA PATIENT 12/21/2024 9:10 AM ENDO MAIN Requested Prescriptions Pending Prescriptions Disp Refills propranolol ER (INDERAL LA) 60 mg 24 hr capsule [Pharmacy Med Name: PROPRANOLOL ER 60 MG CAPSULE] 30 capsule 0 Sig: TAKE 1 CAPSULE BY MOUTH DAILY Hemoglobin A1c: None on file in the last 12 months Latest Ref Rng & Units 04/26/2024 12/10/2023 11/10/2023 TSH TSH mIU/L 2.74 2.46 TSH Bld 0.34 - 5.60 uIU/mL 1.30 This result is from an external source. Latest Ref Rng & Units 04/26/2024 12/10/2023 11/10/2023 FREE T3 T3 Free 2.3 - 4.2 pg/mL 3.0 Free T3 2.3 - 4.2 pg/mL 3.0 3.1 This result is from an external source. Latest Ref Rng & Units 04/26/2024 12/10/2023 11/10/2023 FREE T4 Free T4 0.8 - 1.8 ng/dL 1.3 1.1 1.2 This result is from an external source. Thyroglobulin: None on file in the last 12 months Vitamin D: None on file in the last 12 months Hematocrit: None on file in the last 12 months Creatinine: None on file in the last 12 months eGFR: None on file in the last 12 months Potassium: None on file in the last 12 months Testosterone: None on file in the last 12 months IGF: None on file in the last 12 months Prolactin: None on file in the last 12 months documented in this encounter [facility] 06-22-2024 Note HNO ID: [id number] Author: CHANI COLES MD Service: ? Author Type: Physician Type: Progress Notes Filed: 06/22/2024 13:07 Note Text: Answers submitted by the patient for this visit: Core Review of Systems (Submitted on 06/20/2024) Fever : No Night sweats: Yes Recent unintentional weight change: Yes Vision Disturbance: No A cough: No Difficulty Breathing?: No Chest pain: No Irregular heartbeat: No Leg Swelling: No Nausea: No Diarrhea: No Black tarry stools: No Difficulty Urinating?: No Awaken at Night More Than Once to Urinate?: No Joint pain or stiffness: No Muscle aches: No Leg or Foot Discomfort at Night?: No A rash: No Dizziness: No Headaches: No Memory Loss: No Seizures: No María Anaya is a 23 year old female who is presenting today June 22, 2024 for a Thyroid problem. Social History Tobacco Use Smoking status: Never Passive exposure: Never Smokeless tobacco: Never Substance Use Topics Alcohol use: Never Drug use: Never Reason for visit: Grave's Disease and Hyperthyroidism Previous laboratory results: TSH Date Value 04/26/2024 2.74 mIU/L 11/10/2023 2.46 IU/ml 10/02/2023 16.550 mIU/L 10/02/2023 16.55 IU/ml 07/23/2023 <0.01 IU/ml Free T4 Date Value 04/26/2024 1.3 ng/dL 12/10/2023 1.1 ng/dL 11/10/2023 1.2 ng/dL 10/02/2023 0.7 ng/ml FREE T4 (ng/dL) Date Value 10/02/2023 0.7 Free T3 Date Value 04/26/2024 3.0 pg/mL 11/10/2023 3.1 PG/Ml 10/02/2023 2.7 pg/ml TSI (IU/L) Date Value 07/01/2023 20.20 Subjective: Weight: increased, 22 Lb in past year; Energy: stable and OK has a personalized living assistant Moods: good Sleep: Restless and Terminal insomnia; Temp. Intolerance: Heat Intolerance Diaphoresis: Increased; Memory: Good Thyroid Pain: no; Mass Effect: None CV: No history of chest pain, palpitation, orthopnea, cyanosis, pedal edema; Resp: No cough, hemoptysis, asthma, recent chest infection, wheezing; GI: No blood in stool, pain with BM, tarry stool, persistent diarrhea or constipation; REPRODUCTIVE: cycle 28 days and flow 7 days on OCPs Eyes: No; Skin: Negative M/S: negative ; Neuro: negative Physical Exam BP 122/65 Pulse 62 Wt 80.4 kg (177 lb 4 oz) LMP 05/01/2023 (Approximate) BMI 32.13 kg/m? APPEARANCE: Well appearing, alert, in no acute distress, Obese EYES BRAD, extra occular movements normal, wearing corrective lens NECK Supple, no adenopathy; thyroid significantly enlarged HEART RRR with normal S1 and S2, no murmurs, no gallops, no JVD appreciated LUNGS clear to auscultation ABD central adiposity EXTREMITIES No deformities, No skin discoloration, and No edema NEURO Awake, alert and oriented x 3, Reflexes symmetrical, and Cranial nerves II-XII grossly intact SKIN Skin color, texture, turgor normal, no suspicious rashes or lesions Impression: This 23 yo woman is seen in follow-up for hyperthyroidism due to Graves disease. She is well controlled on methimazole 5 mg daily but is concerned about weight gain despite eating healthy and working out at a gym with a personalized living assistant. She would like to try pharmacotherapy. Recommendations: Continue methimazole 5 mg daily. Trial of metformin ER 500 mg bid. Return in 6 months. Chani Coles MD Endocrinology Staff [facility] 06-22-2024 History of Presen t illness Narrative Answers submitted by the patient for this visit: Core Review of Systems (Submitted on 06/20/2024) Fever : No Night sweats: Yes Recent unintentional weight change: Yes Vision Disturbance: No A cough: No Difficulty Breathing?: No Chest pain: No Irregular heartbeat: No Leg Swelling: No Nausea: No Diarrhea: No Black tarry stools: No Difficulty Urinating?: No Awaken at Night More Than Once to Urinate?: No Joint pain or stiffness: No Muscle aches: No Leg or Foot Discomfort at Night?: No A rash: No Dizziness: No Headaches: No Memory Loss: No Seizures: No María Anaya is a 23 year old female who is presenting today June 22, 2024 for a Thyroid problem. Social History Tobacco Use Smoking status: Never Passive exposure: Never Smokeless tobacco: Never Substance Use Topics Alcohol use: Never Drug use: Never Reason for visit: Grave's Disease and Hyperthyroidism Previous laboratory results: TSH Date Value 04/26/2024 2.74 mIU/L 11/10/2023 2.46 IU/ml 10/02/2023 16.550 mIU/L 10/02/2023 16.55 IU/ml 07/23/2023 <0.01 IU/ml Free T4 Date Value 04/26/2024 1.3 ng/dL 12/10/2023 1.1 ng/dL 11/10/2023 1.2 ng/dL 10/02/2023 0.7 ng/ml FREE T4 (ng/dL) Date Value 10/02/2023 0.7 Free T3 Date Value 04/26/2024 3.0 pg/mL 11/10/2023 3.1 PG/Ml 10/02/2023 2.7 pg/ml TSI (IU/L) Date Value 07/01/2023 20.20 Subjective: Weight: increased, 22 Lb in past year; Energy: stable and OK has a personalized living assistant Moods: good Sleep: Restless and Terminal insomnia; Temp. Intolerance: Heat Intolerance Diaphoresis: Increased; Memory: Good Thyroid Pain: no; Mass Effect: None CV: No history of chest pain, palpitation, orthopnea, cyanosis, pedal edema; Resp: No cough, hemoptysis, asthma, recent chest infection, wheezing; GI: No blood in stool, pain with BM, tarry stool, persistent diarrhea or constipation; REPRODUCTIVE: cycle 28 days and flow 7 days on OCPs Eyes: No; Skin: Negative M/S: negative ; Neuro: negative Physical Exam BP 122/65 Pulse 62 Wt 80.4 kg (177 lb 4 oz) LMP 05/01/2023 (Approximate) BMI 32.13 kg/m APPEARANCE: Well appearing, alert, in no acute distress, Obese EYES BRAD, extra occular movements normal, wearing corrective lens NECK Supple, no adenopathy; thyroid significantly enlarged HEART RRR with normal S1 and S2, no murmurs, no gallops, no JVD appreciated LUNGS clear to auscultation ABD central adiposity EXTREMITIES No deformities, No skin discoloration, and No edema NEURO Awake, alert and oriented x 3, Reflexes symmetrical, and Cranial nerves II-XII grossly intact SKIN Skin color, texture, turgor normal, no suspicious rashes or lesions Impression: This 23 yo woman is seen in follow-up for hyperthyroidism due to Graves disease. She is well controlled on methimazole 5 mg daily but is concerned about weight gain despite eating healthy and working out at a gym with a personalized living assistant. She would like to try pharmacotherapy. Recommendations: Continue methimazole 5 mg daily. Trial of metformin ER 500 mg bid. Return in 6 months. Chani Coles MD Endocrinology Staff documented in this encounter [facility] 06-22-2024 Instructions Brooke Jacobsen OCCA - 06/22/2024 10:58 AM EST Thank you for choosing the [facility] Department of Endocrinology, Diabetes and Metabolism. Did you know that you need to call 48 hours in advance of your scheduled visit, if you are unable to make your appointment? [facility] thanks you for your commitment, because patients not showing to their appointment results in a lost opportunity for patients to receive world class health care at the [facility]. To Cancel an appointment, please choose one of the following: - Call the Appointment Call Center at [phone] - From [facility], Go to Appointments - Cancel Appts If cancelling, consider your need to reschedule to prevent further delays in your care. To Schedule an appointment, please choose one of the following: - Call the Appointment Call Center at [phone] - From [facility], Go to Appointments - Request an Appt documented in this encounter [facility] 05-04-2024 History of Presen t illness Narrative Images from the original note were not included. María Anaya is a 23 y.o. female presents with chief complaint of Insomnia HPI: HPI Patient is present with c/o insomnia. Patient states she also has Grave's disease. She states that she has been waking up around 1AM most nights and will be awake on and off until about 6AM. Patient states this has been happening for about 2 months. She states she had reached out to her life skills coordinator volunteer who suggested that she see her PCP. Endo had informed patient that insomnia is sometimes a side effect of Grave's disease. SUBJECTIVE: MEDICATIONS: Current Outpatient Medications Medication Instructions hydrOXYzine HCl (ATARAX) 25 mg, Oral, Daily PRN methIMAzole (TAPAZOLE) 10 mg, Oral, Once, Patient takes a half a tablet once daily norgestimate-ethinyl estradiol (Sprintec 28) 0.25-35 MG-MCG tablet 1 tablet, Oral, Every morning propranolol LA (INDERAL LA) 60 mg, Oral, Daily RT I have reviewed and reconciled the history and medication list with the patient today. REVIEW OF SYMPTOMS: Review of Systems Constitutional: Negative for chills and fatigue. HENT: Negative for ear discharge, ear pain, rhinorrhea and sore throat. Eyes: Negative for pain and redness. Respiratory: Negative for cough and chest tightness. Cardiovascular: Negative for chest pain and palpitations. Gastrointestinal: Negative for abdominal distention and abdominal pain. Genitourinary: Negative for difficulty urinating and frequency. Musculoskeletal: Negative for arthralgias and gait problem. Skin: Negative. Neurological: Negative for dizziness and numbness. Endocrine: Negative. Allergic/Immunologic: Negative. OBJECTIVE: Visit Vitals Smoking Status Never Physical Exam Vitals reviewed. Cardiovascular: Rate and Rhythm: Normal rate and regular rhythm. Pulses: Normal pulses. Heart sounds: Normal heart sounds. Pulmonary: Effort: Pulmonary effort is normal. Breath sounds: Normal breath sounds. Abdominal: General: Abdomen is flat. Bowel sounds are normal. Palpations: Abdomen is soft. Musculoskeletal: General: Normal range of motion. Skin: General: Skin is warm and dry. Neurological: General: No focal deficit present. Mental Status: She is oriented to person, place, and time. ASSESSMENT AND PLAN: Assessment/Plan Diagnoses and all orders for this visit: Insomnia, unspecified type - Ambulatory referral to Sleep Studies; Future Major depressive disorder, single episode, moderate (HCC) (CMS/HCC)-stable Anxiety-stable Graves disease (CMS/HCC)-stable follows with endo. documented in this encounter [facility] 04-30-2024 Telephone encounter Note External lab results was received by fax and has been indexed. Melody Rod [facility] Work Phone: 04-30-2024 Miscellaneous Notes External lab results was received by fax and has been indexed. Melody Rod documented in this encounter [facility] 04-15-2024 Telephone encounter Note Patient called back and has questions. Please call at you convenience. Thank you! [facility] 04-15-2024 Miscellaneous Notes Patient called back and has questions. Please call at you convenience. Thank you! Lvm asking for pt to return call. ----- Message from Radha George sent at 04/15/2024 2:06 PM EDT ----- Let patient know her ultrasound showed a cyst on the inferior right lobe of thyroid and call and fax results to her endocronology. Thanks documented in this encounter [facility] 04-15-2024 Telephone encounter Note Lvm asking for pt to return call. [facility] 04-15-2024 Telephone encounter Note ----- Message from Radha Hoffmanntrick sent at 04/15/2024 2:06 PM EDT ----- Let patient know her ultrasound showed a cyst on the inferior right lobe of thyroid and call and fax results to her endocronology. Thanks [facility] 04-07-2024 History of Presen t illness Narrative Images from the original note were not included. María Anaya is a 23 y.o. female presents with chief complaint of No chief complaint on file. HPI: HPI Patient is present to discuss getting a thyroid US after being diagnosed with an enlarged thyroid by endocrinology. SUBJECTIVE: MEDICATIONS: Current Outpatient Medications Medication Instructions hydrOXYzine HCl (ATARAX) 25 mg, Oral, Daily PRN methIMAzole (TAPAZOLE) 10 mg, Oral, 2 times daily norgestimate-ethinyl estradiol (Sprintec 28) 0.25-35 MG-MCG tablet 1 tablet, Oral, Every morning propranolol LA (INDERAL LA) 60 mg, Oral, Daily RT I have reviewed and reconciled the history and medication list with the patient today. REVIEW OF SYMPTOMS: Review of Systems Constitutional: Negative for chills and fatigue. HENT: Negative for ear discharge, ear pain, rhinorrhea and sore throat. Patient having hard time swallowing Eyes: Negative for pain and redness. Respiratory: Negative for cough and chest tightness. Cardiovascular: Negative for chest pain and palpitations. Gastrointestinal: Negative for abdominal distention and abdominal pain. Genitourinary: Negative for difficulty urinating and frequency. Musculoskeletal: Negative for arthralgias and gait problem. Skin: Negative. Neurological: Negative for dizziness and numbness. Endocrine: Negative. Allergic/Immunologic: Negative. OBJECTIVE: Visit Vitals Smoking Status Never Physical Exam Vitals reviewed. Neck: Thyroid: Thyromegaly present. No thyroid mass or thyroid tenderness. Cardiovascular: Rate and Rhythm: Normal rate and regular rhythm. Pulses: Normal pulses. Heart sounds: Normal heart sounds. Pulmonary: Effort: Pulmonary effort is normal. Breath sounds: Normal breath sounds. Abdominal: General: Abdomen is flat. Bowel sounds are normal. Palpations: Abdomen is soft. Musculoskeletal: General: Normal range of motion. Cervical back: Edema present. Skin: General: Skin is warm and dry. Neurological: General: No focal deficit present. Mental Status: She is oriented to person, place, and time. ASSESSMENT AND PLAN: Assessment/Plan Diagnoses and all orders for this visit: Enlarged thyroid ([facility]) - US thyroid; Future Await results. [facility]. Patient has had hard time swallowing. Endo can not get her into their office until July 2024 Graves disease ([facility]) documented in this encounter [facility] 03-31-2024 Telephone encounter Note Vitamins are okay in reasonable amounts. One very important vitamin for immunity is Vitamin D. I suggest 2000 units daily. Chani Coles MD [facility] 03-31-2024 Miscellaneous Notes Vitamins are okay in reasonable amounts. One very important vitamin for immunity is Vitamin D. I suggest 2000 units daily. Chani Coles MD documented in this encounter [facility] 03-23-2024 Telephone encounter Note Pended labs to preferred lab ([facility]), please review and sign if you agree. Thank you, Tessy BAEZ, RN [facility] 03-23-2024 Miscellaneous Notes Pended labs to preferred lab ([facility]), please review and sign if you agree. Thank you, Tessy BAEZ, RN Endo [facility] documented in this encounter [facility] 12-30-2023 Note HNO ID: [id number] Author: CHANI COLES MD Service: ? Author [...] 6 months. Chani Coles MD Endocrinology Staff [facility] 12-30-2023 History of Presen t illness Narrative [...] MD Endocrinology Staff documented in this encounter [facility] 12-30-2023 Instructions Ramin Dunne MA - 12/30/2023 9:13 AM EDT Thank you for choosing the [facility] Department of Endocrinology, Diabetes and Metabolism. Did you know that you need to call 48 hours in advance of your scheduled visit, if you are unable to make your appointment? The [facility]inology [facility] Metabolism [facility] thanks you for your commitment, because patients not showing to their appointment results in a lost opportunity for patients to receive world class health care at the [facility]. To Cancel an appointment, please choose one of the following: - Call the Appointment Call Center at [phone] - From [facility], Go to Appointments - Cancel Appts If cancelling, consider your need to reschedule to prevent further delays in your care. To Schedule an appointment, please choose one of the following: - Call the Appointment Call Center at [phone] - From [facility], Go to Appointments - Request an Appt documented in this encounter [facility] 12-05-2023 Telephone encounter Note Mailed lab letter to patients home address on file. Akshat Koo Measurement Specialist II [facility]-F20 [facility] 12-05-2023 Miscellaneous Notes Mailed lab letter to patients home address on file. Akshat Koo Measurement Specialist II [facility]-F20 documented in this encounter [facility] 11-27-2023 Telephone encounter Note Requester: Pharmacy Patients [...] PSS NOTE: Patient needs scheduled appointment No [facility] 11-27-2023 Miscellaneous Notes Requester: Pharmacy Patients last [...] scheduled appointment No documented in this encounter [facility] 10-09-2023 Miscellaneous Notes Your thyroid is now low. Reduce methimazole to 1/2 tab daily. Chani Coles MD documented in this encounter [facility] 10-09-2023 Miscellaneous Notes Updated labs from (location) [facility]. Date labs collected 10/02/23. Date scanned in chart 10/09/23. Theresa Dsouza Measurement Specialist [facility], F20 documented in this encounter [facility] 09-22-2023 Miscellaneous Notes Sent patient letter for repeat thyroid labs. documented in this encounter [facility] 07-01-2023 Miscellaneous Notes Patient's external provider requested patient's most recent endocrinology office notes be faxed to them. Faxed office notes from visit date 07/01/2023 to DEON STEINBERG CNP [phone] Transmitted successfully. KEILY MCLAUGHLIN Measurement Specialist II Endocrinology & Metabolism [facility] X-20 documented in this encounter [facility] 07-01-2023 History of Presen t illness Narrative [...] 05, 2023 TSH <0.01, T3 353 (ref [id number]). Most likely Graves disease. Has mild eye signs despite patient denying eye symptoms. Recommendations: Lab today for free T3 and TSI. Increase methimazole dose to 10 mg bid. Add propranolol-ER- 120 mg for cardiac symptoms. RTN 6 months Lab letter given to the patient to have lab drawn in 3 weeks. Chani Coles MD Endocrinology Staff CC Deon Steinberg, KENNEL STAFF MEMBER documented in this encounter [facility] 07-01-2023 Instructions Ramin Dunne Ma - 07/01/2023 9:30 AM EST Thank you for choosing the [facility] Department of Endocrinology, Diabetes and Metabolism. Did you know that you need to call 48 hours in advance of your scheduled visit, if you are unable to make your appointment? The Endocrinology and Metabolism [facility] thanks you for your commitment, because patients not showing to their appointment results in a lost opportunity for patients to receive [facility] health care at the [facility]. To Cancel an appointment, please choose one of the following: - Call the Appointment Call Center at [phone] - From [facility], Go to Appointments - Cancel Appts If cancelling, consider your need to reschedule to prevent further delays in your care. To Schedule an appointment, please choose one of the following: - Call the Appointment Call Center at [phone] - From [facility], Go to Appointments - Request an Appt documented in this encounter [facility] 07-08-2022 Note PROCEDURE: Statz[place] VCT 64, 5 mm slice axial images [...] signed by Silvino Dillon on 07/09/2022 0731 [facility] [employer] Board Certified Orthotist 12-20-2021 Note PROCEDURE: XR CHEST 1 V [...] authenticated by: HARSHA HURST Date: 2021-12-20 20:47 [facility] 11-09-2021 Evaluation note Encounter Date Diagnosis Assessment Notes Oct, Contact with and (suspected) exposure to other viral communicable diseases (ICD-10 - Z20.828) Oct, Viral URI with cough (ICD-10 - J06.9) Advised patient that Influenza A/B, rapid COVID antigen, and Strep test were negative today in office. Discussed diagnosis with patient. Will send in rx of Myrtle and Flonase to use as directed. Encouraged [...] Patient care instructions given in writting by [facility] Care At Home document [employer] Other Evaluation note* Diagnosis Hyperthyroidism- Primary Thyrotoxicosis without mention of goiter or other cause, without mention of thyrotoxic crisis or storm [facility] Diagnosis Hyperthyroidism Thyrotoxicosis without mention of goiter or other cause, without mention of thyrotoxic crisis or storm [facility]* Diagnosis Hyperthyroidism Thyrotoxicosis without mention of goiter or other cause, without mention of thyrotoxic crisis or storm [facility]* Diagnosis Graves' eye disease- Primary Toxic diffuse goiter without mention of thyrotoxic crisis or storm Hyperthyroidism Thyrotoxicosis without mention of goiter or other cause, without mention of thyrotoxic crisis or storm [facility]* Diagnosis Hyperthyroidism- Primary Thyrotoxicosis without mention of goiter or other cause, without mention of thyrotoxic crisis or storm Class 1 obesity Vitamin D deficiency Unspecified vitamin D deficiency [facility]* Diagnosis Hyperthyroidism- Primary Thyrotoxicosis without mention of goiter or other cause, without mention of thyrotoxic crisis or storm [facility]* Diagnosis Insomnia, unspecified type- Primary Major depressive disorder, single episode, moderate (HCC) (CMS/HCC) Major depressive disorder, single episode, moderate Anxiety Anxiety state, unspecified Graves disease (CMS/HCC) Toxic diffuse goiter without mention of thyrotoxic crisis or storm [facility] Hyperthyroidism- Primary Thyrotoxicosis without mention of goiter or other cause, without mention of thyrotoxic crisis or storm Graves disease Toxic diffuse goiter without mention of thyrotoxic crisis or storm 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 documented [facility]* Diagnosis Enlarged thyroid (CMS/HCC)- Primary Goiter, unspecified Graves disease (CMS/HCC) Toxic diffuse goiter without mention of thyrotoxic crisis or storm Major depressive disorder, single episode, moderate (HCC) (CMS/HCC) Major depressive disorder, single episode, moderate documented in this encounter [facility]* Diagnosis Hyperthyroidism Thyrotoxicosis without mention of goiter or other cause, without mention of thyrotoxic crisis or storm documented in this encounter [facility] note* Diagnosis Influenza A- Primary Influenza with other respiratory manifestations Pain of toe, unspecified laterality Right foot pain Pain in soft tissues of limb Wheezing documented in this encounter [facility]* Diagnosis Hyperthyroidism Thyrotoxicosis without mention of goiter or other cause, without mention of thyrotoxic crisis or storm [facility]* Diagnosis Nausea- Primary Nausea alone documented in this encounter [facility] general Narrative - Reported* Type Description Date Medical History Asthma with status a sthmaticus, unspecified asthma severity Surgical History wisdom teeth Hospitalization History pneumonia [employer] Other Summary Purpose Family History No Family [...] Referral Specialty Diagnoses / Procedures Referred By Contac t Referred To Contact Ophthalmology Diagnoses Hyperthyroidism Graves' eye disease Procedures CONSULT TO OPHTHALMOLOGY OFFICE/[facility]IENT [facility] 60 MINUTES Chani Coles MD [address] [place] [address] Referral ID Status Reason Start Date Expiration Date Visits Requested Visits Authorized [id number] Authorized PCP Requested Referral 12/05/2023 12/04/2024 1 1 Additional Source Comments REASON FOR VISIT (unrecogniz ed section and content) Reason Comments Thyroid Problem Reason Comments Request for Clinical Notes Chart notes R equest Reason Comments Outside Lab Results Reason Onset Date Comments Refill Request 09/20/2023 Reason Onset Date Comments Refill Request 11/26/2023 Reason Comments lab letter Reason Comments Thyroid Problem F/u Reason Comments Results Reason Comments Insomnia Reason Comments Follow Up Reason Comments Refill Request Reason Onset Date Comments Results 04/15/2024 Reason Comments Follow-up Reason Onset Date Comments Refill Request 09/16/2024 INFORMATION SOURCE (unrecogn ized section and content) DATE CREATED AUTHOR 07/12/2022 [facility] DATE CREATED AUTHOR AUTHOR'S ORGANIZ ATION 11/28/2022 [facility] DATE CREATED AUTHOR AUTHOR'S ORGANIZ ATION 02/13/2023 [facility] DATE CREATED AUTHOR AUTHOR'S ORGANIZ ATION 08/19/2024 [facility] DATE CREATED AUTHOR AUTHOR'S ORGANIZ ATION 08/23/2024 [facility] d[facility] Specialists EPIC DATE CREATED AUTHOR AUTHOR'S ORGANIZ ATION 10/12/2024 [facility] Source Comments (unrecognize d section and content) In the event this informatio n is protected by the Federal Confidentiality of Alcohol and Drug Abuse Patient Records regulations: The Federal rules restrict any use of the information to criminally investigate or prosecute any alcohol or drug abuse patient.[facility] the event this information is protected by the Federal Confidentiality of Alcohol and Drug Abuse Patient Records regulations: The Federal rules restrict any use of the information to criminally investigate or prosecute any alcohol or drug abuse patient.[facility] the event this information is protected by the Federal Confidentiality of Alcohol and Drug Abuse Patient Records regulations: The Federal rules restrict any use of the information to criminally investigate or prosecute any alcohol or drug abuse patient.[facility] the event this information is protected by the Federal Confidentiality of Alcohol and Drug Abuse Patient Records regulations: The Federal rules restrict any use of the information to criminally investigate or prosecute any alcohol or drug abuse patient.[facility] the event this information is protected by the Federal Confidentiality of Alcohol and Drug Abuse Patient Records regulations: The Federal rules restrict any use of the information to criminally investigate or prosecute any alcohol or drug abuse patient.[facility] the event this information is protected by the Federal Confidentiality of Alcohol and Drug Abuse Patient Records regulations: The Federal rules restrict any use of the information to criminally investigate or prosecute any alcohol or drug abuse patient.[facility] the event this information is protected by the Federal Confidentiality of Alcohol and Drug Abuse Patient Records regulations: The Federal rules restrict any use of the information to criminally investigate or prosecute any alcohol or drug abuse patient.[facility] the event this information is protected by the Federal Confidentiality of Alcohol and Drug Abuse Patient Records regulations: The Federal rules restrict any use of the information to criminally investigate or prosecute any alcohol or drug abuse patient.[facility] the event this information is protected by the Federal Confidentiality of Alcohol and Drug Abuse Patient Records regulations: The Federal rules restrict any use of the information to criminally investigate or prosecute any alcohol or drug abuse patient.[facility] the event this information is protected by the Federal Confidentiality of Alcohol and Drug Abuse Patient Records regulations: The Federal rules restrict any use of the information to criminally investigate or prosecute any alcohol or drug abuse patient.[facility] the event this information is protected by the Federal Confidentiality of Alcohol and Drug Abuse Patient Records regulations: The Federal rules restrict any use of the information to criminally investigate or prosecute any alcohol or drug abuse patient.[facility] the event this information is protected by the Federal Confidentiality of Alcohol and Drug Abuse Patient Records regulations: The Federal rules restrict any use of the information to criminally investigate or prosecute any alcohol or drug abuse patient.[facility] the event this information is protected by the Federal Confidentiality of Alcohol and Drug Abuse Patient Records regulations: The Federal rules restrict any use of the information to criminally investigate or prosecute any alcohol or drug abuse patient.[facility] the event this information is protected by the Federal Confidentiality of Alcohol and Drug Abuse Patient Records regulations: The Federal rules restrict any use of the information to criminally investigate or prosecute any alcohol or drug abuse patient.[facility] the event this information is protected by the Federal Confidentiality of Alcohol and Drug Abuse Patient Records regulations: The Federal rules restrict any use of the information to criminally investigate or prosecute any alcohol or drug abuse patient.[facility] CenterIn the event this information is protected by the Federal Confidentiality of Alcohol and Drug Abuse Patient Records regulations: The Federal rules restrict any use of the information to criminally investigate or prosecute any alcohol or drug abuse patient.[facility] CenterIn the event this information is protected by the Federal Confidentiality of Alcohol and Drug Abuse Patient Records regulations: The Federal rules restrict any use of the information to criminally investigate or prosecute any alcohol or drug abuse patient.[facility] CenterIn the event this information is protected by the Federal Confidentiality of Alcohol and Drug Abuse Patient Records regulations: The Federal rules restrict any use of the information to criminally investigate or prosecute any alcohol or drug abuse patient.[facility] CenterIn the event this information is protected by the Federal Confidentiality of Alcohol and Drug Abuse Patient Records regulations: The Federal rules restrict any use of the information to criminally investigate or prosecute any alcohol or drug abuse patient.[facility] CenterIn the event this information is protected by the Federal Confidentiality of Alcohol and Drug Abuse Patient Records regulations: The Federal rules restrict any use of the information to criminally investigate or prosecute any alcohol or drug abuse patient.[facility] CenterIn the event this information is protected by the Federal Confidentiality of Alcohol and Drug Abuse Patient Records regulations: The Federal rules restrict any use of the information to criminally investigate or prosecute any alcohol or drug abuse patient.[facility] CenterIn the event this information is protected by the Federal Confidentiality of Alcohol and Drug Abuse Patient Records regulations: The Federal rules restrict any use of the information to criminally investigate or prosecute any alcohol or drug abuse patient.[facility] CenterIn the event this information is protected by the Federal Confidentiality of Alcohol and Drug Abuse Patient Records regulations: The Federal rules restrict any use of the information to criminally investigate or prosecute any alcohol or drug abuse patient.[facility] CenterIn the event this information is protected by the Federal Confidentiality of Alcohol and Drug Abuse Patient Records regulations: The Federal rules restrict any use of the information to criminally investigate or prosecute any alcohol or drug abuse patient.[facility] CenterIn the event this information is protected by the Federal Confidentiality of Alcohol and Drug Abuse Patient Records regulations: The Federal rules restrict any use of the information to criminally investigate or prosecute any alcohol or drug abuse patient.[facility] CenterIn the event this information is protected by the Federal Confidentiality of Alcohol and Drug Abuse Patient Records regulations: The Federal rules restrict any use of the information to criminally investigate or prosecute any alcohol or drug abuse patient.[facility] Care Teams (unrecognized sec tion and content) Residential Field Manager Relationship Specialty Start Date End Date Evelin Gold MD [address] [place] [address] PCP - General Family Medicine 11/26/22 Residential Field Manager Relationship Specialty Start Date End Date Evelin Gold MD [address] [place] [address] PCP - General Family Medicine 11/26/22 Residential Field Manager Relationship Specialty Start Date End Date Evelin Gold MD [address] [place] [address] PCP - General Family Medicine 11/26/22 Residential Field Manager Relationship Specialty Start Date End Date Evelin Gold MD [address] [place] [address] PCP - General Family Medicine 11/26/22 Residential Field Manager Relationship Specialty Start Date End Date Evelin Gold MD [address] [place] [address] PCP - General Family Medicine 11/26/22 Residential Field Manager Relationship Specialty Start Date End Date Evelin Gold MD [address] [facility] [place] [address] PCP - General Family Medicine 11/26/22 FOR [...] BE BASED ON THE PRIMARY CLINICAL RECORDS. [facility]. provides no warranty or guarantee of the accuracy or completeness of information in this document.
[2024-10-26 12:14] LABS: Basophils Percent Auto 0.3 % (0.2-2.0); Eosinophils Absolute Auto 0.1 10^3/uL (0.0-0.7); Eosinophils Percent Auto 0.4 % (0.9-7.0); Hematocrit 46.9 % (36.0-48.0); Hemoglobin 16.2 g/dL (12.0-16.0); Immature Granulocytes Abs Auto 0.03 10^3/uL (0.00-0.03); Immature Granulocytes Pct Auto 0.2 % (0.0-0.5); Lymphocytes Absolute Auto 1.9 10^3/uL (1.2-3.8); Lymphocytes Percent Auto 13.5 % (20.5-60.0); Mean Corpuscular HGB Conc 34.5 g/dL (29.9-35.2); Mean Corpuscular Hemoglobin 30.6 pg (26.7-34.0); Mean Corpuscular Volume 88.5 fL (81.0-99.0); Mean Platelet Volume 9.8 fL (9.5-13.5); Monocytes Absolute Auto 0.7 10^3/uL (0.3-0.8); Monocytes Percent Auto 4.9 % (1.7-12.0); Neutrophils Absolute Auto 11.1 10^3/uL (1.4-6.5); Neutrophils Percent Auto 80.7 % (43.0-75.0); Platelet Count 343 10^3/uL (150-450); Red Cell Distribution Width 12.3 % (11.0-15.0); White Blood Count 13.8 10^3/uL (4.0-11.0)
[2024-10-26] MEDS: ONDANSETRON PF 4 MG/2 ML VIAL IV (12:14)
[2024-10-26] MEDS: 0.9 % SODIUM CHLORIDE 1,000 ML 1000 ML IV (12:14)
[2024-10-26 12:21] LABS: Anion Gap 16.1; BUN Creatinine Ratio 15.8; Calcium 9.4 mg/dL (8.5-10.1); Carbon Dioxide 24.1 mmol/L (21.0-32.0); Chloride 101 mmol/L (98-107); Estimated GFR (African America >60 (>=60 mL/min/1.73m^2); Estimated GFR (Non-African Ame >60 (>=60 mL/min/1.73m^2); Glucose 85 mg/dL (74-106); Potassium 3.2 mmol/L (3.5-5.1); Sodium 138 mmol/L (136-145)
[2024-10-26 12:42] LABS: HCG Qualitative NEGATIVE (NEGATIVE); Internal Control Within Normal Limits
== END 2024-10-26 13:40 | disposition home or self-care (01) ==
PROVIDERS: Emergency Provider Emergency Medicine; PCP Nurse Practitioner Family
DX: R11.2 Nausea with vomiting, unspecified (principal); R19.7 Diarrhea, unspecified
CPT/HCPCS: 36415; 80048; 84703; 85025; 96361; 96374; 99284; J2405